=== PATIENT | female | born 1940 | race Caucasian/White ===

== ENCOUNTER 2017-02-28 17:03 | Inpatient (IN) | payer MEDICARE ==
[2017-02-28 17:04] VITALS: BMI 34.2
--- NOTE | 2017-02-28 17:21 | C.PDOC ---
History Of Present Illness 76 year old female was brought to the ED by EMS for complaints of sudden onset of shortness of breath. As per EMS, patient had diminished breath sounds and wheezing in the field. Patient was placed on BiPAP and denies fever, chest pain , weakness, or numbness. Time Seen by Provider: 02/28/17 17:15 Chief Complaint (Nursing): Respiratory Distress History Per: Patient History/Exam Limitations: no limitations Onset/Duration Of Symptoms: Hrs, Sudden Onset Current Symptoms Are (Timing): Still Present Associated Symptoms: denies: Nausea, Diaphoresis Recent travel outside of the [place]: No Additional History Per: Prior Records Past Medical History Vital Signs: Last Vital Signs Temp 99 F 02/28/17 17:23 Pulse 90 02/28/17 18:39 Resp 20 02/28/17 18:39 BP 131/74 02/28/17 18:39 Pulse Ox 98 02/28/17 19:42 - Medical History PMH: Alzheimer's Disease, Arthritis, Asthma, CHF, HTN, Hypercholesterolemia Denies: Chronic Kidney Disease Surgical History: Cholecystectomy - [facility] Procedures ASSISTANCE WITH RESPIRATORY VENTILATION, >96 HRS, CPAP (03/05/16) MEASURE OF CARDIAC SAMPL & PRESSURE, L HEART, PERC APPROACH (03/05/16) PLAIN RADIOGRAPHY OF LEFT HEART USING OTHER CONTRAST (03/05/16) PLAIN RADIOGRAPHY OF MULT COR ART USING OTH CONTRAST (03/05/16) Family History: States: Unknown Family Hx - Social History Hx Alcohol Use: No Hx Substance Use: No - Immunization History Hx Tetanus Toxoid Vaccination: Yes Hx Influenza Vaccination: Yes (2016) Hx Pneumococcal Vaccination: No Physical Exam - Physical Exam Appears: Non-toxic, In Acute Distress (moderate respiratory distress ) Skin: Warm, Dry Head: Atraumatic Eye(s): bilateral: Normal Inspection Oral Mucosa: Moist Neck: Supple Chest: Symmetrical, No Deformity Cardiovascular: Rhythm Regular, No Murmur Respiratory: Normal Breath Sounds, No Rales, No Rhonchi, No Wheezing Gastrointestinal/Abdominal: Soft, No Tenderness, No Distention, No Guarding, No Rebound Extremity: No Pedal Edema, No Calf Tenderness, Capillary Refill (good capillary refill, less than two seconds ), No Deformity, No Swelling Neurological/Psych: Oriented x3 ED Course And Treatment - Laboratory Results Result Diagrams: 02/28/17 18:18 02/28/17 18:18 Lab Interpretation: Abnormal ([facility] 3100 H) ECG: Interpreted By Me, Viewed By Me ECG Rhythm: Sinus Rhythm, L BBB (unchanged from prior) ECG Interpretation: Normal, Abnormal Rate From EC O2 Sat by Pulse Oximetry: 98 (room air ) - Radiology CXR: Interpreted by Me CXR Interpretation: Yes: Other (+CHF) Progress Note: lasix, BiPap well tolerated. 1800 and 0: d/w Dr. James, PMD , ok to tele Obs Medical Decision Making Medical Decision Making: CHF, hyponatremia diuresis will help with hyponatremia as well. Disposition Doctor Will See Patient In The: Hospital Counseled Patient/Family Regarding: Studies Performed, Diagnosis - Disposition Disposition: HOSPITALIZED Disposition Time: 19:42 Condition: GOOD - Clinical Impression Clinical Impression: Acute respiratory distress, CHF (congestive heart failure) - Scribe Statement The provider has reviewed the documentation as recorded by the Scribe Lola Tavarez All medical record entries made by the Scribe were at my direction and personally dictated by me. I have reviewed the chart and agree that the record accurately reflects my personal performance of the history, physical exam, medical decision making, and the department course for this patient. I have also personally directed, reviewed, and agree with the discharge instructions and disposition.
--- NOTE | 2017-02-28 17:40 | RAD ---
PROCEDURE: CHEST RADIOGRAPH, 1 VIEW HISTORY: SOB COMPARISON: Comparison is made to 03/05/2016 FINDINGS: LUNGS: There is mild to moderate pulmonary vascular congestion. Reticular opacity at the right lower lobe noted. PLEURA: This blunting of the right costophrenic angle. CARDIOVASCULAR: The cardiac silhouette is mildly enlarged. OSSEOUS STRUCTURES: No significant abnormalities. VISUALIZED UPPER ABDOMEN: Normal. OTHER FINDINGS: None. IMPRESSION: Suspicious for mild pulmonary vascular congestion. Reticular opacities at the right lower lobe may represent atelectasis. Blunting of the right costophrenic angle may be due to small pleural effusion. The
[2017-02-28 18:30] LABS: BASO # 0.1 K/uL (0.0-0.2); BASO % 0.6 % (0.0-2.0); EOS # 0.4 K/uL (0.0-0.7); HEMATOCRIT 38.7 % (34.0-47.0); LYMPH # 1.7 K/uL (1.0-4.3); LYMPH % 16.5 % (20.0-40.0); MEAN CELL VOLUME 88.2 fL (81.0-99.0); MEAN CORPUSCULAR HEMOGLOBIN 29.4 pg (27.0-31.0); MEAN CORPUSCULAR HGB CONC 33.4 g/dL (33.0-37.0); MEAN PLATELET VOLUME 7.5 fL (7.2-11.7); MONO # 0.3 K/uL (0.0-0.8); RED CELL DISTRIBUTION WIDTH 13.8 % (11.5-14.5); WHITE BLOOD COUNT 10.3 K/uL (4.8-10.8)
[2017-02-28 18:43] LABS: CHLORIDE 82 mmol/L (98-107)
[2017-02-28 18:44] LABS: POTASSIUM 5.1 mmol/L (3.6-5.2)
[2017-02-28 18:46] LABS: ALB/GLOB RATIO 1.3 (1.0-2.1); ALKALINE PHOSPHATASE 57 U/L (38-126); AST/SGOT 56 U/L (14-36); BILIRUBIN,TOTAL 0.8 mg/dL (0.2-1.3); BLOOD UREA NITROGEN 17 mg/dL (7-17); CARBON DIOXIDE 29 mmol/L (22-30); GFR AFRICAN-AMERICAN > 60; GLUCOSE,RANDOM 241 mg/dL (65-105); TOTAL PROTEIN 6.3 g/dL (6.3-8.3)
[2017-02-28 18:47] LABS: ALT/SGPT 36 U/L (9-52); CALCIUM 8.5 mg/dl (8.6-10.4)
[2017-02-28 19:06] LABS: SODIUM 117 mmol/L (132-148)
[2017-02-28 20:39] LABS: RBC URINE 11 /hpf (0-3); URINE BACTERIA RARE (<OCC); URINE BILIRUBIN NEGATIVE (NEGATIVE); URINE BLOOD 1+ (NEGATIVE); URINE COLOR Straw (YELLOW); URINE GLUCOSE (UA) 3+ mg/dL (Normal); URINE KETONE NEGATIVE (NEGATIVE); URINE LEUKOCYTE ESTERASE NEG Leu/uL (Negative); URINE PROTEIN 2+ mg/dL (NEGATIVE); URINE UROBILINOGEN NORMAL mg/dL (0.2-1.0); WBC URINE 4 /hpf (0-5)
--- NOTE | 2017-02-28 20:48 | CP.PCM.HP ---
History of Present Illness - History of Present Illness History of Present Illness: COMPREHENSIVE HISTORY & PHYSICAL EXAM HPI PT. IS C/O SOB FOR FEW DAYS WITH INCREASING LETHERGY . IN THE ER PT HAD NA OF 117, HIGH BNP WITH MILD CHF ON CXR . PT WAS GIVEN IV LASIX , 2 HRS LATER NA IS STILL 119 . SOB HAS IMPROVED ON BIPAP PAST HIST. WAS ADMITTED IN LAST YEAR WITH CP, POS TNI, CARDIAC CATH , NORMAL CORONARIES AND LV EF . PT WAS TREATED FOR COPD , DM PERSONAL HIST: Smoking. N Alcohol. N Allergy N Travel_- . FAMILY HIST : ROS : Constitutional: Negative for weight change, Eyes: Negative for redness, swelling, itching, discharge, vision changes, blurry vision, double vision, glaucoma, cataracts, Ears: Negative for hearing loss, ringing, , tinnitus, vertigo Nose: Negative for rhinorrhea, stuffiness, sniffing, itching, postnasal drip, discoloration, nasal congestion and epistaxis. Throat: Negative for throat clearing, sore throat, hoarseness, difficulty swallowing and difficulty speaking. Respiratory: Negative for cough, , sputum production, chest tightness, , pleuritic chest pain ,daytime somnolence, chronic cough, hemoptysis, snoring at night, Cardiovascular: Negative for chest pain, palpitations,Edema of legs, leg cramps , angina, claudication, , irregular heartbeat, Neurology: Negative for irritability, muscle weakness, numbness and tingling, seizures, tremors, migraines, slurred speech, syncope, memory loss, mood changes , recurrent headaches Gastrointestinal: Negative for difficulty swallowing, diarrhea, constipation, black stools, rectal bleeding, nausea, flatulence, reflux, poor appetite, changes in bowel habits, abdominal pain Genitourinary: Negative for frequent urination, hematuria, discharge, incontinence, urinary retention, frequent UTI, Psychiatric: Negative for depression, anxiety/panic, suicidal tendencies, Musculoskeletal: Negative for swollen joints, back pain, , neck pain, morning stiffness of joints, . Skin: Negative for rash, ulcers, itching, dry skin and pigmented lesions. P/E: Constitutional: Appears stated age and in no apparent distress. Head: Normocephalic. Ears: External ear canals patent without inflammation. Tympanic membranes intact with normal light reflex and landmark. Eyes: Pupils are central, bilaterally equal, symmetrical and reacts to light with normal movements and no icterus or pallor. Nose: External nares are patent. Mucosa is pink Mouth-Throat: Good general appearance and condition. No post-pharyngeal/oropharyngeal erythema and tonsillar hypertrophy. Good dental hygiene. Neck-Lymphatic: Neck is supple with normal ROM, no thyromegaly, lymph nodes or masses. JVD is normal with no carotid bruit. Lungs: JULIA RONCHI Cardiovascular: S1 and S2 are normal with no murmurs, gallops and rub. GI Exam: No hepatomegaly. Abdomen is soft and non-tender. No Organomegaly , masses or hernias are evident and bowel sounds are normal and active. Neurology: Higher function and all cranial nerves intact, with no gross motor or sensory deficit. Superficial and deep reflexes are normal with downwards planters. No cerebellar deficit with normal gait. Musculoskeletal: No tender spots with normal curvature of the spine with no swelling or restricted ROM of the small and large joints. Extremities: Homans sign absent. Intact pulses with no pitting edema, calf tenderness or skin color changes. Skin: No rash, eruptions or abnormal skin pigmentation LAB/RADIOLOGY: ASSESMENT : COPD WITH EXACERBATION DIASTOLIC HF , HFpEF HYPONATREMIA SEC TO INTRAVASCULAR VOL. EXPANSION HTN/T2DM PLAN: WILL NEED IV NS WITH LASIX NEPHROLOGY EVAL BRONCHODILATORS Present on Admission - Present on Admission Any Indicators Present on Admission: No Past Patient History - Past Medical History & Family History Past Medical History?: Yes - Past Social History Smoking Status: Never Smoked - CARDIAC Hx Congestive Heart Failure: Yes Hx Hypercholesterolemia: Yes Hx Hypertension: Yes - PULMONARY Hx Asthma: Yes - NEUROLOGICAL Hx Alzheimer's Disease: Yes - HEENT Hx HEENT Problems: Yes Hx Cataracts: Yes (bilateral) - RENAL Hx Chronic Kidney Disease: No - ENDOCRINE/METABOLIC Hx Endocrine Disorders: Yes Hx Diabetes Mellitus Type 2: Yes - HEMATOLOGICAL/ONCOLOGICAL Hx Blood Disorders: Yes - INTEGUMENTARY Hx Dermatological Problems: No - MUSCULOSKELETAL/RHEUMATOLOGICAL Hx Arthritis: Yes - GASTROINTESTINAL Hx Gastrointestinal Disorders: No - GENITOURINARY/GYNECOLOGICAL Hx Genitourinary Disorders: No - PSYCHIATRIC Hx Substance Use: No - SURGICAL HISTORY Hx Cholecystectomy: Yes - ANESTHESIA Hx Anesthesia: Yes Hx Anesthesia Reactions: No Hx Malignant Hyperthermia: No Meds Allergies/Adverse Reactions: Allergies Allergy/AdvReac Type Severity Reaction Status Date / Time No Known Allergies Allergy Verified 02/28/17 17:13 Results - Vital Signs Recent Vital Signs: Last Vital Signs Temp 99 F 02/28/17 17:23 Pulse 90 02/28/17 18:39 Resp 20 02/28/17 18:39 BP 131/74 02/28/17 18:39 Pulse Ox 98 02/28/17 19:42 - Labs Result Diagrams: 03/01/17 05:47 03/01/17 05:47 Labs: Laboratory Results - last 24 hr 02/28/17 20:25 Urine Color Straw Urine Clarity Clear Urine pH 6.0 Ur Specific [place] 1.003 Urine Protein 2+ H Urine Glucose (UA) 3+ H Urine Ketones Negative Urine Blood 1+ H Urine Nitrate Negative Urine Bilirubin Negative Urine Urobilinogen Normal Ur Leukocyte Esterase Neg Urine WBC (Auto) 4 Urine RBC (Auto) 11 H Urine Bacteria Rare
[2017-02-28] MEDS ORDERED: Home Med 1 UNIT (Atorvastatin Calcium [Atorvastatin Calcium] 10 MG) PO SCH (22:00)
[2017-02-28] MEDS: (Novolin R) Insulin Human Regular 100 units/ml vial SC SCH (22:56)
[2017-02-28 23:38] LABS: ALB/GLOB RATIO 1.3 (1.0-2.1); ALKALINE PHOSPHATASE 66 U/L (38-126); ALT/SGPT 43 U/L (9-52); AST/SGOT 26 U/L (14-36); BILIRUBIN,TOTAL 0.3 mg/dL (0.2-1.3); BLOOD UREA NITROGEN 18 mg/dL (7-17); CARBON DIOXIDE 25 mmol/L (22-30); CHLORIDE 82 mmol/L (98-107); GFR AFRICAN-AMERICAN > 60; GLUCOSE,RANDOM 271 mg/dL (65-105); TOTAL PROTEIN 5.9 g/dL (6.3-8.3)
[2017-02-28 23:48] LABS: SODIUM 119 mmol/L (132-148)
[2017-03-01] MEDS ORDERED: Sodium Chloride 0.9% 1,000 ML ONE (02:14)
[2017-03-01] MEDS: Sodium Chloride 0.9% 1,000 ML IV SCH (02:23)
[2017-03-01 02:34] LABS: URIC ACID 2.5 mg/dL (2.2-7.5)
[2017-03-01 03:05] LABS: CORTISOL AM 8.5 ug/dL (4.46-22.7)
[2017-03-01 03:06] LABS: THYROID STIMULATING HORMONE 1.44 mIU/L (0.46-4.68)
[2017-03-01 05:50] LABS: BASO % 0.4 % (0.0-2.0); EOS % 0.1 % (0.0-4.0); HEMATOCRIT 39.9 % (34.0-47.0); LYMPH % 9.4 % (20.0-40.0); MEAN CELL VOLUME 87.3 fL (81.0-99.0); MEAN CORPUSCULAR HEMOGLOBIN 29.3 pg (27.0-31.0); MEAN CORPUSCULAR HGB CONC 33.6 g/dL (33.0-37.0); MEAN PLATELET VOLUME 7.1 fL (7.2-11.7); MONO # 0.2 K/uL (0.0-0.8); MONO % 1.6 % (0.0-10.0); PLATELET COUNT 286 K/uL (130-400); RED CELL DISTRIBUTION WIDTH 13.8 % (11.5-14.5); WHITE BLOOD COUNT 10.2 K/uL (4.8-10.8)
[2017-03-01 06:16] LABS: ALB/GLOB RATIO 1.4 (1.0-2.1); BILIRUBIN,TOTAL 0.2 mg/dL (0.2-1.3); CALCIUM 9.2 mg/dl (8.6-10.4); POTASSIUM 4.2 mmol/L (3.6-5.2); TOTAL PROTEIN 6.3 g/dL (6.3-8.3)
[2017-03-01 07:32] LABS: NEUTROPHIL 93 % (50-75); TOTAL CELLS COUNTED 100
[2017-03-01] MEDS ORDERED: Tolvaptan 15 MG TAB PO ONE ×2 (09:05→11:00)
[2017-03-01] MEDS: (Novolin R) Insulin Human Regular 100 units/ml vial SC SCH ×4 (09:16→21:29)
[2017-03-01] MEDS ORDERED: LOTEPREDNOL ETABONATE OP SCH (10:00)
[2017-03-01] MEDS ORDERED: ALREX OU PRN (10:00)
[2017-03-01] MEDS: Aspirin 325 mg EC Tablets PO SCH (11:14)
[2017-03-01] MEDS: Multivitamin With Minerals Tab PO SCH (11:14)
[2017-03-01] MEDS: ALREX OU PRN (14:39)
--- NOTE | 2017-03-01 15:01 | CP.PCM.PN ---
Subjective - Date & Time of Evaluation Date of Evaluation: 03/01/17 Time of Evaluation: 15:01 - Subjective Subjective: Na IS NOW UP TO 123 Objective - Vital Signs/Intake and Output Vital Signs (last 24 hours): Temp Pulse Resp BP Pulse Ox 97.8 F 82 20 169/69 H 100 03/01/17 07:29 03/01/17 08:10 03/01/17 08:45 03/01/17 07:29 03/01/17 08:45 Intake and Output: 03/01/17 03/01/17 11:59 23:59 Intake Total 270 Output Total 1575 Balance -1305 - Medications Medications: Current Medications Allopurinol (Zyloprim) 300 mg PO DAILY [facility] Last Admin: 03/01/17 12:00 Dose: 300 mg Aspirin (Ecotrin) 325 mg PO DAILY [facility] Last Admin: 03/01/17 11:14 Dose: 325 mg Donepezil HCl (Aricept) 5 mg PO DAILY [facility] Last Admin: 03/01/17 11:15 Dose: 5 mg Gabapentin (Neurontin) 300 mg PO DAILY [facility] Last Admin: 03/01/17 11:15 Dose: 300 mg Glimepiride (Amaryl) 2 mg PO BID [facility] Last Admin: 03/01/17 11:17 Dose: 2 mg Home Med (Patient's Own Drops) 1 drop OU TID PRN PRN Reason: DIRECTED Last Admin: 03/01/17 14:39 Dose: 1 drop Sodium Chloride (Sodium Chloride 0.9%) 1,000 mls @ 40 mls/hr IV .Q24H [facility] Last Admin: 03/01/17 02:23 Dose: 40 mls/hr Insulin Human Regular (Novolin R) 0 unit SC ACHS [facility] PRN Reason: Protocol Last Admin: 03/01/17 13:30 Dose: Not Given Metoprolol Tartrate (Lopressor) 150 mg PO DAILY [facility] Last Admin: 03/01/17 11:17 Dose: 150 mg Multivitamins/Minerals (Therapeutic-M Tab) 1 tab PO DAILY [facility] Last Admin: 03/01/17 11:14 Dose: 1 tab Rosuvastatin Calcium (Crestor) 5 mg PO HS [facility] Last Admin: 02/28/17 23:08 Dose: 5 mg Sitagliptin Phosphate (Januvia) 50 mg PO DAILY [facility] Last Admin: 03/01/17 11:15 Dose: 50 mg - Labs Labs: 03/01/17 05:47 03/01/17 05:47
[2017-03-01 17:18] LABS: POTASSIUM 4.1 mmol/L (3.6-5.2)
[2017-03-01 17:21] LABS: CALCIUM 8.4 mg/dl (8.6-10.4)
--- NOTE | 2017-03-01 18:49 | CP.PCM.CON ---
History of Present Illness - History of Present Illness History of Present Illness: pt is seen and examined, full consult is dictated # 1. Hyponatremia 2. chf 3. htn r/o siadh vs sec to HCTZ bmp in am increase ivf 70 ml/hr Past Patient History - Past Medical History & Family History Past Medical History?: Yes - Past Social History Smoking Status: Never Smoked - CARDIAC Hx Congestive Heart Failure: Yes Hx Hypercholesterolemia: Yes Hx Hypertension: Yes - PULMONARY Hx Asthma: Yes - NEUROLOGICAL Hx Alzheimer's Disease: Yes - HEENT Hx HEENT Problems: Yes Hx Cataracts: Yes (bilateral) - RENAL Hx Chronic Kidney Disease: No - ENDOCRINE/METABOLIC Hx Endocrine Disorders: Yes Hx Diabetes Mellitus Type 2: Yes - HEMATOLOGICAL/ONCOLOGICAL Hx Blood Disorders: Yes - INTEGUMENTARY Hx Dermatological Problems: No - MUSCULOSKELETAL/RHEUMATOLOGICAL Hx Arthritis: Yes - GASTROINTESTINAL Hx Gastrointestinal Disorders: No - GENITOURINARY/GYNECOLOGICAL Hx Genitourinary Disorders: No - PSYCHIATRIC Hx Substance Use: No - SURGICAL HISTORY Hx Cholecystectomy: Yes - ANESTHESIA Hx Anesthesia: Yes Hx Anesthesia Reactions: No Hx Malignant Hyperthermia: No Meds Allergies/Adverse Reactions: Allergies Allergy/AdvReac Type Severity Reaction Status Date / Time No Known Allergies Allergy Verified 02/28/17 17:13 - Medications Medications: Current Medications Albuterol/Ipratropium (Duoneb 3 Mg/0.5 Mg (3 Ml) Ud) 3 ml INH RQ6 [facility] Allopurinol (Zyloprim) 300 mg PO DAILY [facility] Last Admin: 03/01/17 12:00 Dose: 300 mg Aspirin (Ecotrin) 325 mg PO DAILY [facility] Last Admin: 03/01/17 11:14 Dose: 325 mg Donepezil HCl (Aricept) 5 mg PO DAILY [facility] Last Admin: 03/01/17 11:15 Dose: 5 mg Gabapentin (Neurontin) 300 mg PO DAILY [facility] Last Admin: 03/01/17 11:15 Dose: 300 mg Glimepiride (Amaryl) 2 mg PO BID [facility] Last Admin: 03/01/17 17:32 Dose: 2 mg Heparin Sodium (Porcine) (Heparin) 5,000 units SC Q12 [facility] Home Med (Patient's Own Drops) 1 drop OU TID PRN PRN Reason: DIRECTED Last Admin: 03/01/17 14:39 Dose: 1 drop Sodium Chloride (Sodium Chloride 0.9%) 1,000 mls @ 40 mls/hr IV .Q24H [facility] Last Admin: 03/01/17 02:23 Dose: 40 mls/hr Insulin Human Regular (Novolin R) 0 unit SC ACHS [facility] PRN Reason: Protocol Last Admin: 03/01/17 16:41 Dose: 3 unit Metoprolol Tartrate (Lopressor) 150 mg PO DAILY [facility] Multivitamins/Minerals (Therapeutic-M Tab) 1 tab PO DAILY [facility] Last Admin: 03/01/17 11:14 Dose: 1 tab Pneumococcal Polyvalent Vaccine (Pneumovax 23 Vaccine) 0.5 ml IM .ONCE ONE Stop: 03/04/17 10:01 Rosuvastatin Calcium (Crestor) 5 mg PO HS [facility] Last Admin: 02/28/17 23:08 Dose: 5 mg Sitagliptin Phosphate (Januvia) 50 mg PO DAILY [facility] Last Admin: 03/01/17 11:15 Dose: 50 mg Results - Vital Signs Recent Vital Signs: Last Vital Signs Temp 98 F 03/01/17 15:12 Pulse 77 03/01/17 18:37 Resp 20 03/01/17 15:12 BP 166/79 H 03/01/17 15:12 Pulse Ox 100 03/01/17 15:12 - Labs Result Diagrams: 03/01/17 05:47 03/01/17 17:05 Labs: Laboratory Results - last 24 hr 02/28/17 02/28/17 02/28/17 20:25 22:33 23:15 WBC RBC Hgb Hct MCV MCH MCHC RDW Plt Count MPV Neut % (Auto) Lymph % (Auto) [place] % (Auto) Eos % (Auto) Baso % (Auto) Neut # Lymph # [place] # Eos # Baso # Neutrophils % (Manual) Lymphocytes % (Manual) Monocytes % (Manual) Platelet Estimate RBC Morphology Sodium 119 L* Potassium 4.0 Chloride 82 L Carbon Dioxide 25 Anion Gap 16 BUN 18 H Creatinine 1.0 Est GFR ( Amer) > 60 Est GFR (Non-Af Amer) 54 POC Glucose (mg/dL) 296 H Random Glucose 271 H Serum Osmolality Uric Acid Calcium 9.0 Total Bilirubin 0.3 AST 26 ALT 43 Alkaline Phosphatase 66 Total Creatine Kinase CK-MB (Mass) Troponin I, Quant Total Protein 5.9 L Albumin 3.3 L Globulin 2.6 Albumin/Globulin Ratio 1.3 TSH 3rd Generation Cortisol AM Sample Urine Color Straw Urine Clarity Clear Urine pH 6.0 Ur Specific [place] 1.003 Urine Protein 2+ H Urine Glucose (UA) 3+ H Urine Ketones Negative Urine Blood 1+ H Urine Nitrate Negative Urine Bilirubin Negative Urine Urobilinogen Normal Ur Leukocyte Esterase Neg Urine WBC (Auto) 4 Urine RBC (Auto) 11 H Urine Bacteria Rare Ur Random Sodium Ur Random Potassium 03/01/17 03/01/17 03/01/17 02:20 02:20 02:20 WBC RBC Hgb Hct MCV MCH MCHC RDW Plt Count MPV Neut % (Auto) Lymph % (Auto) [place] % (Auto) Eos % (Auto) Baso % (Auto) Neut # Lymph # [place] # Eos # Baso # Neutrophils % (Manual) Lymphocytes % (Manual) Monocytes % (Manual) Platelet Estimate RBC Morphology Sodium Potassium Chloride Carbon Dioxide Anion Gap BUN Creatinine Est GFR ( Amer) Est GFR (Non-Af Amer) POC Glucose (mg/dL) Random Glucose Serum Osmolality 272 Uric Acid 2.5 Calcium Total Bilirubin AST ALT Alkaline Phosphatase Total Creatine Kinase 127 CK-MB (Mass) 4.01 H Troponin I, Quant 0.0430 Total Protein Albumin Globulin Albumin/Globulin Ratio TSH 3rd Generation 1.44 Cortisol AM Sample 8.5 Urine Color Urine Clarity Urine pH Ur Specific [place] Urine Protein Urine Glucose (UA) Urine Ketones Urine Blood Urine Nitrate Urine Bilirubin Urine Urobilinogen Ur Leukocyte Esterase Urine WBC (Auto) Urine RBC (Auto) Urine Bacteria Ur Random Sodium Ur Random Potassium 03/01/17 03/01/17 03/01/17 02:20 05:47 05:47 WBC 10.2 RBC 4.57 Hgb 13.4 Hct 39.9 MCV 87.3 MCH 29.3 MCHC 33.6 RDW 13.8 Plt Count 286 MPV 7.1 L Neut % (Auto) 88.5 H Lymph % (Auto) 9.4 L [place] % (Auto) 1.6 Eos % (Auto) 0.1 Baso % (Auto) 0.4 Neut # 9.0 H Lymph # 1.0 [place] # 0.2 Eos # 0.0 Baso # 0.0 Neutrophils % (Manual) 93 H Lymphocytes % (Manual) 6 L Monocytes % (Manual) 1 Platelet Estimate Normal RBC Morphology Normal Sodium 123 L Potassium 4.2 Chloride 83 L Carbon Dioxide 26 Anion Gap 18 BUN 18 H Creatinine 1.2 Est GFR ( Amer) 53 Est GFR (Non-Af Amer) 44 POC Glucose (mg/dL) Random Glucose 306 H Serum Osmolality Uric Acid Calcium 9.2 Total Bilirubin 0.2 AST 25 ALT 39 Alkaline Phosphatase 66 Total Creatine Kinase CK-MB (Mass) Troponin I, Quant Total Protein 6.3 Albumin 3.7 Globulin 2.6 Albumin/Globulin Ratio 1.4 TSH 3rd Generation Cortisol AM Sample Urine Color Urine Clarity Urine pH Ur Specific [place] Urine Protein Urine Glucose (UA) Urine Ketones Urine Blood Urine Nitrate Urine Bilirubin Urine Urobilinogen Ur Leukocyte Esterase Urine WBC (Auto) Urine RBC (Auto) Urine Bacteria Ur Random Sodium 16 Ur Random Potassium 19.0 03/01/17 03/01/17 03/01/17 07:55 11:32 16:09 WBC RBC Hgb Hct MCV MCH MCHC RDW Plt Count MPV Neut % (Auto) Lymph % (Auto) [place] % (Auto) Eos % (Auto) Baso % (Auto) Neut # Lymph # [place] # Eos # Baso # Neutrophils % (Manual) Lymphocytes % (Manual) Monocytes % (Manual) Platelet Estimate RBC Morphology Sodium Potassium Chloride Carbon Dioxide Anion Gap BUN Creatinine Est GFR ( Amer) Est GFR (Non-Af Amer) POC Glucose (mg/dL) 306 H 312 H 243 H Random Glucose Serum Osmolality Uric Acid Calcium Total Bilirubin AST ALT Alkaline Phosphatase Total Creatine Kinase CK-MB (Mass) Troponin I, Quant Total Protein Albumin Globulin Albumin/Globulin Ratio TSH 3rd Generation Cortisol AM Sample Urine Color Urine Clarity Urine pH Ur Specific [place] Urine Protein Urine Glucose (UA) Urine Ketones Urine Blood Urine Nitrate Urine Bilirubin Urine Urobilinogen Ur Leukocyte Esterase Urine WBC (Auto) Urine RBC (Auto) Urine Bacteria Ur Random Sodium Ur Random Potassium 03/01/17 17:05 WBC RBC Hgb Hct MCV MCH MCHC RDW Plt Count MPV Neut % (Auto) Lymph % (Auto) [place] % (Auto) Eos % (Auto) Baso % (Auto) Neut # Lymph # [place] # Eos # Baso # Neutrophils % (Manual) Lymphocytes % (Manual) Monocytes % (Manual) Platelet Estimate RBC Morphology Sodium 123 L Potassium 4.1 Chloride 86 L Carbon Dioxide 27 Anion Gap 14 BUN 25 H Creatinine 1.1 Est GFR ( Amer) 58 Est GFR (Non-Af Amer) 48 POC Glucose (mg/dL) Random Glucose 194 H Serum Osmolality Uric Acid Calcium 8.4 L Total Bilirubin AST ALT Alkaline Phosphatase Total Creatine Kinase CK-MB (Mass) Troponin I, Quant Total Protein Albumin Globulin Albumin/Globulin Ratio TSH 3rd Generation Cortisol AM Sample Urine Color Urine Clarity Urine pH Ur Specific [place] Urine Protein Urine Glucose (UA) Urine Ketones Urine Blood Urine Nitrate Urine Bilirubin Urine Urobilinogen Ur Leukocyte Esterase Urine WBC (Auto) Urine RBC (Auto) Urine Bacteria Ur Random Sodium Ur Random Potassium
[2017-03-01] MEDS: Albuterol-Ipratrop 3 mg / 0.5 (3 ml) UD INH SCH (20:27)
[2017-03-02] MEDS: Albuterol-Ipratrop 3 mg / 0.5 (3 ml) UD INH SCH ×4 (01:52→19:32)
[2017-03-02] MEDS: Sodium Chloride 0.9% 1,000 ML IV SCH (01:54)
--- NOTE | 2017-03-02 06:39 | CON ---
RENAL CONSULTATION DATE: LOCATION: The patient is located in room 551, bed A. REQUESTING PHYSICIAN: Valerio James MD REASON FOR FOLLOWUP AND CONSULTATION: For evaluation of the hyponatremia. HISTORY OF PRESENT ILLNESS: Mrs. Chavez is a 76-year-old elderly obese female with a past medical history significant for longstanding hypertension, diabetes, hyperlipidemia, asthma, never intubated was admitted with a chief complaint of sudden on set of shortness of breath since yesterday morning. As per the patient's family, since she woke up yesterday morning, she started having shortness of breath and also wheezing. Complaints of cough associated with white sputum. Denies any fever. Denies any chest pain, palpitation. Denies any abdominal pain, nausea, vomiting, diarrhea. The patient was found to have hyponatremia in the emergency room and renal consult was requested for further evaluation of the hyponatremia. Denies any dysuria or frequency. Denies any swelling of the legs. Denies any diarrhea. PAST MEDICAL HISTORY: Significant for longstanding hypertension, diabetes, hyperlipidemia, and asthma. PAST SURGICAL HISTORY: Cholecystectomy about 3 to 4 years ago. ALLERGIES: NO KNOWN DRUG ALLERGIES. SOCIAL HISTORY: No smoking. No alcohol. No drugs. She is and she has 6 daughters and 1 son. FAMILY HISTORY: Not significant. Both parents are . CURRENT MEDICATIONS: Includes as follows: Amaryl 2 mg p.o. b.i.d., Aricept 5 mg p.o. daily, Crestor 5 mg p.o. at bedtime, DuoNeb inhaler, aspirin 325 mg p.o. daily, subcu heparin 5000 q. 12 hours, Januvia 50 mg p.o. daily, metoprolol 150 mg p.o. daily, Neurontin 300 mg p.o. daily, regular insulin per sliding scale, eye drops, pneumococcal vaccine x1, IV fluids normal saline at 40 mL per hour, multivitamin one tablet daily, and allopurinol 300 mg p.o. daily. HOME MEDICATIONS: Include: Valsartan with hydrochlorothiazide 320 and 25 mg daily. REVIEW OF SYSTEMS: Significant for cough, shortness of breath associated with white sputum and also hyponatremia. All other review of systems are reviewed and are negative. PHYSICAL EXAMINATION: VITAL SIGNS: Blood pressure 166/79, pulse is 78, respirations 20, temperature 98, saturation 100%. Height is 5 feet 2 inches and weight 220 pounds. BMI 40.2. GENERAL: Mrs. Chavez is a 76-year-old obese female, well build, well nourished, not in acute distress. HEENT: Pupils are normal and reactive to light and accommodation. Conjunctiva pink. Sclerae anicteric. Tongue is moist. Trachea is midline. LUNGS: Symmetric on both sides. Bilateral breath sounds present. Occasional basal crackles present and also the patient is wheezing on both sides and the patient has a expiratory wheeze, mild. CARDIOVASCULAR: [place] at the fifth intercostal space, midclavicular line. S1 and S2 audible. No murmur. No gallop. ABDOMEN: Normal in appearance. Protuberant, soft and tympanic. No guarding. No rigidity. No hepatosplenomegaly. CENTRAL NERVOUS SYSTEM: The patient is alert, awake, and oriented x3. Nonfocal neuro examination. Cranial nerves II through XII grossly intact. Sensory and motor system is within normal limits. EXTREMITIES: No cyanosis. No clubbing. Patient has a trace to 1+ edema in both lower extremities. LABORATORY DATA: Include as follows: As on 02/28/2017, WBC 10.3, hemoglobin 12.9, hematocrit is 38.7, platelets 297. Sodium 117, potassium 5.1, chloride 82, CO2 29, BUN 17, creatine 1.90, and glucose 241. Calcium 8.5. Total bilirubin 0.8, AST 56, ALT 36, and alkaline phosphatase 57, troponin is 0.028 and proBNP 3118, total protein 6.3, albumin is 3.6. Other laboratory data, urinalysis straw color clear, pH 6.0, specific gravity 1.003, protein is in the 2+, glucose is 3+, ketones negative, blood is 1+, nitrates negative, bilirubin is normal, urobilinogen normal, leukocytes negative, wbc 4, rbc 11, bacteria is rate. Urine sodium is 16, urine potassium is 19. TSH is 1.44, serum cortisol is 8.5, troponin 0.043. CPK is 127 and CK-MB is 4.01, serum osmolality is 272. Serum uric acid is 2.5. As of 03/31/2017, wbc 10.2, hemoglobin 13.4, hematocrit is 39.9, platelets 286. Sodium 123, potassium 4.2, chloride 83, CO2 26, BUN 18, creatine 1.2, and glucose 306. Calcium 9.2. Total protein 6.3, albumin is 2.7. As of 03/01/2017 at 1705, sodium is 123, potassium 4.1, chloride 86, CO2 27, BUN 25, creatine 1.1, and glucose 194. Calcium 8.4. Other reports, chest x-ray as of 02/28/2017, suspicious for mild pulmonary vascular congestion, reticular opacities at the right lower lobe, may represent atelectasis, blunting of the right costophrenic angle maybe due to small pleural effusion. ASSESSMENT AND PLAN: In summary, Mrs. Chavez is a 76-year-old elderly female with a history of hypertension, diabetes, gout, hyperlipidemia, asthma, was admitted with shortness of breath and cough associated with white sputum and also with expiratory wheeze and elevated proBNP levels. 1. Hyponatremia, most likely secondary to thiazide diuretic induced hyponatremia, doubt syndrome of inappropriate antidiuretic hormone secretion. The patient was given tolvaptan 15 mg p.o. x1 dose without significant improvement in the serum sodium level this evening. Continue IV fluids normal saline at 40 mL per hour and we will consider to increase 60 mL per hour and repeat BMP in a.m. and continue DuoNeb inhaler and consider pulmonary evaluation for possible asthma, chronic obstructive pulmonary disease exacerbation and also consider echocardiogram for left ventricular ejection fraction. 2. Hypertension. Blood pressure is stable. Continue her current medications. 3. Uncontrolled diabetes. Continue to monitor Accu-Chek and check hemoglobin A1c and lipid profile. We will follow with you. Thank you for allowing me to participate in your patient's care. Leo Ramírez MD
[2017-03-02 07:14] LABS: BASO # 0.1 K/uL (0.0-0.2); BASO % 0.5 % (0.0-2.0); EOS # 0.1 K/uL (0.0-0.7); EOS % 1.2 % (0.0-4.0); HEMATOCRIT 38.9 % (34.0-47.0); LYMPH # 1.3 K/uL (1.0-4.3); LYMPH % 11.2 % (20.0-40.0); MEAN CELL VOLUME 88.5 fL (81.0-99.0); MEAN CORPUSCULAR HGB CONC 32.8 g/dL (33.0-37.0); MONO # 0.7 K/uL (0.0-0.8); MONO % 6.1 % (0.0-10.0); NRBC % 0.1 % (0.0-2.0); RED CELL DISTRIBUTION WIDTH 14.1 % (11.5-14.5); WHITE BLOOD COUNT 11.4 K/uL (4.8-10.8)
[2017-03-02 07:54] LABS: POTASSIUM 3.7 mmol/L (3.6-5.2)
[2017-03-02 07:56] LABS: ALB/GLOB RATIO 1.4 (1.0-2.1); BILIRUBIN,TOTAL 0.3 mg/dL (0.2-1.3); TOTAL PROTEIN 5.9 g/dL (6.3-8.3)
[2017-03-02 07:57] LABS: CALCIUM 8.7 mg/dl (8.6-10.4)
[2017-03-02] MEDS: (Novolin R) Insulin Human Regular 100 units/ml vial SC SCH ×4 (09:33→21:05)
[2017-03-02] MEDS: Aspirin 325 mg EC Tablets PO SCH (09:35)
[2017-03-02] MEDS: Multivitamin With Minerals Tab PO SCH (09:35)
[2017-03-02] MEDS: ALREX OU PRN ×2 (09:43→13:15)
--- NOTE | 2017-03-02 13:30 | CP.PCM.PN ---
Subjective - Date & Time of Evaluation Date of Evaluation: 03/02/17 Time of Evaluation: 13:26 - Subjective Subjective: CHIEF COMPLAINTS TODAY : SOB BETTER NA NOW IS 133 ROS. HEENT : N. Resp : No cough, ,pleuritic CP ,or hemoptysis Cardio : No anginal CP, PND, orthopnea, palpitation GI : No abd.pain, n/v ,diarrhea or GI bleeding . URBAN DESIGN CONSULTANT : No headache, vertigo, focal deficit. Musculoskel : No joint swelling , Derm : No rash Psych : Normal affect. Ext : No swelling ,calf pain PE. Pt. is alert awake in no distress. V.S As noted in the chart Head ,ear nose,throat and eyes : Normal. Neck : Supple with normal carotids. Lungs: WHEEZING Heart : S1 & S2 normal with S4. No murmur. Abd : Soft non tender with normal bowel sounds. Neuro : Moves all ext. with no localized deficit. Ext : No edema with intact pulses.Non tender calves Derm : No rashes or decubitus ulcer. LABS/RADIOLOGY: ASSESSMENT/PLAN : CONT IV FLUIDS CHECK FOR SIADH Objective - Vital Signs/Intake and Output Vital Signs (last 24 hours): Temp Pulse Resp BP Pulse Ox 98.1 F 92 H 20 180/80 H 100 03/02/17 08:00 03/02/17 08:00 03/02/17 08:00 03/02/17 08:00 03/02/17 08:00 Intake and Output: 03/02/17 03/02/17 11:59 23:59 Output Total 1800 Balance -1800 - Medications Medications: Current Medications Albuterol/Ipratropium (Duoneb 3 Mg/0.5 Mg (3 Ml) Ud) 3 ml INH RQ6 [facility] Last Admin: 03/02/17 07:35 Dose: 3 ml Allopurinol (Zyloprim) 300 mg PO DAILY [facility] Last Admin: 03/02/17 09:35 Dose: 300 mg Aspirin (Ecotrin) 325 mg PO DAILY [facility] Last Admin: 03/02/17 09:35 Dose: 325 mg Donepezil HCl (Aricept) 5 mg PO DAILY [facility] Last Admin: 03/02/17 09:35 Dose: 5 mg Gabapentin (Neurontin) 300 mg PO DAILY [facility] Last Admin: 03/02/17 09:35 Dose: 300 mg Glimepiride (Amaryl) 2 mg PO BID [facility] Last Admin: 03/02/17 09:35 Dose: 2 mg Heparin Sodium (Porcine) (Heparin) 5,000 units SC Q12 [facility] Last Admin: 03/02/17 09:34 Dose: 5,000 units Home Med (Patient's Own Drops) 1 drop OU TID PRN PRN Reason: DIRECTED Last Admin: 03/02/17 13:15 Dose: 1 drop Sodium Chloride (Sodium Chloride 0.9%) 1,000 mls @ 40 mls/hr IV .Q24H [facility] Last Admin: 03/02/17 01:54 Dose: 40 mls/hr Insulin Human Regular (Novolin R) 0 unit SC ACHS [facility] PRN Reason: Protocol Last Admin: 03/02/17 13:15 Dose: 6 unit Metoprolol Tartrate (Lopressor) 150 mg PO DAILY [facility] Last Admin: 03/02/17 09:34 Dose: 150 mg Multivitamins/Minerals (Therapeutic-M Tab) 1 tab PO DAILY [facility] Last Admin: 03/02/17 09:35 Dose: 1 tab Pneumococcal Polyvalent Vaccine (Pneumovax 23 Vaccine) 0.5 ml IM .ONCE ONE Stop: 03/04/17 10:01 Rosuvastatin Calcium (Crestor) 5 mg PO HS [facility] Last Admin: 03/01/17 21:45 Dose: 5 mg Sitagliptin Phosphate (Januvia) 50 mg PO DAILY [facility] Last Admin: 03/02/17 09:35 Dose: 50 mg - Labs Labs: 03/02/17 07:05 03/02/17 07:05
--- NOTE | 2017-03-02 14:56 | RAD ---
PROCEDURE: CHEST RADIOGRAPH, 1 VIEW HISTORY: CHF COMPARISON: Portable chest 02/28/2017. FINDINGS: LUNGS: History volume appears diminished. Linear atelectasis appears somewhat shifted at the medial right lung zone with borderline medial basilar atelectasis or infiltrate present. PLEURA: No left pleural effusion identified. Trace right pleural effusion blunts the right costophrenic sulcus. No pneumothorax bilaterally. CARDIOVASCULAR: Cardiac silhouette appears stable. No pulmonary vascular derangement identified. OSSEOUS STRUCTURES: No significant abnormalities. VISUALIZED UPPER ABDOMEN: Normal. OTHER FINDINGS: None. IMPRESSION: Limited medial basilar atelectasis phase favored over infiltrates with shifting linear atelectasis identified in the medial right base. Trace right pleural effusion identified. None is noted at the left.
--- NOTE | 2017-03-02 15:57 | CARD ---
APPROVED REPORT EKG Measurement Heart [id number] <Conclusion> Sinus rhythm with sinus arrhythmia with 1st degree AV block Left axis deviation Left bundle branch block Abnormal ECG
[2017-03-02 17:08] LABS: ABG ALLEN TEST NEG; ARTERIAL BLOOD HGB O2 SAT 96.6 % (95.0-98.0); CARBOXYHEMOGLOBIN 2.2 % (0.5-1.5); DRAW SITE RBRACHIAL; HHB -0.3 % (0.0-5.0); METHEMOGLOBIN 1.5 % (0.0-3.0)
--- NOTE | 2017-03-02 18:56 | CP.PCM.PN ---
Subjective - Date & Time of Evaluation Date of Evaluation: 03/02/17 Time of Evaluation: 18:56 - Subjective Subjective: pt is seen and examined, follow up consult is dictated #[id number] check bmp in am Objective - Vital Signs/Intake and Output Vital Signs (last 24 hours): Temp Pulse Resp BP Pulse Ox 98.4 F 90 20 153/66 H 98 03/02/17 16:15 03/02/17 16:15 03/02/17 16:15 03/02/17 16:15 03/02/17 16:15 Intake and Output: 03/02/17 03/02/17 06:59 18:59 Intake Total 380 620 Output Total 2600 900 Balance -2220 -280 - Medications Medications: Current Medications Albuterol/Ipratropium (Duoneb 3 Mg/0.5 Mg (3 Ml) Ud) 3 ml INH RQ6 [facility] Last Admin: 03/02/17 13:25 Dose: 3 ml Allopurinol (Zyloprim) 300 mg PO DAILY [facility] Last Admin: 03/02/17 09:35 Dose: 300 mg Aspirin (Ecotrin) 325 mg PO DAILY [facility] Last Admin: 03/02/17 09:35 Dose: 325 mg Donepezil HCl (Aricept) 5 mg PO DAILY [facility] Last Admin: 03/02/17 09:35 Dose: 5 mg Gabapentin (Neurontin) 300 mg PO DAILY [facility] Last Admin: 03/02/17 09:35 Dose: 300 mg Glimepiride (Amaryl) 2 mg PO BID [facility] Last Admin: 03/02/17 17:32 Dose: 2 mg Heparin Sodium (Porcine) (Heparin) 5,000 units SC Q12 [facility] Last Admin: 03/02/17 09:34 Dose: 5,000 units Home Med (Patient's Own Drops) 1 drop OU TID PRN PRN Reason: DIRECTED Last Admin: 03/02/17 13:15 Dose: 1 drop Sodium Chloride (Sodium Chloride 0.9%) 1,000 mls @ 40 mls/hr IV .Q24H [facility] Last Admin: 03/02/17 01:54 Dose: 40 mls/hr Insulin Human Regular (Novolin R) 0 unit SC ACHS [facility] PRN Reason: Protocol Last Admin: 03/02/17 16:30 Dose: 6 unit Methylprednisolone (Solu-Medrol) 40 mg IVP Q8 [facility] Metoprolol Tartrate (Lopressor) 150 mg PO DAILY [facility] Last Admin: 03/02/17 09:34 Dose: 150 mg Multivitamins/Minerals (Therapeutic-M Tab) 1 tab PO DAILY [facility] Last Admin: 03/02/17 09:35 Dose: 1 tab Pneumococcal Polyvalent Vaccine (Pneumovax 23 Vaccine) 0.5 ml IM .ONCE ONE Stop: 03/04/17 10:01 Rosuvastatin Calcium (Crestor) 5 mg PO [facility] Last Admin: 03/01/17 21:45 Dose: 5 mg Sitagliptin Phosphate (Januvia) 50 mg PO DAILY [facility] Last Admin: 03/02/17 09:35 Dose: 50 mg - Labs Labs: 03/02/17 07:05 03/02/17 07:05
[2017-03-02] MEDS ORDERED: Albuterol 0.083% Inhal Sol (2.5 mg/3 mL) UD INH SCH (20:00)
[2017-03-02] MEDS: MethylPREDNISolone 40 mg Vial IVP SCH (21:36)
[2017-03-03] MEDS: Albuterol-Ipratrop 3 mg / 0.5 (3 ml) UD INH SCH ×3 (01:14→13:17)
[2017-03-03] MEDS: MethylPREDNISolone 40 mg Vial IVP SCH ×2 (06:32→13:11)
[2017-03-03 07:25] LABS: BASO % 0.2 % (0.0-2.0); HEMATOCRIT 36.7 % (34.0-47.0); LYMPH # 0.4 K/uL (1.0-4.3); LYMPH % 4.2 % (20.0-40.0); MEAN CELL VOLUME 89.2 fL (81.0-99.0); MEAN CORPUSCULAR HGB CONC 33.6 g/dL (33.0-37.0); MEAN PLATELET VOLUME 8.2 fL (7.2-11.7); MONO # 0.1 K/uL (0.0-0.8); MONO % 1.2 % (0.0-10.0); PLATELET COUNT 277 K/uL (130-400); RED CELL DISTRIBUTION WIDTH 13.9 % (11.5-14.5); WHITE BLOOD COUNT 9.8 K/uL (4.8-10.8)
[2017-03-03 07:59] LABS: POTASSIUM 4.3 mmol/L (3.6-5.2)
[2017-03-03 08:01] LABS: ALB/GLOB RATIO 1.3 (1.0-2.1); BILIRUBIN,TOTAL 0.4 mg/dL (0.2-1.3); TOTAL PROTEIN 5.9 g/dL (6.3-8.3)
[2017-03-03 08:02] LABS: CALCIUM 8.1 mg/dl (8.6-10.4)
[2017-03-03 08:40] VITALS: O2SAT 98
[2017-03-03 08:58] LABS: NEUTROPHIL 94 % (50-75); TOTAL CELLS COUNTED 100
--- NOTE | 2017-03-03 09:15 | RAD ---
Chest x-ray single frontal view History: Shortness of breath. Comparison: 03/02/2017 Findings: Moderate venous congestion with bibasilar airspace opacities and small bilateral pleural effusions. Cardiomegaly. Calcification at the aortic knob. Scattered upper lobe granulomatous changes. Few soft tissue calcifications seen in the right axilla. Degenerative changes in the spine and shoulders. Impression: Moderate venous congestion with bibasilar airspace opacities and small bilateral pleural effusions. Cardiomegaly. Calcification at the aortic knob. Scattered upper lobe granulomatous changes. Few soft tissue calcifications seen in the right axilla.
[2017-03-03] MEDS: ALREX OU PRN ×2 (09:40→13:14)
[2017-03-03] MEDS: (Novolin R) Insulin Human Regular 100 units/ml vial SC SCH ×3 (09:40→17:02)
[2017-03-03] MEDS: Multivitamin With Minerals Tab PO SCH (09:41)
[2017-03-03] MEDS: Aspirin 325 mg EC Tablets PO SCH (09:41)
[2017-03-03 10:10] LABS: CHLORIDE URINE 33 mmol/L (32-290)
--- NOTE | 2017-03-03 10:23 | CON ---
FOLLOWUP RENAL CONSULTATION LOCATION: The patient is located in room 551, bed A. REQUESTED BY: Dr. Valerio James. REASON FOR THE FOLLOWUP AND EVALUATION: Hyponatremia, for further evaluation. HISTORY OF PRESENT ILLNESS: The patient is a 76-year-old elderly obese female with past medical history significant for long-standing hypertension, diabetes, asthma, hyperlipidemia, was admitted with chief complaint of shortness of breath and the patient was found to have a low serum sodium and also shortness of breath and wheezing. The patient was started on inhalers, DuoNeb, and also started on IV Solu-Medrol today. The patient is feeling much better, not in acute distress. The patient was given one dose of tolvaptan 15 mg and now her serum sodium has today went up to 133. The patient is off IV fluids. The patient is not in distress, feeling much better today. No chest pain, no palpitation, no fever, no cough, no abdominal pain. No nausea, vomiting, or diarrhea. No edema of the legs. PHYSICAL EXAMINATION: VITAL SIGNS: As follow, blood pressure 153/66, pulse 90, respirations 20, temperature 98.4, saturation 98%. Height 5 feet 2 inches and weight is 200 pounds. GENERAL: The patient is a 76-year-old elderly female, obese, well built, well nourished, not in acute distress. HEENT: Pupils are normal, reactive to light and accommodation. Conjunctivae are pink. Sclerae are anicteric. Tongue is moist. Trachea is midline. LUNGS: Symmetric on both sides. Bilateral breath sounds present, Clear on auscultation. CARDIOVASCULAR SYSTEM: [place] at the fifth intercostal space, midclavicular line. S1 and S2 audible. No murmur, no gallop. ABDOMEN: Normal in appearance. Soft and tympanic. No guarding. No hepatosplenomegaly. CENTRAL NERVOUS SYSTEM: The patient is alert, awake, and oriented x3. Nonfocal neuro examination. Cranial nerves II through XII grossly intact. Sensory and motor system is within normal limits. EXTREMITIES: No cyanosis, no clubbing, no edema. CURRENT MEDICATIONS: Include as follows; glimepiride 2 mg p.o. b.i.d., Aricept 5 mg p.o. daily, Crestor 5 mg at bedtime, DuoNeb inhaler 3 mL q. 6 hours, aspirin 325 mg daily, subq heparin 5000 q. 12 hours, Januvia 50 mg p.o. daily, metoprolol 150 mg p.o. daily, Neurontin 300 mg p.o. daily, Novolin R per sliding scale, Solu-Medrol 40 mg IV q. 8 hours, multivitamins 1 tablet daily and allopurinol 300 mg p.o. daily LABORATORY DATA: Include as follows; as of 03/02/2017, WBC 11.4, hemoglobin 12.8, hematocrit is 28.9, and platelets 300. Sodium 133, potassium 3.7, chloride 95, CO2 of 29, BUN 24, creatinine 1.2, glucose 163, calcium 8.7, total bilirubin 0.3, AST 25, ALT 42, alkaline phosphatase is 63, total CPK is 106, CK-MB is 4.4, troponin 0.038, total protein 5.9, albumin is 3.4 and Accu-Cheks 327, 324 and 295. ABG; pH 7.40, pCO2 of 46, pO2 of 146, bicarbonate is 27.3, saturation 100%. ASSESSMENT: In summary, the patient is a 76-year-old elderly female with history of long-standing hypertension, diabetes, hyperlipidemia, asthma and gout, was admitted with shortness of breath, wheezing and low serum sodium, on Diovan with hydrochlorothiazide 320/25 mg. 1. Hyponatremia, most likely secondary to thiazide diuretic-induced hyponatremia, cannot rule out syndrome of inappropriate antidiuretic hormone secretion less likely, all the workup was within normal limits. 2. Exacerbation of asthma. 3. Hypertension. 4. Diabetes. 5. Gout, stable. PLAN: Continue her current medication and allopurinol and continue DuoNeb inhaler, agree with IV Solu-Medrol. Continue to monitor sugars closely, and adjust insulin as per the sugar. We will follow with you. Thank you for allowing me to participate in your patient's care. Repeat BMP in a.m. Leo Ramírez MD
--- NOTE | 2017-03-03 12:08 | CP.PCM.PN ---
Subjective - Date & Time of Evaluation Date of Evaluation: 03/03/17 Time of Evaluation: 12:07 - Subjective Subjective: pt is seen and examined, follow up consult is dictated #[id number] check urine lytes, osm, start ivf ns at 60 ml/hr hold lasix, pt's medications reviewed Objective - Vital Signs/Intake and Output Vital Signs (last 24 hours): Temp Pulse Resp BP Pulse Ox 97.6 F 87 18 178/81 H 98 03/03/17 07:05 03/03/17 07:05 03/03/17 07:05 03/03/17 07:05 03/03/17 07:05 Intake and Output: 03/03/17 03/03/17 06:59 18:59 Intake Total 280 200 Output Total 760 700 Balance -480 -500 - Medications Medications: Current Medications Albuterol/Ipratropium (Duoneb 3 Mg/0.5 Mg (3 Ml) Ud) 3 ml INH RQ6 [facility] Last Admin: 03/03/17 07:28 Dose: 3 ml Allopurinol (Zyloprim) 300 mg PO DAILY [facility] Last Admin: 03/03/17 09:41 Dose: 300 mg Aspirin (Ecotrin) 325 mg PO DAILY [facility] Last Admin: 03/03/17 09:41 Dose: 325 mg Donepezil HCl (Aricept) 5 mg PO DAILY [facility] Last Admin: 03/03/17 09:41 Dose: 5 mg Furosemide (Lasix) 20 mg IVP DAILY [facility] Gabapentin (Neurontin) 300 mg PO DAILY [facility] Last Admin: 03/03/17 09:41 Dose: 300 mg Glimepiride (Amaryl) 2 mg PO BID [facility] Last Admin: 03/03/17 09:41 Dose: 2 mg Heparin Sodium (Porcine) (Heparin) 5,000 units SC Q12 [facility] Last Admin: 03/03/17 09:41 Dose: 5,000 units Home Med (Patient's Own Drops) 1 drop OU TID PRN PRN Reason: DIRECTED Last Admin: 03/03/17 09:40 Dose: 1 drop Sodium Chloride (Sodium Chloride 0.9%) 1,000 mls @ 60 mls/hr IV .[id number] [facility] Insulin Human Regular (Novolin R) 0 unit SC ACHS [facility] PRN Reason: Protocol Last Admin: 03/03/17 09:40 Dose: 6 unit Methylprednisolone (Solu-Medrol) 40 mg IVP Q8 [facility] Last Admin: 03/03/17 06:32 Dose: 40 mg Metoprolol Tartrate (Lopressor) 150 mg PO DAILY [facility] Last Admin: 03/03/17 09:41 Dose: 150 mg Multivitamins/Minerals (Therapeutic-M Tab) 1 tab PO DAILY [facility] Last Admin: 03/03/17 09:41 Dose: 1 tab Pneumococcal Polyvalent Vaccine (Pneumovax 23 Vaccine) 0.5 ml IM .ONCE ONE Stop: 03/04/17 10:01 Rosuvastatin Calcium (Crestor) 5 mg PO HS [facility] Last Admin: 03/02/17 21:38 Dose: 5 mg Sitagliptin Phosphate (Januvia) 50 mg PO DAILY [facility] Last Admin: 03/03/17 09:41 Dose: 50 mg - Labs Labs: 03/03/17 07:09 03/03/17 07:09
[2017-03-03] MEDS ORDERED: Sodium Chloride 0.9% 1,000 ML IV SCH (12:15)
--- NOTE | 2017-03-03 12:44 | CP.PCM.PN ---
Subjective - Date & Time of Evaluation Date of Evaluation: 03/03/17 Time of Evaluation: 12:43 - Subjective Subjective: CHIEF COMPLAINTS TODAY : SOB AT REST ROS. HEENT : N. Resp : No cough, ,pleuritic CP ,or hemoptysis Cardio : No anginal CP, PND, orthopnea, palpitation GI : No abd.pain, n/v ,diarrhea or GI bleeding . BENCH SCIENTIST : No headache, vertigo, focal deficit. Musculoskel : No joint swelling , Derm : No rash Psych : Normal affect. Ext : No swelling ,calf pain PE. Pt. is alert awake in no distress. V.S As noted in the chart Head ,ear nose,throat and eyes : Normal. Neck : Supple with normal carotids. Lungs: WHEEZING Heart : S1 & S2 normal with S4. No murmur. Abd : Soft non tender with normal bowel sounds. Neuro : Moves all ext. with no localized deficit. Ext : No edema with intact pulses.Non tender calves Derm : No rashes or decubitus ulcer. LABS/RADIOLOGY: CXR CHF ASSESSMENT/PLAN : ADD SMALL DOSE LASIX O2 IS OK Objective - Vital Signs/Intake and Output Vital Signs (last 24 hours): Temp Pulse Resp BP Pulse Ox 97.6 F 87 18 178/81 H 98 03/03/17 07:05 03/03/17 07:05 03/03/17 07:05 03/03/17 07:05 03/03/17 07:05 Intake and Output: 03/03/17 03/03/17 11:59 23:59 Intake Total 200 Output Total 700 Balance -500 - Medications Medications: Current Medications Albuterol/Ipratropium (Duoneb 3 Mg/0.5 Mg (3 Ml) Ud) 3 ml INH RQ6 [facility] Last Admin: 03/03/17 07:28 Dose: 3 ml Allopurinol (Zyloprim) 300 mg PO DAILY [facility] Last Admin: 03/03/17 09:41 Dose: 300 mg Aspirin (Ecotrin) 325 mg PO DAILY [facility] Last Admin: 03/03/17 09:41 Dose: 325 mg Donepezil HCl (Aricept) 5 mg PO DAILY [facility] Last Admin: 03/03/17 09:41 Dose: 5 mg Furosemide (Lasix) 20 mg IVP DAILY [facility] Gabapentin (Neurontin) 300 mg PO DAILY [facility] Last Admin: 03/03/17 09:41 Dose: 300 mg Glimepiride (Amaryl) 2 mg PO BID [facility] Last Admin: 03/03/17 09:41 Dose: 2 mg Heparin Sodium (Porcine) (Heparin) 5,000 units SC Q12 [facility] Last Admin: 03/03/17 09:41 Dose: 5,000 units Home Med (Patient's Own Drops) 1 drop OU TID PRN PRN Reason: DIRECTED Last Admin: 03/03/17 09:40 Dose: 1 drop Sodium Chloride (Sodium Chloride 0.9%) 1,000 mls @ 60 mls/hr IV .[id number] [facility] Insulin Human Regular (Novolin R) 0 unit SC ACHS [facility] PRN Reason: Protocol Last Admin: 03/03/17 09:40 Dose: 6 unit Methylprednisolone (Solu-Medrol) 40 mg IVP Q8 [facility] Last Admin: 03/03/17 06:32 Dose: 40 mg Metoprolol Tartrate (Lopressor) 150 mg PO DAILY [facility] Last Admin: 03/03/17 09:41 Dose: 150 mg Multivitamins/Minerals (Therapeutic-M Tab) 1 tab PO DAILY [facility] Last Admin: 03/03/17 09:41 Dose: 1 tab Pneumococcal Polyvalent Vaccine (Pneumovax 23 Vaccine) 0.5 ml IM .ONCE ONE Stop: 03/04/17 10:01 Rosuvastatin Calcium (Crestor) 5 mg PO HS [facility] Last Admin: 03/02/17 21:38 Dose: 5 mg Sitagliptin Phosphate (Januvia) 50 mg PO DAILY [facility] Last Admin: 03/03/17 09:41 Dose: 50 mg - Labs Labs: 03/03/17 07:09 03/03/17 07:09
[2017-03-03 15:40] VITALS: BP 162/79; PULSE 73; RESP 20; TEMP 97.5
--- NOTE | 2017-03-03 16:38 | PCM.HF ---
Heart Failure Core Measure - Heart Failure Ejection Fraction: 40 % or Greater ELROY Inhibitor Prescribed: No Contraindication/Reason for not providing: on ARB Beta-Adrian Prescribed: Metoprolol Succinate Angiotensin II Receptor Adrian Prescribed: Yes AnticoagulationTherapy for Atrial Fibrillation/Atrialflutter: No Contraindication/Reason for not providing: no hx of a fib Aldosterone Antagonist Prescribed: No Contraindication/Reason for not providing: EF>50 Hydralazine Nitrate Prescribed: No Contraindication/Reason for not providing: ef>50 Implantable Cardioverter Defibrillator Therapy: No Contraindication/Reason for not providing: ef>50 Cardiac Resynchronization Therapy Prescribed: No Contraindication/Reason for not providing: ef>50 - Follow up Will be discharged to: Home Follow Up Date (must be within 7 days from discharge): 03/06/17 Follow Up Time: 09:00
--- NOTE | 2017-03-03 18:54 | CARD ---
APPROVED REPORT EXAM: Two-dimensional and M-mode echocardiogram with Doppler and color Doppler. Other Information Quality : AverageRhythm : INDICATION Congestive Heart Failure RISK FACTORS Hypertension Obesity Hyperlipidemia 2D DIMENSIONS IVSd1.2 (0.7-1.1cm)LVDd4.4 (3.9-5.9cm) LVOT Diameter2.1 (1.8-2.4cm)PWd1.3 (0.7-1.1cm) LVDs3.1 (2.5-4.0cm)FS (%) 28.9 % LVEF (%)55.8 (>50%) Aortic Valve AoV Peak Jjmrykjv853.1cm/sAoV VTI49.4cmAO Peak GR.19mmHg LVOT Peak Ypkwuqof13.4cm/sLVOT VTI20.15cmAO Mean GR.11mmHg CHELSIE (VMAX)1.43gw0RNH (VTI)1.46cm2 Mitral Valve E/A ratio0.0 TDI E/Lateral E'0.0E/Medial E'0.0 Tricuspid Valve TR Peak [id number]/sTR Peak Gr.72ecEnBXYL80stMc LEFT VENTRICLE The left ventricle is normal size. There is mild to moderate concentric left ventricular hypertrophy. The left ventricular function is normal. The left ventricular ejection fraction is within the normal range. About 60&. There is mild hypokinesis of the apical spptum. Transmitral Doppler flow pattern is Grade I-abnormal relaxation pattern. No left ventricle thrombus noted on this study. There is no ventricular septal defect visualized. There is no left ventricular aneurysm. There is no mass noted in the left ventricle. RIGHT VENTRICLE The right ventricle is normal size. There is normal right ventricular wall thickness. The right ventricular systolic function is normal. ATRIA The left atrium size is normal. The right atrium size is normal. The interatrial septum is intact with no evidence for an atrial septal defect. AORTIC VALVE Markedly calcified aortic valve with reduced opening. Peak gradient is 19 mm Hg, estimated valve area is 1.4 cm2. No aortic regurgitation is present. There is no aortic valvular vegetation. MITRAL VALVE The mitral valve is normal in structure and function. There is no evidence of mitral valve prolapse. There is no mitral valve stenosis. There ismildo mitral valve regurgitation noted. TRICUSPID VALVE The tricuspid valve is normal in structure and function. There mild no tricuspid valve regurgitation noted. Estimated PA systolic pressure is 38 mm Hg. There is no tricuspid valve prolapse or vegetation. There is no tricuspid valve stenosis. PULMONIC VALVE The pulmonary valve is normal in structure and function. There is no pulmonic valvular regurgitation. There is no pulmonic valvular stenosis. GREAT VESSELS The aortic root is normal in size. The ascending aorta is normal in size. The pulmonary artery is normal. The IVC is normal in size and collapses >50% with inspiration. PERICARDIAL EFFUSION The pericardium appears normal. There is no pleural effusion. <Conclusion> The left ventricular function is overall normal. There is mild hypokinesis of the apical spptum. The left ventricular ejection fraction is within the normal range. About 60&. Markedly calcified aortic valve with reduced opening. The left cusp is not well seen. Peak gradient is 19 mm Hg, estimated valve area is 1.4 cm2. Visually however, valve area appears less and aortic stenosis more severe. Clinical correlation.
--- NOTE | 2017-03-03 22:36 | CARD ---
APPROVED REPORT EKG Measurement Heart [id number] <Conclusion> Normal sinus rhythm Left bundle branch block Abnormal ECG
--- NOTE | 2017-03-04 04:13 | PN ---
DATE: FOLLOWUP RENAL CONSULTATION LOCATION: The patient is located in room 551, bed A. REQUESTED BY: Valerio James MD REASON FOR THE FOLLOWUP: Hyponatremia. HISTORY OF PRESENT ILLNESS: Mrs. Chavez is a 76-year-old elderly obese [place] female with a history of longstanding hypertension, diabetes, asthma and hyperlipidemia who was admitted with chief complaints of shortness of breath and wheezing and also found to have a low serum sodium. The patient was on Diovan with hydrochlorothiazide at home. The patient is not in acute distress. The patient is feeling much better this morning. The patient is also being treated for acute exacerbation of asthma. No chest pain, no palpitation, no fever, no cough, and no abdominal pain. No nausea, vomiting, or diarrhea. No edema of the legs. PHYSICAL EXAMINATION VITAL SIGNS: This morning as follow, blood pressure of 146/78, pulse of 80, respirations about 18, temperature of 97.6, and oxygen saturation of 98%. Height is 5 feet 2 inches and weight is 200 pounds. GENERAL: Mrs. Chavez is 76-year-old elderly female, well built, well nourished, not in acute distress. HEENT: Pupils are normally reactive to light and accommodation. Conjunctivae are pink. Sclerae are anicteric. Tongue is moist. Trachea is midline. LUNGS: Symmetric on both sides. Bilateral breath sounds present. Clear on auscultation. CARDIOVASCULAR SYSTEM: Beryl at the fifth intercostal space, midclavicular line. S1 and S2 audible. No murmur, no gallop. ABDOMEN: Normal in appearance. Soft and tympanic. No guarding. No rigidity. No hepatosplenomegaly. CENTRAL NERVOUS SYSTEM: The patient is alert, awake, and oriented x3. Nonfocal neuro examination. Cranial nerves II through XII grossly intact. Sensory and motor system is within normal limits. EXTREMITIES: No cyanosis. No clubbing. No edema. LABORATORY DATA: Her current laboratory data includes as follows: As of 03/03/2017, WBC of 9.8, hemoglobin of 12.3, hematocrit is 36.7, and platelets of 277. Sodium is 130, potassium is 4.3, chloride is 95, CO2 is 25 BUN is 22, creatine is 1.2, and glucose is 304. Calcium is 8.1. Total bilirubin is 0.4, AST is 19, ALT is 36, alkaline phosphatase is 63 and total protein is 5.9, and albumin is 3.4. Accu-Chek this afternoon is 448. Other laboratory data, urine osmolality is 412, urine sodium is 19, and urine potassium is 20.1. IMPRESSION AND PLAN: In summary, Mrs. Chavez is a 76-year-old elderly female with hypertension, diabetes, chronic obstructive pulmonary disease and asthma was admitted with hyponatremia. 1. Hyponatremia, most likely secondary to thiazide-induced diuretics, doubt syndrome of inappropriate antidiuretic hormone secretion. Serum sodium improved. Now the corrected sodium is about 133 to 134. 2. Chronic obstructive pulmonary disease and asthma exacerbation. Continue DuoNeb inhaler and Solu-Medrol as per the PMD. 3. Hypertension, blood pressure is stable. 4. Uncontrolled diabetes, most likely secondary to steroids. The patient is stable from the renal standpoint. Consider to hold Lasix and start IV fluids normal saline at 60 mL per hour. Accu-Chek coverage for uncontrolled diabetes. Thank you for allowing me to participate in your patient's care. Leo Ramírez MD
[2017-03-04 09:59] LABS: CHLORIDE URINE 26 mmol/L (32-290)
[2017-03-04] MEDS ORDERED: Pneumococcal 23-Valent Vaccine IM ONE (10:00)
--- NOTE | 2017-03-05 12:28 | CP.PCM.DIS ---
Provider - Provider Date of Admission: 02/28/17 19:39 Attending physician: Valerio James MD Time Spent in preparation of Discharge (in minutes): 30 Hospital Course - Lab Results Lab Results: Micro Results 02/28/17 18:40 Blood Blood Culture - Preliminary NO GROWTH AFTER 4 DAYS 02/28/17 17:45 Blood Blood Culture - Preliminary NO GROWTH AFTER 4 DAYS Most Recent Lab Values WBC 9.8 K/uL (4.8-10.8) 03/03/17 07:09 RBC 4.11 Mil/uL (3.80-5.20) 03/03/17 07:09 Hgb 12.3 g/dL (11.0-16.0) 03/03/17 07:09 Hct 36.7 % (34.0-47.0) 03/03/17 07:09 MCV 89.2 fL (81.0-99.0) 03/03/17 07:09 MCH 30.0 pg (27.0-31.0) 03/03/17 07:09 MCHC 33.6 g/dL (33.0-37.0) 03/03/17 07:09 RDW 13.9 % (11.5-14.5) 03/03/17 07:09 Plt Count 277 K/uL (130-400) 03/03/17 07:09 MPV 8.2 fL (7.2-11.7) 03/03/17 07:09 Neut % (Auto) 94.4 % (50.0-75.0) H 03/03/17 07:09 Lymph % (Auto) 4.2 % (20.0-40.0) L 03/03/17 07:09 [place] % (Auto) 1.2 % (0.0-10.0) 03/03/17 07:09 Eos % (Auto) 0.0 % (0.0-4.0) 03/03/17 07:09 Baso % (Auto) 0.2 % (0.0-2.0) 03/03/17 07:09 Neut # 9.3 K/uL (1.8-7.0) H 03/03/17 07:09 Lymph # 0.4 K/uL (1.0-4.3) L 03/03/17 07:09 [place] # 0.1 K/uL (0.0-0.8) 03/03/17 07:09 Eos # 0.0 K/uL (0.0-0.7) 03/03/17 07:09 Baso # 0.0 K/uL (0.0-0.2) 03/03/17 07:09 Neutrophils % (Manual) 94 % (50-75) H 03/03/17 07:09 Lymphocytes % (Manual) 5 % (20-40) L 03/03/17 07:09 Monocytes % (Manual) 1 % (0-10) 03/03/17 07:09 Platelet Estimate Normal (NORMAL) 03/03/17 07:09 RBC Morphology Normal 03/01/17 05:47 Tear Drop Cells Slight 03/03/17 07:09 Ovalocytes Slight 03/03/17 07:09 Luis A Cells Slight 03/03/17 07:09 Puncture Site Rbrachial 03/02/17 17:00 pCO2 46 mm/Hg (35-45) H 03/02/17 17:00 pO2 146 mm/Hg (80-100) H 03/02/17 17:00 HCO3 27.3 mmol/L (21-28) 03/02/17 17:00 ABG pH 7.40 (7.35-7.45) 03/02/17 17:00 ABG Total CO2 29.9 mmol/L (22-28) H 03/02/17 17:00 ABG O2 Saturation 100.3 % (95-98) H 03/02/17 17:00 ABG Base Excess 3.1 mmol/L (-2.0-3.0) H 03/02/17 17:00 ABG Hemoglobin 11.3 g/dL (11.7-17.4) L 03/02/17 17:00 ABG Carboxyhemoglobin 2.2 % (0.5-1.5) H 03/02/17 17:00 POC ABG HHb (Measured) -0.3 % (0.0-5.0) L 03/02/17 17:00 ABG Methemoglobin 1.5 % (0.0-3.0) 03/02/17 17:00 Telly Test Neg 03/02/17 17:00 A-a O2 Difference 25.0 mm/Hg 03/02/17 17:00 Respiratory Index 0.2 03/02/17 17:00 Hgb O2 Saturation 96.6 % (95.0-98.0) 03/02/17 17:00 Liter Flow 3.0 03/02/17 17:00 FiO2 32.0 % 03/02/17 17:00 Sodium 130 mmol/L (132-148) L 03/03/17 07:09 Potassium 4.3 mmol/L (3.6-5.2) 03/03/17 07:09 Chloride 95 mmol/L (98-107) L 03/03/17 07:09 Carbon Dioxide 25 mmol/L (22-30) 03/03/17 07:09 Anion Gap 14 (10-20) 03/03/17 07:09 BUN 22 mg/dL (7-17) H 03/03/17 07:09 Creatinine 1.2 MG/DL (0.7-1.2) 03/03/17 07:09 Est GFR ( Amer) 53 03/03/17 07:09 Est GFR (Non-Af Amer) 44 03/03/17 07:09 POC Glucose (mg/dL) 383 mg/dL (65-110) H 03/03/17 16:30 Random Glucose 304 mg/dL (65-105) H 03/03/17 07:09 Serum Osmolality 272 mosm/kg (272-300) 03/01/17 02:20 Uric Acid 2.5 mg/dL (2.2-7.5) 03/01/17 02:20 Calcium 8.1 mg/dl (8.6-10.4) L 03/03/17 07:09 Total Bilirubin 0.4 mg/dL (0.2-1.3) 03/03/17 07:09 AST 19 U/L (14-36) 03/03/17 07:09 ALT 36 U/L (9-52) 03/03/17 07:09 Alkaline Phosphatase 63 U/L (38-126) 03/03/17 07:09 Total Creatine Kinase 106 U/L (30-135) 03/02/17 07:05 CK-MB (Mass) 4.42 ng/mL (0.0-3.38) H 03/02/17 07:05 Troponin I 0.0280 ng/mL (0.00-0.120) 02/28/17 18:18 Troponin I, Quant 0.0380 ng/mL (0.00-0.120) 03/02/17 07:05 NT-Pro-B Natriuret Pep 3180 pg/mL (0-900) H 02/28/17 18:18 Total Protein 5.9 g/dL (6.3-8.3) L 03/03/17 07:09 Albumin 3.4 g/dL (3.5-5.0) L 03/03/17 07:09 Globulin 2.5 gm/dL (2.2-3.9) 03/03/17 07:09 Albumin/Globulin Ratio 1.3 (1.0-2.1) 03/03/17 07:09 TSH 3rd Generation 1.44 mIU/L (0.46-4.68) 03/01/17 02:20 Cortisol AM Sample 8.5 ug/dL (4.46-22.7) 03/01/17 02:20 Urine Color Straw (YELLOW) 02/28/17 20:25 Urine Clarity Clear (Clear) 02/28/17 20:25 Urine pH 6.0 (5.0-8.0) 02/28/17 20:25 Ur Specific Brush 1.003 (1.003-1.030) 02/28/17 20:25 Urine Protein 2+ mg/dL (NEGATIVE) H 02/28/17 20:25 Urine Glucose (UA) 3+ mg/dL (Normal) H 02/28/17 20:25 Urine Ketones Negative mg/dL (NEGATIVE) 02/28/17 20:25 Urine Blood 1+ (NEGATIVE) H 02/28/17 20:25 Urine Nitrate Negative (NEGATIVE) 02/28/17 20:25 Urine Bilirubin Negative (NEGATIVE) 02/28/17 20:25 Urine Urobilinogen Normal mg/dL (0.2-1.0) 02/28/17 20:25 Ur Leukocyte Esterase Neg Liza/uL (Negative) 02/28/17 20:25 Urine WBC (Auto) 4 /hpf (0-5) 02/28/17 20:25 Urine RBC (Auto) 11 /hpf (0-3) H 02/28/17 20:25 Urine Bacteria Rare (<OCC) 02/28/17 20:25 Urine Osmolality 412 mosm/kg (300-1000) 03/03/17 14:18 Ur Random Sodium 19 mmol/L 03/03/17 14:18 Ur Random Potassium 20.1 mmol/L 03/03/17 14:18 Urine Chloride 26 mmol/L (32-290) L 03/03/17 14:18 - Hospital Course Hospital Course: PT. IS C/O SOB FOR FEW DAYS WITH INCREASING LETHERGY . IN THE ER PT HAD NA OF 117, HIGH BNP WITH MILD CHF ON CXR . PT WAS GIVEN IV LASIX , 2 HRS LATER NA IS STILL 119 . SOB HAS IMPROVED ON BIPAP PAST HIST. WAS ADMITTED IN LAST YEAR WITH CP, POS TNI, CARDIAC CATH , NORMAL CORONARIES AND LV EF . PT WAS TREATED FOR COPD , DM NEPHROLOGY WAS CONSULTED NA IMPROVED WITH IV FLUIDS AND LASIX PT AND FAMILY WERE INSISTENT TO GET DISCHARGE PT WAS D./PEDRO HOME ALL INST. GIVEN Discharge Plan - Discharge Medications Prescriptions: Furosemide [Lasix] 20 mg PO DAILY #15 tablet predniSONE [Prednisone] 20 mg PO DAILY #9 tab Valsartan 320 mg PO DAILY #30 tablet - Follow Up Plan Condition: GOOD Disposition: HOME/ ROUTINE Instructions: Heart Failure (DC), COPD (Chronic Obstructive Pulmonary Disease) (DC) Additional Instructions: Please f/u with Dr. Jane Brito office on thursday/ thu. needs blood work to be done Continue medication as per Med. REc. Please last picker medication from pharmacy
== END 2017-03-03 17:15 | disposition home or self-care (01) | DRG 191 ==
LOC: C.ER 17:03 → C.9E 19:39 → C.5S 03-01 07:54
PROVIDERS: ADMIT Internal Medicine Cardiovascular Disease; ATTEND Internal Medicine Cardiovascular Disease
PROC: 5A09457 Assistance with Respiratory Ventilation, 24-96 Consecutive Hours, Continuous Positive Airway Pressure (ICD-10-PCS; principal; 2017-02-28)
DX: J44.1 Chronic obstructive pulmonary disease with (acute) exacerbation (principal); J45.901 Unspecified asthma with (acute) exacerbation; E11.65 Type 2 diabetes mellitus with hyperglycemia; E87.1 Hypo-osmolality and hyponatremia; I50.30 Unspecified diastolic (congestive) heart failure; I11.0 Hypertensive heart disease with heart failure; Z68.41 Body mass index [BMI] 40.0-44.9, adult; J98.11 Atelectasis; G30.9 Alzheimer's disease, unspecified; F02.80 Dementia in other diseases classified elsewhere, unspecified severity, without behavioral disturbance, psychotic disturbance, mood disturbance, and anxiety; E78.00 Pure hypercholesterolemia, unspecified; M19.90 Unspecified osteoarthritis, unspecified site; Z90.49 Acquired absence of other specified parts of digestive tract; E66.9 Obesity, unspecified; M10.9 Gout, unspecified; T50.2X5A Adverse effect of carbonic-anhydrase inhibitors, benzothiadiazides and other diuretics, initial encounter; Z79.4 Long term (current) use of insulin

== ENCOUNTER 2017-03-04 16:56 | Inpatient (IN) | payer MEDICARE ==
[2017-03-04 16:56] VITALS: BMI 34.2
--- NOTE | 2017-03-04 17:29 | C.PDOC ---
History Of Present Illness 76 y/o female who was recently admitted to [facility] by Dr. James for CHF , discharged home last night around 6:30, reports she woke up at 04:00 with recurrence of symptoms including SOB and chest discomfort. Patient was reportedly given 20 mg of Lasix at 14:00 today. During hospital stay, patient was treated with BIPAP and IV abx. As per prior records, patient had some wheezing with no peripheral edema yesterday, and was not SOB or coughing at time of discharge. Otherwise, denies fever, chills, nausea, vomiting, or other associated symptoms. Time Seen by Provider: 03/04/17 17:11 Chief Complaint (Nursing): Shortness Of Breath History Per: Patient History/Exam Limitations: no limitations Onset/Duration Of Symptoms: Hrs Current Symptoms Are (Timing): Still Present Current Respiratory Medications: See Home Med List Associated Symptoms: Chest Pain. denies: Bloody Cough, Productive Cough Recent travel outside of the [place]: No Past Medical History Reviewed: Historical Data, Nursing Documentation, Vital Signs Vital Signs: Last Vital Signs Temp 97.2 F L 03/04/17 16:58 Pulse 82 03/04/17 18:41 Resp 24 03/04/17 18:13 BP 178/76 H 03/04/17 18:13 Pulse Ox 98 03/04/17 18:17 - Medical History PMH: Alzheimer's Disease, Arthritis, Asthma, CHF, HTN, Hypercholesterolemia Surgical History: Cholecystectomy - [facility] Procedures ASSISTANCE WITH RESPIRATORY VENTILATION, 24-96 HRS, CPAP (02/28/17) ASSISTANCE WITH RESPIRATORY VENTILATION, >96 HRS, CPAP (03/05/16) MEASURE OF CARDIAC SAMPL & PRESSURE, L HEART, PERC APPROACH (03/05/16) PLAIN RADIOGRAPHY OF LEFT HEART USING OTHER CONTRAST (03/05/16) PLAIN RADIOGRAPHY OF MULT COR ART USING OTH CONTRAST (03/05/16) Family History: States: Unknown Family Hx - Social History Hx Alcohol Use: No Hx Substance Use: No - Immunization History Hx Tetanus Toxoid Vaccination: Yes Hx Influenza Vaccination: Yes Hx Pneumococcal Vaccination: No Review Of Systems Except As Marked, All Systems Reviewed And Found Negative. Constitutional: Negative for: Fever, Chills Cardiovascular: Positive for: Chest Pain, Edema (bilateral lower extremities). Negative for: Palpitations Respiratory: Positive for: Shortness of Breath. Negative for: Cough Gastrointestinal: Negative for: Nausea, Vomiting, Abdominal Pain Skin: Negative for: Rash Neurological: Negative for: Dizziness Physical Exam - Physical Exam Appears: Non-toxic, No Acute Distress Skin: Normal Color, Warm, Dry Head: Atraumatic, Normacephalic Oral Mucosa: Moist Chest: Symmetrical Cardiovascular: Rhythm Regular Respiratory: Rales, No Wheezing Gastrointestinal/Abdominal: Soft, No Tenderness, No Guarding, No Rebound Back: Normal Inspection Extremity: Normal ROM, Other (pitting edema bilateral lower extremities) Neurological/Psych: Oriented x3, Normal Speech, Normal Cognition ED Course And Treatment - Laboratory Results Result Diagrams: 03/04/17 17:34 03/04/17 17:34 Lab Interpretation: Abnormal (WBC 15.2 with left shift, Na 126, BUN 28, Trop 0.2020, BNP 18585) ECG: Interpreted By Me ECG Rhythm: Sinus Rhythm (with PACs), L BBB (with left axis deviation and inferior and anterolateral infarct) ECG Interpretation: No Changes From Prior O2 Sat by Pulse Oximetry: 98 (RA) Pulse Ox Interpretation: Normal - Radiology CXR: Interpreted by Me CXR Interpretation: Yes: Cardiomegaly (with pleural effusions and vascular congestion) Progress Note: EKG, CxR, bloodwork, Lasix IV ordered. - Physician Consult Information Time Consulting Physician Contacted: 18:16 Physician Contacted: Valerio James Outcome Of Conversation: Patient to be admitted for diuresis Disposition - Disposition Disposition: HOSPITALIZED Disposition Time: 19:21 Condition: FAIR - POA Present On Arrival: None, Poor Glycemic Control - Clinical Impression Clinical Impression: CHF (congestive heart failure) - Scribe Statement The provider has reviewed the documentation as recorded by the Scribe SM All medical record entries made by the Scribe were at my direction and personally dictated by me. I have reviewed the chart and agree that the record accurately reflects my personal performance of the history, physical exam, medical decision making, and the department course for this patient. I have also personally directed, reviewed, and agree with the discharge instructions and disposition.
[2017-03-04 17:39] LABS: BASO % 0.3 % (0.0-2.0); HEMATOCRIT 38.7 % (34.0-47.0); LYMPH # 0.7 K/uL (1.0-4.3); LYMPH % 4.3 % (20.0-40.0); MEAN CELL VOLUME 88.9 fL (81.0-99.0); MEAN CORPUSCULAR HEMOGLOBIN 29.7 pg (27.0-31.0); MEAN CORPUSCULAR HGB CONC 33.4 g/dL (33.0-37.0); MEAN PLATELET VOLUME 7.7 fL (7.2-11.7); MONO # 0.8 K/uL (0.0-0.8); MONO % 5.2 % (0.0-10.0); NRBC % 0.1 % (0.0-2.0); PLATELET COUNT 381 K/uL (130-400); WHITE BLOOD COUNT 15.2 K/uL (4.8-10.8)
[2017-03-04 17:47] LABS: POTASSIUM 4.3 mmol/L (3.6-5.2)
[2017-03-04 17:49] LABS: ALB/GLOB RATIO 1.3 (1.0-2.1); BILIRUBIN,TOTAL 0.6 mg/dL (0.2-1.3); TOTAL PROTEIN 6.6 g/dL (6.3-8.3)
[2017-03-04 17:50] LABS: CALCIUM 7.9 mg/dl (8.6-10.4); MAGNESIUM 1.9 mg/dL (1.6-2.3)
[2017-03-04 18:04] LABS: TROPONIN I 0.202 ng/mL (0.00-0.120)
--- NOTE | 2017-03-04 18:15 | RAD ---
HISTORY: SOB COMPARISON: Chest x-ray performed 03/02/17. TECHNIQUE: Chest, one view. FINDINGS: Examination limited by habitus. LUNGS: Small bilateral pleural effusions and associated consolidations. No definite pneumothorax. CARDIOVASCULAR: Partially obscured cardiomegaly. OSSEOUS STRUCTURES: Degenerative changes. VISUALIZED UPPER ABDOMEN: Unremarkable. OTHER FINDINGS: None. IMPRESSION: Small bilateral pleural effusions and associated consolidations. Partially obscured cardiomegaly.
[2017-03-04 18:31] LABS: INR 0.9
[2017-03-04 18:59] LABS: NEUTROPHIL 91 % (50-75); TOTAL CELLS COUNTED 100
[2017-03-04] MEDS ORDERED: Albuterol-Ipratrop 3 mg / 0.5 (3 ml) UD INH PRN (21:34)
[2017-03-04] MEDS ORDERED: methylPREDNISolone 40 MG in Sodium Chloride 0.9% 100 ML IVPB SCH (22:00)
[2017-03-04] MEDS ORDERED: Home Med 1 UNIT (Atorvastatin Calcium [Atorvastatin Calcium] 10 MG) PO SCH (22:00)
[2017-03-04] MEDS ORDERED: Sodium Chloride 0.9% 100 ML ONE (22:07)
[2017-03-04] MEDS: (Novolin R) Insulin Human Regular 100 units/ml vial SC SCH (22:14)
--- NOTE | 2017-03-04 22:20 | CP.PCM.HP ---
History of Present Illness - History of Present Illness History of Present Illness: COMPREHENSIVE HISTORY & PHYSICAL EXAM HPI ADMITTED FROM ER WITH INCREASING SOB PT WAS D/C [facility] ON 03/03/17, AFTER COPD WITH EXACERBATION . CARDIAC W/U NEG . HAD LOW NA , WAS CORRECTED WITH IV FLUIDS AND LASIX PAST HIST. HTN/DM/NORMAL CORONARIES PERSONAL HIST: Smoking. N Alcohol. N Allergy N Travel_- . FAMILY HIST : ROS : Constitutional: Negative for weight change, chills, night sweats, Eyes: Negative for redness, swelling, itching, discharge, vision changes, blurry vision, double vision, glaucoma, cataracts, Ears: Negative for hearing loss, ringing, , tinnitus, vertigo Nose: Negative for rhinorrhea, stuffiness, sniffing, itching, postnasal drip, discoloration, nasal congestion and epistaxis. Throat: Negative for throat clearing, sore throat, hoarseness, difficulty swallowing and difficulty speaking. Respiratory: POS for cough, , sputum production, chest tightness, wheezing , NO pleuritic chest pain ,daytime somnolence, chronic cough, hemoptysis, snoring at night, Cardiovascular: Negative for chest pain, palpitations, orthopnea, PND, Edema of legs, leg cramps, angina, claudication, , irregular heartbeat, Neurology: Negative for irritability, muscle weakness, numbness and tingling, seizures, tremors, migraines, slurred speech, syncope, memory loss, mood changes , recurrent headaches Gastrointestinal: Negative for difficulty swallowing, diarrhea, constipation, black stools, rectal bleeding, nausea, flatulence, reflux, poor appetite, changes in bowel habits, abdominal pain Genitourinary: Negative for frequent urination, hematuria, discharge, incontinence, urinary retention, frequent UTI, Psychiatric: Negative for depression, anxiety/panic, suicidal tendencies, Musculoskeletal: Negative for swollen joints, back pain, , neck pain, morning stiffness of joints, . Skin: Negative for rash, ulcers, itching, dry skin and pigmented lesions. P/E: Constitutional: Appears stated age and in no apparent distress. Head: Normocephalic. Ears: External ear canals patent without inflammation. Tympanic membranes intact with normal light reflex and landmark. Eyes: Pupils are central, bilaterally equal, symmetrical and reacts to light with normal movements and no icterus or pallor. Nose: External nares are patent. Mucosa is pink Mouth-Throat: Good general appearance and condition. No post-pharyngeal/oropharyngeal erythema and tonsillar hypertrophy. Good dental hygiene. Neck-Lymphatic: Neck is supple with normal ROM, no thyromegaly, lymph nodes or masses. JVD is normal with no carotid bruit. Lungs: JULIA BASAL CREPTS Cardiovascular: S1 and S2 are normal with no murmurs, gallops and rub. GI Exam: No hepatomegaly. Abdomen is soft and non-tender. No Organomegaly , masses or hernias are evident and bowel sounds are normal and active. Neurology: Higher function and all cranial nerves intact, with no gross motor or sensory deficit. Superficial and deep reflexes are normal with downwards planters. No cerebellar deficit with normal gait. Musculoskeletal: No tender spots with normal curvature of the spine with no swelling or restricted ROM of the small and large joints. Extremities: Homans sign absent. Intact pulses with no pitting edema, calf tenderness or skin color changes. Skin: No rash, eruptions or abnormal skin pigmentation LAB/RADIOLOGY: ASSESMENT : COPD WITH EXACERBATION ACUTE ON CH. DIASTOLIC HF T2DM PLAN: SEE ORDERS Present on Admission - Present on Admission Any Indicators Present on Admission: No Past Patient History - Past Medical History & Family History Past Medical History?: Yes - Past Social History Smoking Status: Never Smoked - CARDIAC Hx Congestive Heart Failure: Yes Hx Hypercholesterolemia: Yes Hx Hypertension: Yes - PULMONARY Hx Asthma: Yes - NEUROLOGICAL Hx Alzheimer's Disease: Yes - HEENT Hx HEENT Problems: Yes Hx Cataracts: Yes (bilateral) - RENAL Hx Chronic Kidney Disease: No - ENDOCRINE/METABOLIC Hx Diabetes Mellitus Type 2: Yes - HEMATOLOGICAL/ONCOLOGICAL Hx Blood Disorders: Yes - INTEGUMENTARY Hx Dermatological Problems: No - MUSCULOSKELETAL/RHEUMATOLOGICAL Hx Arthritis: Yes - GASTROINTESTINAL Hx Gastrointestinal Disorders: No - GENITOURINARY/GYNECOLOGICAL Hx Genitourinary Disorders: No - PSYCHIATRIC Hx Substance Use: No - SURGICAL HISTORY Hx Cholecystectomy: Yes - ANESTHESIA Hx Anesthesia: Yes Hx Anesthesia Reactions: No Hx Malignant Hyperthermia: No Meds Allergies/Adverse Reactions: Allergies Allergy/AdvReac Type Severity Reaction Status Date / Time No Known Allergies Allergy Verified 02/28/17 17:13 Results - Vital Signs Recent Vital Signs: Last Vital Signs Temp 97.2 F L 03/04/17 16:58 Pulse 81 03/04/17 19:45 Resp 19 03/04/17 19:45 BP 171/67 H 03/04/17 19:45 Pulse Ox 100 03/04/17 19:45 - Labs Result Diagrams: 03/05/17 07:10 03/05/17 07:10 Labs: Laboratory Results - last 24 hr 03/04/17 03/04/17 03/04/17 17:34 17:34 18:19 WBC 15.2 H D RBC 4.35 Hgb 12.9 Hct 38.7 MCV 88.9 MCH 29.7 MCHC 33.4 RDW 14.0 Plt Count 381 D MPV 7.7 Neut % (Auto) 90.2 H Lymph % (Auto) 4.3 L [place] % (Auto) 5.2 Eos % (Auto) 0.0 Baso % (Auto) 0.3 Neut # 13.7 H Lymph # 0.7 L [place] # 0.8 Eos # 0.0 Baso # 0.0 Neutrophils % (Manual) 91 H Lymphocytes % (Manual) 6 L Monocytes % (Manual) 3 Platelet Estimate Normal PT 10.4 INR 0.9 APTT 29 Sodium 126 L Potassium 4.3 Chloride 90 L Carbon Dioxide 26 Anion Gap 14 BUN 28 H Creatinine 1.1 Est GFR ( Amer) 58 Est GFR (Non-Af Amer) 48 POC Glucose (mg/dL) Random Glucose 235 H Calcium 7.9 L Magnesium 1.9 Total Bilirubin 0.6 AST 35 ALT 47 Alkaline Phosphatase 57 Troponin I 0.2020 H* NT-Pro-B Natriuret Pep 72735 H Total Protein 6.6 Albumin 3.7 Globulin 2.8 Albumin/Globulin Ratio 1.3 03/04/17 22:12 WBC RBC Hgb Hct MCV MCH MCHC RDW Plt Count MPV Neut % (Auto) Lymph % (Auto) [place] % (Auto) Eos % (Auto) Baso % (Auto) Neut # Lymph # [place] # Eos # Baso # Neutrophils % (Manual) Lymphocytes % (Manual) Monocytes % (Manual) Platelet Estimate PT INR APTT Sodium Potassium Chloride Carbon Dioxide Anion Gap BUN Creatinine Est GFR ( Amer) Est GFR (Non-Af Amer) POC Glucose (mg/dL) 110 Random Glucose Calcium Magnesium Total Bilirubin AST ALT Alkaline Phosphatase Troponin I NT-Pro-B Natriuret Pep Total Protein Albumin Globulin Albumin/Globulin Ratio
[2017-03-05 07:26] LABS: BASO % 0.2 % (0.0-2.0); EOS % 0.1 % (0.0-4.0); LYMPH # 0.6 K/uL (1.0-4.3); LYMPH % 7.8 % (20.0-40.0); MEAN CELL VOLUME 88.3 fL (81.0-99.0); MONO # 0.1 K/uL (0.0-0.8); NRBC % 0.2 % (0.0-2.0); PLATELET COUNT 311 K/uL (130-400); RED CELL DISTRIBUTION WIDTH 13.6 % (11.5-14.5); WHITE BLOOD COUNT 7.5 K/uL (4.8-10.8)
[2017-03-05] MEDS: MethylPREDNISolone 40 mg Vial IVP SCH ×3 (07:36→21:10)
[2017-03-05 07:42] LABS: POTASSIUM 3.8 mmol/L (3.6-5.2)
[2017-03-05 07:44] LABS: ALB/GLOB RATIO 1.3 (1.0-2.1); BILIRUBIN,TOTAL 0.4 mg/dL (0.2-1.3); TOTAL PROTEIN 5.8 g/dL (6.3-8.3)
[2017-03-05 07:45] LABS: CALCIUM 8.1 mg/dl (8.6-10.4)
[2017-03-05] MEDS: (Novolin R) Insulin Human Regular 100 units/ml vial SC SCH ×4 (08:16→23:00)
[2017-03-05 08:36] LABS: NEUTROPHIL 90 % (50-75); TOTAL CELLS COUNTED 100
[2017-03-05] MEDS: Aspirin 325 mg EC Tablets PO SCH (09:07)
[2017-03-05] MEDS: (Lantus) Insulin Glargine, Recombinant SC SCH ×2 (09:08→17:28)
[2017-03-05] MEDS ORDERED: MULTIVIT IRON MIN PO SCH (10:00)
[2017-03-05] MEDS ORDERED: FOLIC ACID PO SCH (10:00)
[2017-03-05] MEDS ORDERED: LOTEPREDNOL ETABONATE OP SCH (10:00)
[2017-03-05] MEDS ORDERED: VALSARTAN 320 MG PO SCH (10:00)
--- NOTE | 2017-03-05 12:09 | CP.PCM.PN ---
Subjective - Date & Time of Evaluation Date of Evaluation: 03/05/17 Time of Evaluation: 12:07 - Subjective Subjective: CHIEF COMPLAINTS TODAY : LESS SOB , COMFORTABLE ROS. HEENT : N. Resp : MILD cough, wheezing NO ,pleuritic CP ,or hemoptysis Cardio : No anginal CP, PND, orthopnea, palpitation GI : No abd.pain, n/v ,diarrhea or GI bleeding . SCRAP HOOKER : No headache, vertigo, focal deficit. Musculoskel : No joint swelling , Derm : No rash Psych : Normal affect. Ext : No swelling ,calf pain PE. Pt. is alert awake in no distress. V.S As noted in the chart Head ,ear nose,throat and eyes : Normal. Neck : Supple with normal carotids. Lungs: CREPTS . Heart : S1 & S2 normal with S4. No murmur. Abd : Soft non tender with normal bowel sounds. Neuro : Moves all ext. with no localized deficit. Ext : No edema with intact pulses.Non tender calves Derm : No rashes or decubitus ulcer. LABS/RADIOLOGY: ASSESSMENT/PLAN : CONT. 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 Objective - Vital Signs/Intake and Output Vital Signs (last 24 hours): Temp Pulse Resp BP Pulse Ox 98.1 F 82 20 190/92 H 100 03/05/17 08:21 03/05/17 08:21 03/05/17 08:21 03/05/17 09:07 03/05/17 08:21 Intake and Output: 03/05/17 03/05/17 11:59 23:59 Intake Total 100 Output Total 250 Balance -150 - Medications Medications: Current Medications Albuterol/Ipratropium (Duoneb 3 Mg/0.5 Mg (3 Ml) Ud) 3 ml INH RQ4 PRN PRN Reason: Shortness of Breath Allopurinol (Zyloprim) 300 mg PO DAILY [facility] Last Admin: 03/05/17 09:11 Dose: 300 mg Aspirin (Ecotrin) 325 mg PO DAILY [facility] Last Admin: 03/05/17 09:07 Dose: 325 mg Furosemide (Lasix) 20 mg IVP DAILY [facility] Last Admin: 03/05/17 09:07 Dose: 20 mg Gabapentin (Neurontin) 300 mg PO DAILY [facility] Last Admin: 03/05/17 09:07 Dose: 300 mg Glimepiride (Amaryl) 2 mg PO BID [facility] Last Admin: 03/05/17 09:07 Dose: 2 mg Heparin Sodium (Porcine) (Heparin) 5,000 units SC Q12 [facility] Last Admin: 03/05/17 09:08 Dose: 5,000 units Home Med (Loteprednol Etabonate [Alrex]) 5 ml OP TID [facility] Home Med (Multivit,Iron,Min 5/Folic Acid [Strovite Forte Caplet]) 1 each PO DAILY [facility] Home Med (Valsartan [Valsartan]) 320 mg PO DAILY [facility] Insulin Glargine (Lantus) 65 unit SC BID [facility] Last Admin: 03/05/17 09:08 Dose: 65 units Insulin Human Regular (Novolin R) 0 unit SC ACHS [facility] PRN Reason: Protocol Last Admin: 03/05/17 08:16 Dose: Not Given Metformin HCl (Glucophage) 500 mg PO BID [facility] Last Admin: 03/05/17 09:07 Dose: 500 mg Methylprednisolone (Solu-Medrol) 40 mg IVP Q8 [facility] Last Admin: 03/05/17 07:36 Dose: 40 mg Metoprolol Tartrate (Lopressor) 150 mg PO DAILY [facility] Last Admin: 03/05/17 09:07 Dose: 150 mg Rosuvastatin Calcium (Crestor) 5 mg PO HS [facility] Last Admin: 03/04/17 22:19 Dose: 5 mg Sitagliptin Phosphate (Januvia) 50 mg PO DAILY [facility] Last Admin: 03/05/17 09:07 Dose: 50 mg - Labs Labs: 03/05/17 07:10 03/05/17 07:10 PT 10.4 SECONDS (9.7-12.2) 03/04/17 18:19 INR 0.9 03/04/17 18:19 APTT 29 SECONDS (21-34) 03/04/17 18:19
[2017-03-05] MEDS ORDERED: Iodixanol 320 MG/ML 100 ML BOTTLE IV ONE (13:51)
--- NOTE | 2017-03-05 14:27 | CT ---
CTA chest PE protocol Indication: Rule out PE Technique: Contiguous axial images were obtained through the chest with intravenous contrast enhancement. Sagittal and coronal reconstructions were generated and reviewed. This CT exam was performed using 1 or more of the falling dose reduction techniques: Automated exposure control, adjustment of the MAA and/or kV according to patient size, and/or use of iterative reconstruction technique. IV Contrast: 100 mL Visipaque Radiation dose (DLP): 551.06 MGy-cm. Comparison: Chest x-ray performed 03/04/17 Findings: Visualized portions of the inferior thyroid gland appear unremarkable. The mediastinal and hilar vascular structures appear within normal limits. Cardiomegaly. Dense atherosclerotic calcifications of the aorta and branches. No large central or segmental pulmonary embolus evident. Small bilateral pleural effusions. Bilateral dependent consolidations. No pneumothorax. No suspicious pulmonary nodules measuring greater than 5 mm. Small to moderate hiatal hernia. Limited visualized portions of the upper abdomen demonstrates cholecystectomy. Bilateral adrenal gland hypertrophy. Splenic calcification, likely granuloma. Degenerative changes. Impression: No large central or segmental pulmonary embolus identified. Small bilateral pleural effusions. Bilateral dependent consolidations. Small to moderate hiatal hernia. Cholecystectomy. Bilateral adrenal gland hypertrophy. Splenic calcification, likely granuloma.
[2017-03-05] MEDS ORDERED: Sodium Chloride 0.9% 1,000 ML IV SCH (16:15)
[2017-03-05] MEDS: LOTEPREDNOL 0.2% OU SCH (17:38)
[2017-03-05] MEDS ORDERED: Albuterol-Ipratrop 3 mg / 0.5 (3 ml) UD INH PRN (21:32)
[2017-03-06] MEDS ORDERED: Aluminum Hydroxide/Magnesium Hydroxide Susp (30 mL) PO ONE (04:42)
[2017-03-06] MEDS: MethylPREDNISolone 40 mg Vial IVP SCH ×3 (05:54→23:21)
--- NOTE | 2017-03-06 06:09 | CP.PCM.PN ---
Subjective - Date & Time of Evaluation Date of Evaluation: 03/06/17 Time of Evaluation: 06:00 - Subjective Subjective: Resident called on patient for increasing abdominal pain. Patient was admitted for elevated troponin. Her pain was originally described as a dull burning in the epigastric region. She was given protonix and maalox. The pain has continued to increase throughout the night. Patient is sitting up in chair moaning in pain. Patient points to her RUQ when asked to localize her pain. Her daughter is at bedside translating for the resident. Denies any chest pain or increased difficulty breathing. Per nurse, patient took off bi-pap to sit up in her chair because it is more comfortable for her to sit in the chair than to lay down in bed. Her vitals are stable throughout examination. Will order SUSIE, ekg and morphine 2mg IV. Objective - Vital Signs/Intake and Output Vital Signs (last 24 hours): Temp Pulse Resp BP Pulse Ox 97.4 F L 83 20 164/80 H 98 03/05/17 15:24 03/05/17 23:35 03/05/17 15:24 03/05/17 15:24 03/05/17 15:24 - Medications Medications: Current Medications Albuterol/Ipratropium (Duoneb 3 Mg/0.5 Mg (3 Ml) Ud) 3 ml INH RQ4 PRN PRN Reason: Shortness of Breath Allopurinol (Zyloprim) 300 mg PO DAILY [facility] Last Admin: 03/05/17 09:11 Dose: 300 mg Aspirin (Ecotrin) 325 mg PO DAILY [facility] Last Admin: 03/05/17 09:07 Dose: 325 mg Furosemide (Lasix) 20 mg IVP DAILY [facility] Last Admin: 03/05/17 09:07 Dose: 20 mg Gabapentin (Neurontin) 300 mg PO DAILY [facility] Last Admin: 03/05/17 09:07 Dose: 300 mg Glimepiride (Amaryl) 2 mg PO BIDAC [facility] Heparin Sodium (Porcine) (Heparin) 5,000 units SC Q12 [facility] Last Admin: 03/05/17 21:10 Dose: 5,000 units Home Med (Patient's Own Drops) 1 drop OU TID [facility] Last Admin: 03/05/17 17:38 Dose: 1 drop Sodium Chloride (Sodium Chloride 0.9%) 1,000 mls @ 50 mls/hr IV .Q20H [facility] Stop: 03/06/17 12:14 Last Admin: 03/05/17 17:30 Dose: 50 mls/hr Insulin Glargine (Lantus) 65 unit SC BID [facility] Last Admin: 03/05/17 17:28 Dose: 65 units Insulin Human Regular (Novolin R) 0 unit SC ACHS [facility] PRN Reason: Protocol Last Admin: 03/05/17 23:00 Dose: 2 unit Losartan Potassium (Cozaar) 100 mg PO DAILY [facility] Last Admin: 03/05/17 17:40 Dose: 100 mg Metformin HCl (Glucophage) 500 mg PO BID [facility] Last Admin: 03/05/17 09:07 Dose: 500 mg Methylprednisolone (Solu-Medrol) 40 mg IVP Q8 [facility] Last Admin: 03/06/17 05:54 Dose: Not Given Metoclopramide HCl (Reglan) 5 mg PO 0600,1130,1630,2200 [facility] Last Admin: 03/05/17 21:10 Dose: 5 mg Metoprolol Tartrate (Lopressor) 150 mg PO DAILY [facility] Last Admin: 03/05/17 09:07 Dose: 150 mg Morphine Sulfate (Morphine) 2 mg IVP STAT STA Stop: 03/06/17 06:08 Rosuvastatin Calcium (Crestor) 5 mg PO HS [facility] Last Admin: 03/05/17 21:10 Dose: 5 mg Sitagliptin Phosphate (Januvia) 50 mg PO DAILY [facility] Last Admin: 03/05/17 09:07 Dose: 50 mg Vitamin B Complex/Vitamin C (Berocca) 1 tab PO DAILY [facility] - Labs Labs: 03/05/17 07:10 03/05/17 07:10 PT 10.4 SECONDS (9.7-12.2) 03/04/17 18:19 INR 0.9 03/04/17 18:19 APTT 29 SECONDS (21-34) 03/04/17 18:19 - Constitutional Appears: In Acute Distress (moaning, holding abdomen) - Eye Exam Eye Exam: Normal appearance - ENT Exam ENT Exam: Mucous Membranes Moist - Respiratory Exam Respiratory Exam: NORMAL BREATHING PATTERN. absent: Accessory Muscle Use, Respiratory Distress - Cardiovascular Exam Cardiovascular Exam: REGULAR RHYTHM, +S1, +S2 - GI/Abdominal Exam GI & Abdominal Exam: Soft, Tenderness (RUQ). absent: Distended, Firm, Guarding , Rigid, Pulsatile Mass - Neurological Exam Neurological Exam: Alert, Awake - Skin Skin Exam: Dry, Normal Color, Warm
[2017-03-06 07:28] LABS: BASO % 0.2 % (0.0-2.0); HEMATOCRIT 42.8 % (34.0-47.0); LYMPH % 10.1 % (20.0-40.0); MEAN CORPUSCULAR HEMOGLOBIN 29.7 pg (27.0-31.0); MEAN CORPUSCULAR HGB CONC 33.4 g/dL (33.0-37.0); MEAN PLATELET VOLUME 8.2 fL (7.2-11.7); MONO # 0.5 K/uL (0.0-0.8); NRBC % 0.2 % (0.0-2.0); RED CELL DISTRIBUTION WIDTH 13.9 % (11.5-14.5); WHITE BLOOD COUNT 10.3 K/uL (4.8-10.8)
[2017-03-06] MEDS: (Novolin R) Insulin Human Regular 100 units/ml vial SC SCH ×4 (07:30→22:35)
[2017-03-06 08:06] LABS: BILIRUBIN,TOTAL 0.4 mg/dL (0.2-1.3)
[2017-03-06 08:07] LABS: ALB/GLOB RATIO 1.3 (1.0-2.1); TOTAL PROTEIN 5.6 g/dL (6.3-8.3)
[2017-03-06 08:08] LABS: CALCIUM 7.7 mg/dl (8.6-10.4)
[2017-03-06 08:09] VITALS: TEMP 97.6
[2017-03-06] MEDS: Vitamin B Complex/Vitamin C Tab PO SCH (09:54)
[2017-03-06] MEDS: Aspirin 325 mg EC Tablets PO SCH (10:03)
[2017-03-06] MEDS: LOTEPREDNOL 0.2% OU SCH ×3 (10:14→18:10)
[2017-03-06] MEDS: (Lantus) Insulin Glargine, Recombinant SC SCH ×2 (10:17→19:08)
--- NOTE | 2017-03-06 13:47 | CP.PCM.PN ---
Subjective - Date & Time of Evaluation Date of Evaluation: 03/06/17 Time of Evaluation: 13:46 - Subjective Subjective: UPPER ABD. PAIN A/W [place] CT CHEST SHOWED MOD H. HERNIA WILL GET EVAL WITH GI LUNGS/HEART STABLE LABS NOTED Objective - Vital Signs/Intake and Output Vital Signs (last 24 hours): Temp Pulse Resp BP Pulse Ox 97.6 F 82 21 152/72 H 100 03/06/17 08:07 03/06/17 08:07 03/06/17 08:07 03/06/17 10:04 03/06/17 08:07 - Medications Medications: Current Medications Albuterol/Ipratropium (Duoneb 3 Mg/0.5 Mg (3 Ml) Ud) 3 ml INH RQ4 PRN PRN Reason: Shortness of Breath Allopurinol (Zyloprim) 300 mg PO DAILY [facility] Last Admin: 03/06/17 09:54 Dose: 300 mg Aspirin (Ecotrin) 325 mg PO DAILY [facility] Last Admin: 03/06/17 10:03 Dose: 325 mg Furosemide (Lasix) 20 mg IVP DAILY [facility] Last Admin: 03/06/17 10:04 Dose: 20 mg Gabapentin (Neurontin) 300 mg PO DAILY [facility] Last Admin: 03/06/17 10:05 Dose: 300 mg Glimepiride (Amaryl) 2 mg PO BIDAC [facility] Last Admin: 03/06/17 07:30 Dose: 2 mg Heparin Sodium (Porcine) (Heparin) 5,000 units SC Q12 [facility] Last Admin: 03/06/17 09:55 Dose: 5,000 units Home Med (Patient's Own Drops) 1 drop OU TID [facility] Last Admin: 03/06/17 13:32 Dose: 1 drop Insulin Glargine (Lantus) 65 unit SC BID [facility] Last Admin: 03/06/17 10:17 Dose: 65 units Insulin Human Regular (Novolin R) 0 unit SC ACHS [facility] PRN Reason: Protocol Last Admin: 03/06/17 11:30 Dose: 2 unit Losartan Potassium (Cozaar) 100 mg PO DAILY [facility] Last Admin: 03/06/17 09:54 Dose: 100 mg Metformin HCl (Glucophage) 500 mg PO BID [facility] Last Admin: 03/05/17 09:07 Dose: 500 mg Methylprednisolone (Solu-Medrol) 40 mg IVP Q8 [facility] Last Admin: 03/06/17 13:38 Dose: 40 mg Metoclopramide HCl (Reglan) 5 mg PO 0600,1130,1630,2200 [facility] Last Admin: 03/06/17 11:30 Dose: 5 mg Metoprolol Tartrate (Lopressor) 150 mg PO DAILY [facility] Last Admin: 03/06/17 10:04 Dose: 150 mg Rosuvastatin Calcium (Crestor) 5 mg PO HS [facility] Last Admin: 03/05/17 21:10 Dose: 5 mg Sitagliptin Phosphate (Januvia) 50 mg PO DAILY [facility] Last Admin: 03/06/17 10:17 Dose: 50 mg Vitamin B Complex/Vitamin C (Berocca) 1 tab PO DAILY [facility] Last Admin: 03/06/17 09:54 Dose: 1 tab - Labs Labs: 03/06/17 07:19 03/06/17 07:19 PT 10.4 SECONDS (9.7-12.2) 03/04/17 18:19 INR 0.9 03/04/17 18:19 APTT 29 SECONDS (21-34) 03/04/17 18:19
--- NOTE | 2017-03-06 16:19 | PCM.RRT ---
[employer]ECT [employer]PAIR[employer] Nurses Assessment - Situation Date: 03/06/17 Time [employer]ECT REPAIRER [employer] was called: 15:53 [employer]ECT REPAIR[employer] Location:: Med/Surg [employer] Reason for Call: Hypotension [employer] Called By: RN - IV IV Inserted during [employer]ECT REPA[employer]ER [employer]?: Yes - Respiratory [employer] Delivery Method: BiPAP @% - Ventilator Settings FIO2 (% Oxygen): 40 - Diagnostic Test Ordered EKG: Yes Chest X-Ray: Yes - Stat Labs Ordered [employer] Stat Labs Ordered: CBC, BMP, TROPONIN, LACTIC ACID, BLOOD C&S X2, ABG CPR started during DEFECT REPAIRER [employer]?: No - Recommendations 5) [employer]PA[employer] Level of Care Recommendations: Transfer to ICU I.Reason for [employer] REPA[employer] - A) Acute Change in Patient: (Select all that apply): Acute change in SBP below (70) Subjective: House Doctor Note: DEFECT REPAIRER [employer] called for patient for hypotension and shortness of breath. Patient had history of COPD, DM, Diastolic CHF. Patient is being treated fro COPD and CHF exacerbation. Patient was seen overnight by house doctor for abdominal pain. VS on arrival of rapid response team : 70/43, HR 79, Temp 98.5, o2 100% on BIPAP 10 /5/45 FIo2. Accuc check was 125. Troponins done since last night negative X2. CTA done shows No large central or segmental pulmonary embolus identified, Small bilateral pleural effusions, Bilateral dependent consolidations, Small to moderate hiatal hernia. Patient is awake, but lethargic and not answering questions. - Neurological Status (Select all that apply): Responsive, Lethargic - Respiratory Oxygen Delivery Method: BiPAP @% (10/5/40FIo2) - Constitutional Appears: Chronically Ill, Other (lethargic) - Head Head Exam: ATRAUMATIC, NORMAL INSPECTION - Eyes Eye Exam: EOMI, Normal appearance - Respiratory Exam Respiratory Exam: Decreased Breath Sounds Additional comments: +Labored breathing - Cardiovascular Exam Cardiovascular Exam: REGULAR RHYTHM, +S1, +S2 - GI/Abdominal Exam GI & Abdominal Exam: Soft - Neurological Exam Neurological Exam: Awake. absent: Alert, Oriented x3 - Extremities Exam Extremities Exam: Normal Inspection. absent: Pedal Edema Plan - Assessment of Findings&Treatment Plan Patient was ordered for CBC, CMP, ABG shock, Blood and urine Cx, Troponins, CXR , and EKG. Maddox was ordered. ABG shows Lactate 1.7. Evidence of respiratory acidosis CXR shows no active disease. Patient's repeat blood pressure was difficult to obtain with manual cuff. Hospitalist spoke with ICU attending who accepted patient to ICU Bed 14A.
[2017-03-06] MEDS ORDERED: Albumin Human 25% (12.5 gm/50 ml) IV ONE (16:21)
[2017-03-06 16:25] LABS: DRAW SITE LB
--- NOTE | 2017-03-06 16:27 | RAD ---
HISTORY: SOB, rapid COMPARISON: Comparison is made to 03/04/2017 FINDINGS: LUNGS: No active pulmonary disease. PLEURA: No significant pleural effusion identified, no pneumothorax apparent. CARDIOVASCULAR: Normal. OSSEOUS STRUCTURES: No significant abnormalities. VISUALIZED UPPER ABDOMEN: Normal. OTHER FINDINGS: None. IMPRESSION: No active disease.
[2017-03-06 17:23] LABS: EOS % 0.1 % (0.0-4.0)
[2017-03-06] MEDS ORDERED: Albumin Human 5% (12.5 gm/250 ml) IV ONE (17:30)
[2017-03-06 17:36] LABS: POTASSIUM 4.2 mmol/L (3.6-5.2)
[2017-03-06 17:38] LABS: BILIRUBIN,TOTAL 0.5 mg/dL (0.2-1.3)
[2017-03-06 17:39] LABS: CALCIUM 7.4 mg/dl (8.6-10.4); TOTAL PROTEIN 5.2 g/dL (6.3-8.3)
[2017-03-06 17:40] LABS: ALB/GLOB RATIO 1.3 (1.0-2.1); BASO % 0.1 % (0.0-2.0); HEMATOCRIT 42.8 % (34.0-47.0); LYMPH # 0.7 K/uL (1.0-4.3); LYMPH % 12.4 % (20.0-40.0); MEAN CORPUSCULAR HEMOGLOBIN 29.8 pg (27.0-31.0); MEAN CORPUSCULAR HGB CONC 33.5 g/dL (33.0-37.0); MONO # 0.2 K/uL (0.0-0.8); MONO % 3.5 % (0.0-10.0); NRBC % 0.2 % (0.0-2.0); RED CELL DISTRIBUTION WIDTH 13.5 % (11.5-14.5); WHITE BLOOD COUNT 5.7 K/uL (4.8-10.8)
[2017-03-06 17:49] LABS: TROPONIN I 0.116 ng/mL (0.00-0.120)
[2017-03-06] MEDS ORDERED: Dextrose 5%/0.9% NS 1,000 ML IV ONE ×2 (18:11→23:07)
[2017-03-06] MEDS ORDERED: Dextrose 50% SYRINGE Inj (50 ml) IV ONE (18:45)
[2017-03-06] MEDS ORDERED: Glucagon Recombinant 1 mg Inj IM ONE (18:45)
--- NOTE | 2017-03-06 18:51 | CP.PCM.CON ---
<Solo Galeana R - Last Filed: 03/06/17 18:45> History of Present Illness - History of Present Illness History of Present Illness: HPI: Patient is a 76 year old female with PMHx of CHF, COPD, DM, HTN admitted to the hospital on 03/04 for COPD and CHF exacerbation as well as elevated Troponin (0.2020). Today, patient became hypotensive and in respiratory distress ; rapid response was called and patient was admitted to ICU. Patient is currently on BiPAP with oxygen saturation 99-100%. She is currently responsive to verbal stimuli and lethargic. Full ROS not obtained due to her current status. Medical history obtained from patient chart/previous records. PMH: Alzheimer's disease, Arthritis, Ashtma, CHF,COPD, DM, HTN, HLD PSH: Cholecystectomy Allergies: none FH: denies Social Hx: denies alcohol, drug and tobacco use. PMD: Dr. James Review of Systems - Review of Systems Systems not reviewed;Unavailable: Respiratory Distress Past Patient History - Past Medical History & Family History Past Medical History?: Yes - Past Social History Smoking Status: Never Smoked - CARDIAC Hx Congestive Heart Failure: Yes Hx Hypercholesterolemia: Yes Hx Hypertension: Yes - PULMONARY Hx Asthma: Yes - NEUROLOGICAL Hx Alzheimer's Disease: Yes - HEENT Hx HEENT Problems: Yes Hx Cataracts: Yes (bilateral) - RENAL Hx Chronic Kidney Disease: No - ENDOCRINE/METABOLIC Hx Diabetes Mellitus Type 2: Yes - HEMATOLOGICAL/ONCOLOGICAL Hx Blood Disorders: Yes - INTEGUMENTARY Hx Dermatological Problems: No - MUSCULOSKELETAL/RHEUMATOLOGICAL Hx Arthritis: Yes - GASTROINTESTINAL Hx Gastrointestinal Disorders: No - GENITOURINARY/GYNECOLOGICAL Hx Genitourinary Disorders: No - PSYCHIATRIC Hx Substance Use: No - SURGICAL HISTORY Hx Cholecystectomy: Yes - ANESTHESIA Hx Anesthesia: Yes Hx Anesthesia Reactions: No Hx Malignant Hyperthermia: No Meds Allergies/Adverse Reactions: Allergies Allergy/AdvReac Type Severity Reaction Status Date / Time No Known Allergies Allergy Verified 02/28/17 17:13 - Medications Medications: Current Medications Albuterol/Ipratropium (Duoneb 3 Mg/0.5 Mg (3 Ml) Ud) 3 ml INH RQ4 PRN PRN Reason: Shortness of Breath Allopurinol (Zyloprim) 300 mg PO DAILY [facility] Last Admin: 03/06/17 09:54 Dose: 300 mg Aspirin (Ecotrin) 325 mg PO DAILY [facility] Last Admin: 03/06/17 10:03 Dose: 325 mg Dextrose (Dextrose 50% Inj) 50 ml IV ONCE ONE Stop: 03/06/17 18:46 Gabapentin (Neurontin) 300 mg PO DAILY [facility] Last Admin: 03/06/17 10:05 Dose: 300 mg Glucagon (Glucagen Diagnostic Kit) 1 mg IM ONCE ONE Stop: 03/06/17 18:46 Heparin Sodium (Porcine) (Heparin) 5,000 units SC Q12 [facility] Last Admin: 03/06/17 09:55 Dose: 5,000 units Home Med (Patient's Own Drops) 1 drop OU TID [facility] Last Admin: 03/06/17 18:10 Dose: Not Given Dextrose/Sodium Chloride (Dextrose 5%/0.9% Ns 1000 Ml) 1,000 mls @ 50 mls/hr IV .Q20H ONE Stop: 03/07/17 14:10 Insulin Human Regular (Novolin R) 0 unit SC ACHS [facility] PRN Reason: Protocol Last Admin: 03/06/17 18:09 Dose: Not Given Methylprednisolone (Solu-Medrol) 40 mg IVP Q8 [facility] Last Admin: 03/06/17 13:38 Dose: 40 mg Metoclopramide HCl (Reglan) 5 mg PO 0600,1130,1630,2200 [facility] Last Admin: 03/06/17 17:39 Dose: Not Given Rosuvastatin Calcium (Crestor) 5 mg PO HS [facility] Last Admin: 03/05/17 21:10 Dose: 5 mg Vitamin B Complex/Vitamin C (Berocca) 1 tab PO DAILY [facility] Last Admin: 03/06/17 09:54 Dose: 1 tab Physical Exam - Constitutional Appears: In Acute Distress Additional comments: obese body habitus - Head Exam Head Exam: ATRAUMATIC, NORMAL INSPECTION - Respiratory Exam Respiratory Exam: Decreased Breath Sounds, Wheezes - Cardiovascular Exam Cardiovascular Exam: REGULAR RHYTHM, +S1, +S2. absent: Systolic Murmur - GI/Abdominal Exam GI & Abdominal Exam: Normal Bowel Sounds, Soft - Rectal Exam Rectal Exam: Deferred - Neurological Exam Neurological exam: Alert Results - Vital Signs Recent Vital Signs: Last Vital Signs Temp 97.6 F 03/06/17 08:07 Pulse 21 L 03/06/17 10:00 Resp 21 03/06/17 08:07 BP 152/72 H 03/06/17 10:04 Pulse Ox 100 03/06/17 08:07 - Labs Result Diagrams: 03/06/17 17:15 03/06/17 17:15 Labs: Laboratory Results - last 24 hr 03/05/17 03/06/17 03/06/17 21:22 01:59 07:02 WBC RBC Hgb Hct MCV MCH MCHC RDW Plt Count MPV Neut % (Auto) Lymph % (Auto) Bailey % (Auto) Eos % (Auto) Baso % (Auto) Neut # Lymph # Bailey # Eos # Baso # Puncture Site pCO2 pO2 HCO3 ABG pH ABG Total CO2 ABG O2 Saturation ABG Base Excess Telly Test ABG Potassium A-a O2 Difference Respiratory Index Glucose Lactate FiO2 Inspiratory BiPAP Expiratory BiPAP Crit Value Called To Crit Value Called By Crit Value Read Back Blood Gas Notified Time Sodium Potassium Chloride Carbon Dioxide Anion Gap BUN Creatinine Est GFR ( Amer) Est GFR (Non-Af Amer) POC Glucose (mg/dL) 300 H 216 H 154 H Random Glucose Calcium Total Bilirubin AST ALT Alkaline Phosphatase Total Creatine Kinase CK-MB (Mass) Troponin I Troponin I, Quant NT-Pro-B Natriuret Pep Total Protein Albumin Globulin Albumin/Globulin Ratio Arterial Blood Potassium 03/06/17 03/06/17 03/06/17 07:19 07:19 07:19 WBC 10.3 RBC 4.81 Hgb 14.3 Hct 42.8 MCV 89.0 MCH 29.7 MCHC 33.4 RDW 13.9 Plt Count 437 H D MPV 8.2 Neut % (Auto) 84.7 H Lymph % (Auto) 10.1 L Bailey % (Auto) 5.0 Eos % (Auto) 0.0 Baso % (Auto) 0.2 Neut # 8.7 H Lymph # 1.0 Bailey # 0.5 Eos # 0.0 Baso # 0.0 Puncture Site pCO2 pO2 HCO3 ABG pH ABG Total CO2 ABG O2 Saturation ABG Base Excess Telly Test ABG Potassium A-a O2 Difference Respiratory Index Glucose Lactate FiO2 Inspiratory BiPAP Expiratory BiPAP Crit Value Called To Crit Value Called By Crit Value Read Back Blood Gas Notified Time Sodium 131 L Potassium 4.0 Chloride 91 L Carbon Dioxide 28 Anion Gap 16 BUN 34 H Creatinine 1.3 H Est GFR ( Amer) 48 Est GFR (Non-Af Amer) 40 POC Glucose (mg/dL) Random Glucose 154 H Calcium 7.7 L Total Bilirubin 0.4 AST 20 ALT 38 Alkaline Phosphatase 55 Total Creatine Kinase 68 CK-MB (Mass) 2.79 Troponin I Troponin I, Quant 0.0850 NT-Pro-B Natriuret Pep 7150 H Total Protein 5.6 L Albumin 3.2 L Globulin 2.5 Albumin/Globulin Ratio 1.3 Arterial Blood Potassium 03/06/17 03/06/17 03/06/17 11:13 11:49 16:01 WBC RBC Hgb Hct MCV MCH MCHC RDW Plt Count MPV Neut % (Auto) Lymph % (Auto) Bailey % (Auto) Eos % (Auto) Baso % (Auto) Neut # Lymph # Bailey # Eos # Baso # Puncture Site pCO2 pO2 HCO3 ABG pH ABG Total CO2 ABG O2 Saturation ABG Base Excess Telly Test ABG Potassium A-a O2 Difference Respiratory Index Glucose Lactate FiO2 Inspiratory BiPAP Expiratory BiPAP Crit Value Called To Crit Value Called By Crit Value Read Back Blood Gas Notified Time Sodium Potassium Chloride Carbon Dioxide Anion Gap BUN Creatinine Est GFR ( Amer) Est GFR (Non-Af Amer) POC Glucose (mg/dL) 176 H 125 H Random Glucose Calcium Total Bilirubin AST ALT Alkaline Phosphatase Total Creatine Kinase 50 CK-MB (Mass) 1.92 Troponin I Troponin I, Quant 0.0950 NT-Pro-B Natriuret Pep Total Protein Albumin Globulin Albumin/Globulin Ratio Arterial Blood Potassium 03/06/17 03/06/17 03/06/17 16:15 17:15 17:15 WBC 5.7 RBC 4.81 Hgb 14.3 Hct 42.8 MCV 89.0 MCH 29.8 MCHC 33.5 RDW 13.5 Plt Count 454 H MPV 8.0 Neut % (Auto) 83.9 H Lymph % (Auto) 12.4 L Bailey % (Auto) 3.5 Eos % (Auto) 0.1 Baso % (Auto) 0.1 Neut # 4.8 Lymph # 0.7 L Bailey # 0.2 Eos # 0.0 Baso # 0.0 Puncture Site Lb pCO2 56 H pO2 38 L* HCO3 23.5 ABG pH 7.29 L ABG Total CO2 28.6 H ABG O2 Saturation 77.7 L ABG Base Excess -0.7 Telly Test Na ABG Potassium 3.8 A-a O2 Difference 177.0 Respiratory Index 4.7 Glucose 104 Lactate 1.7 FiO2 40.0 Inspiratory BiPAP 10 Expiratory BiPAP 5 Crit Value Called To Dr quin perez Crit Value Called By Ta chacon organizational consultant Crit Value Read Back Y Blood Gas Notified Time 1625 Sodium 130.0 L 128 L Potassium 4.2 Chloride 97.0 L 94 L Carbon Dioxide 24 Anion Gap 14 BUN 42 H Creatinine 2.0 H Est GFR ( Amer) 29 Est GFR (Non-Af Amer) 24 POC Glucose (mg/dL) Random Glucose 78 Calcium 7.4 L Total Bilirubin 0.5 AST 29 ALT 37 Alkaline Phosphatase 43 Total Creatine Kinase CK-MB (Mass) Troponin I 0.1160 Troponin I, Quant NT-Pro-B Natriuret Pep Total Protein 5.2 L Albumin 2.9 L Globulin 2.3 Albumin/Globulin Ratio 1.3 Arterial Blood Potassium 3.8 03/06/17 03/06/17 17:52 18:36 WBC RBC Hgb Hct MCV MCH MCHC RDW Plt Count MPV Neut % (Auto) Lymph % (Auto) Bailey % (Auto) Eos % (Auto) Baso % (Auto) Neut # Lymph # Bailey # Eos # Baso # Puncture Site pCO2 pO2 HCO3 ABG pH ABG Total CO2 ABG O2 Saturation ABG Base Excess Telly Test ABG Potassium A-a O2 Difference Respiratory Index Glucose Lactate FiO2 Inspiratory BiPAP Expiratory BiPAP Crit Value Called To Crit Value Called By Crit Value Read Back Blood Gas Notified Time Sodium Potassium Chloride Carbon Dioxide Anion Gap BUN Creatinine Est GFR ( Amer) Est GFR (Non-Af Amer) POC Glucose (mg/dL) 60 L 41 L Random Glucose Calcium Total Bilirubin AST ALT Alkaline Phosphatase Total Creatine Kinase CK-MB (Mass) Troponin I Troponin I, Quant NT-Pro-B Natriuret Pep Total Protein Albumin Globulin Albumin/Globulin Ratio Arterial Blood Potassium Assessment & Plan - Assessment and Plan (Free Text) Assessment: 76 year old female with PMHx CHF, COPD, DM, HTN presenting after rapid response for hypotension and respiratory distress most likely secondary to dehydration. Neuro: no acute issues CV: hypotension most likely due to dehydration, CHF exacerbation, h/o HTN - 03/01 EKG: Sinus rhythem with sinus arrhythmia with 1st degress AV block. Left axic deviation. LBBB. - 03/03 Echo: EF 60%. LV function is overall normal. Mild hypokinesis of the apical suptum. Markedly calcified aortic valve with reduced opening. Aortic Valve area appears less and aortic stenosis more severe. - 03/06 Troponin negative - f/u new EKG - started Albumin drip - ASA 325 mg PO daily - holding Losartan 100 mg PO daily - holding Lopressor 150 mg PO daily - Crestor 5 mg PO HS Pulm: h/o COPD - on BiPAP - 03/[address] angio: no pulmonary embolism, no pneumothorax. Small bilateral pleural effusions, bilateral dependent consolidations. Small-moderate hiatal hernia. Cholecystectomy. Bilateral adrenal gland hypertrophy. Splenic calcification, likely granuloma. - f/u ABG - Duoneb 3 ml RQ4 PRN - Solumedrol 40 mg IV Q8 Endo: h/o DM, Diabetic Neuropathy - hypogylcemia today on ICU admission, will manage with ISS - D5NS @ 50 cc/hr - Neurontin 300 mg PO daily GI: abdominal pain - GI consulted - Heart Healthy Diet Ophtho: ocular inflammation - Continue home meds: Loteprednol drops OU TID ID: - No evidence of sepsis at this time - f/u blood culture, urine c&s, MRSA screen Prophylaxis: - DVT: Heparin 5,000U SC Q12 - Reglan 40 mg IV Q8 prn - Allopurinol 300 mg PO daily - Vitamin B complex daily - PT/OT <Kushal Guzman - Last Filed: 03/06/17 18:58> Meds - Medications Medications: Current Medications Albuterol/Ipratropium (Duoneb 3 Mg/0.5 Mg (3 Ml) Ud) 3 ml INH RQ4 PRN PRN Reason: Shortness of Breath Allopurinol (Zyloprim) 300 mg PO DAILY [facility] Last Admin: 03/06/17 09:54 Dose: 300 mg Aspirin (Ecotrin) 325 mg PO DAILY [facility] Last Admin: 03/06/17 10:03 Dose: 325 mg Gabapentin (Neurontin) 300 mg PO DAILY [facility] Last Admin: 03/06/17 10:05 Dose: 300 mg Heparin Sodium (Porcine) (Heparin) 5,000 units SC Q12 [facility] Last Admin: 03/06/17 09:55 Dose: 5,000 units Home Med (Patient's Own Drops) 1 drop OU TID [facility] Last Admin: 03/06/17 18:10 Dose: Not Given Dextrose/Sodium Chloride (Dextrose 5%/0.9% Ns 1000 Ml) 1,000 mls @ 50 mls/hr IV .Q20H ONE Stop: 03/07/17 14:10 Insulin Human Regular (Novolin R) 0 unit SC ACHS [facility] PRN Reason: Protocol Last Admin: 03/06/17 18:09 Dose: Not Given Methylprednisolone (Solu-Medrol) 40 mg IVP Q8 [facility] Last Admin: 03/06/17 13:38 Dose: 40 mg Metoclopramide HCl (Reglan) 5 mg PO 0600,1130,1630,2200 [facility] Last Admin: 03/06/17 17:39 Dose: Not Given Rosuvastatin Calcium (Crestor) 5 mg PO HS [facility] Last Admin: 03/05/17 21:10 Dose: 5 mg Vitamin B Complex/Vitamin C (Berocca) 1 tab PO DAILY [facility] Last Admin: 03/06/17 09:54 Dose: 1 tab Results - Vital Signs Recent Vital Signs: Last Vital Signs Temp 97.6 F 03/06/17 08:07 Pulse 21 L 03/06/17 10:00 Resp 21 03/06/17 08:07 BP 152/72 H 03/06/17 10:04 Pulse Ox 100 03/06/17 08:07 - Labs Result Diagrams: 03/06/17 17:15 03/06/17 17:15 Labs: Laboratory Results - last 24 hr 03/05/17 03/06/17 03/06/17 21:22 01:59 07:02 WBC RBC Hgb Hct MCV MCH MCHC RDW Plt Count MPV Neut % (Auto) Lymph % (Auto) Bailey % (Auto) Eos % (Auto) Baso % (Auto) Neut # Lymph # Bailey # Eos # Baso # Puncture Site pCO2 pO2 HCO3 ABG pH ABG Total CO2 ABG O2 Saturation ABG Base Excess Telly Test ABG Potassium A-a O2 Difference Respiratory Index Glucose Lactate FiO2 Inspiratory BiPAP Expiratory BiPAP Crit Value Called To Crit Value Called By Crit Value Read Back Blood Gas Notified Time Sodium Potassium Chloride Carbon Dioxide Anion Gap BUN Creatinine Est GFR ( Amer) Est GFR (Non-Af Amer) POC Glucose (mg/dL) 300 H 216 H 154 H Random Glucose Calcium Total Bilirubin AST ALT Alkaline Phosphatase Total Creatine Kinase CK-MB (Mass) Troponin I Troponin I, Quant NT-Pro-B Natriuret Pep Total Protein Albumin Globulin Albumin/Globulin Ratio Arterial Blood Potassium 03/06/17 03/06/17 03/06/17 07:19 07:19 07:19 WBC 10.3 RBC 4.81 Hgb 14.3 Hct 42.8 MCV 89.0 MCH 29.7 MCHC 33.4 RDW 13.9 Plt Count 437 H D MPV 8.2 Neut % (Auto) 84.7 H Lymph % (Auto) 10.1 L Bailey % (Auto) 5.0 Eos % (Auto) 0.0 Baso % (Auto) 0.2 Neut # 8.7 H Lymph # 1.0 Bailey # 0.5 Eos # 0.0 Baso # 0.0 Puncture Site pCO2 pO2 HCO3 ABG pH ABG Total CO2 ABG O2 Saturation ABG Base Excess Telly Test ABG Potassium A-a O2 Difference Respiratory Index Glucose Lactate FiO2 Inspiratory BiPAP Expiratory BiPAP Crit Value Called To Crit Value Called By Crit Value Read Back Blood Gas Notified Time Sodium 131 L Potassium 4.0 Chloride 91 L Carbon Dioxide 28 Anion Gap 16 BUN 34 H Creatinine 1.3 H Est GFR ( Amer) 48 Est GFR (Non-Af Amer) 40 POC Glucose (mg/dL) Random Glucose 154 H Calcium 7.7 L Total Bilirubin 0.4 AST 20 ALT 38 Alkaline Phosphatase 55 Total Creatine Kinase 68 CK-MB (Mass) 2.79 Troponin I Troponin I, Quant 0.0850 NT-Pro-B Natriuret Pep 7150 H Total Protein 5.6 L Albumin 3.2 L Globulin 2.5 Albumin/Globulin Ratio 1.3 Arterial Blood Potassium 03/06/17 03/06/17 03/06/17 11:13 11:49 16:01 WBC RBC Hgb Hct MCV MCH MCHC RDW Plt Count MPV Neut % (Auto) Lymph % (Auto) Bailey % (Auto) Eos % (Auto) Baso % (Auto) Neut # Lymph # Bailey # Eos # Baso # Puncture Site pCO2 pO2 HCO3 ABG pH ABG Total CO2 ABG O2 Saturation ABG Base Excess Telly Test ABG Potassium A-a O2 Difference Respiratory Index Glucose Lactate FiO2 Inspiratory BiPAP Expiratory BiPAP Crit Value Called To Crit Value Called By Crit Value Read Back Blood Gas Notified Time Sodium Potassium Chloride Carbon Dioxide Anion Gap BUN Creatinine Est GFR ( Amer) Est GFR (Non-Af Amer) POC Glucose (mg/dL) 176 H 125 H Random Glucose Calcium Total Bilirubin AST ALT Alkaline Phosphatase Total Creatine Kinase 50 CK-MB (Mass) 1.92 Troponin I Troponin I, Quant 0.0950 NT-Pro-B Natriuret Pep Total Protein Albumin Globulin Albumin/Globulin Ratio Arterial Blood Potassium 03/06/17 03/06/17 03/06/17 16:15 17:15 17:15 WBC 5.7 RBC 4.81 Hgb 14.3 Hct 42.8 MCV 89.0 MCH 29.8 MCHC 33.5 RDW 13.5 Plt Count 454 H MPV 8.0 Neut % (Auto) 83.9 H Lymph % (Auto) 12.4 L Bailey % (Auto) 3.5 Eos % (Auto) 0.1 Baso % (Auto) 0.1 Neut # 4.8 Lymph # 0.7 L Bailey # 0.2 Eos # 0.0 Baso # 0.0 Puncture Site Lb pCO2 56 H pO2 38 L* HCO3 23.5 ABG pH 7.29 L ABG Total CO2 28.6 H ABG O2 Saturation 77.7 L ABG Base Excess -0.7 Telly Test Na ABG Potassium 3.8 A-a O2 Difference 177.0 Respiratory Index 4.7 Glucose 104 Lactate 1.7 FiO2 40.0 Inspiratory BiPAP 10 Expiratory BiPAP 5 Crit Value Called To Dr quin perez Crit Value Called By Ta chacon organizational consultant Crit Value Read Back Y Blood Gas Notified Time 1625 Sodium 130.0 L 128 L Potassium 4.2 Chloride 97.0 L 94 L Carbon Dioxide 24 Anion Gap 14 BUN 42 H Creatinine 2.0 H Est GFR ( Amer) 29 Est GFR (Non-Af Amer) 24 POC Glucose (mg/dL) Random Glucose 78 Calcium 7.4 L Total Bilirubin 0.5 AST 29 ALT 37 Alkaline Phosphatase 43 Total Creatine Kinase CK-MB (Mass) Troponin I 0.1160 Troponin I, Quant NT-Pro-B Natriuret Pep Total Protein 5.2 L Albumin 2.9 L Globulin 2.3 Albumin/Globulin Ratio 1.3 Arterial Blood Potassium 3.8 03/06/17 03/06/17 17:52 18:36 WBC RBC Hgb Hct MCV MCH MCHC RDW Plt Count MPV Neut % (Auto) Lymph % (Auto) Bailey % (Auto) Eos % (Auto) Baso % (Auto) Neut # Lymph # Bailey # Eos # Baso # Puncture Site pCO2 pO2 HCO3 ABG pH ABG Total CO2 ABG O2 Saturation ABG Base Excess Telly Test ABG Potassium A-a O2 Difference Respiratory Index Glucose Lactate FiO2 Inspiratory BiPAP Expiratory BiPAP Crit Value Called To Crit Value Called By Crit Value Read Back Blood Gas Notified Time Sodium Potassium Chloride Carbon Dioxide Anion Gap BUN Creatinine Est GFR ( Amer) Est GFR (Non-Af Amer) POC Glucose (mg/dL) 60 L 41 L Random Glucose Calcium Total Bilirubin AST ALT Alkaline Phosphatase Total Creatine Kinase CK-MB (Mass) Troponin I Troponin I, Quant NT-Pro-B Natriuret Pep Total Protein Albumin Globulin Albumin/Globulin Ratio Arterial Blood Potassium Attending/Attestation - Attestation I have personally seen and examined this patient.: Yes I have fully participated in the care of the patient.: Yes I have reviewed all pertinent clinical information: Yes Notes (Text): 03/06/17 18:54 I have seen and examined the patient. Medical records, lab studies, and imaging were reviewed by me and a management plan was formulated on multidisciplinary rounds with resident Dr. Galeana. I agree with their above documented assessment and plan. Patient went into acute respiratory failure with hypoxia and hypercapnia, started on BIPAP. Patient was dehydrated with hemoconcentration and rising BUN/ Cr, possible overdiuresis for previous pulmonary edema from heart failure. Started on albumin drip@50 with low rate fluids, D5NS@50. Hypoglycemia from high dose insulin regimen, now holding, giving D50 push with glucagon IM. Critical Care Time 35 minutes. Multi-disciplinary rounds were performed with house staff, nursing, speech therapy, respiratory therapy, pharmacy and nutrition with integrated input from the primary team/attending and other consulting services. The documented time is cumulative and includes review of patient data/exams/labs/chart review and examination of the patient on rounds and throughout the day; time is exclusive of any procedures or teaching time. 03/06/17 18:56
[2017-03-06 19:13] LABS: ARTERIAL BLOOD GAS MODE BiPAP; ARTERIAL BLOOD HGB O2 SAT 96.1 % (95.0-98.0); CARBOXYHEMOGLOBIN 1.6 % (0.5-1.5); DRAW SITE RBA; HHB 1.1 % (0.0-5.0); METHEMOGLOBIN 1.2 % (0.0-3.0)
[2017-03-06 20:15] LABS: ABG ALLEN TEST POS; ARTERIAL BLOOD GAS MODE BiPAP; ARTERIAL BLOOD HGB O2 SAT 96.4 % (95.0-98.0); CARBOXYHEMOGLOBIN 1.9 % (0.5-1.5); DRAW SITE RA; HHB 0.5 % (0.0-5.0); METHEMOGLOBIN 1.3 % (0.0-3.0)
[2017-03-06] MEDS ORDERED: Etomidate 20 mg/10ml Inj IV ONE (20:36)
[2017-03-06] MEDS ORDERED: ePHEDrine 50 mg/ml Inj ONE (20:36)
[2017-03-06] MEDS ORDERED: Succinylcholine Chloride 20 mg/ml Syr (5 ml) IV ONE (20:36)
[2017-03-06] MEDS ORDERED: Propofol 10 mg/ml Inj (20 ML) ONE (20:36)
[2017-03-06] MEDS ORDERED: Rocuronium 10 mg/ml (5 ml) ONE (20:37)
[2017-03-06] MEDS ORDERED: Propofol 10 mg/ml Inj (100 ml) IV SCH (20:45)
[2017-03-06] MEDS ORDERED: Propofol 10 mg/ml 1,000 MG/100 ML VIAL IV PRN (20:57)
--- NOTE | 2017-03-06 21:16 | PCM.ANES ---
Anesthesia Emergent Intubation - Diagnosis Working Diagnosis:: hypercapnic respiratory failure - Intubation Attempts Previous Number of Intubation Attempts:: 1 - Pre-Intubation Vital Signs Oxygen Delivery Method: BiPAP Level Of Consciousness: Lethargic Intubation Meds Given: Etomidate (10 mg etomidate, 100 mg rocuronium) - Airway Management Rapid Sequence: Yes Cricoid Pressure: Yes - Method of Intubation Intubation Method: Oral ETT ETT Size: 7.5 Easy: Yes Atramatic: Yes - Intubation Devices Sudha Blade Size Used: 3 - Placement Confirmation Breath Sounds Present & Equal Bilaterally: Yes Positive EtCO2: Yes Recommendations: Chest X Ray, ABG
[2017-03-06] MEDS ORDERED: DOPamine 400mg/250ml D5W 400 MG/250 ML BAG IV PRN (21:23)
[2017-03-06 22:35] LABS: ABG ALLEN TEST POS; ARTERIAL BLOOD GAS MODE A/C; ARTERIAL BLOOD HGB O2 SAT 91.5 % (95.0-98.0); ATERIAL BLOOD GAS PEEP 5; CARBOXYHEMOGLOBIN 1.9 % (0.5-1.5); DRAW SITE RRA; HHB 5.6 % (0.0-5.0)
[2017-03-07] MEDS ORDERED: Piperacill/Tazo 2.25gm in Dex 2.25 GM/50 ML BAG IVPB SCH ×2 (00:15→07:00)
[2017-03-07] MEDS ORDERED: Dextrose 50% SYRINGE Inj (50 ml) ONE (00:17)
[2017-03-07] MEDS ORDERED: Dextrose 50% SYRINGE Inj (50 ml) IV STA (00:23)
[2017-03-07] MEDS: (Novolin R) Insulin Human Regular 100 units/ml vial SC SCH ×3 (00:30→10:07)
--- NOTE | 2017-03-07 00:41 | PCM.PROC ---
Procedures Attestation:: I certify that I have explained the specified Operation(s) or Procedure(s), risks, benefits and reasonable alternatives to the Patient and/or other person responsible. The opportunity was given to ask questions and all questions answered - Central Line Placement Right Femoral Aseptic technique was employed throughout the procedure: Full sterile barriers ( mask, hair cover, sterile gown, sterile gloves), Full body sterile drape, Chloraprep Antiseptic: 2 minute prep for Femoral CVP Time Out Performed: Yes Pt. Placed on Pulse Ox Monitor: Yes Central Line Prep: Povidone-Iodine 1% Local Anesthesia Used: Lidocaine 1% Ultrasound Used for Placement: No Central Line Lumen Inserted: triple Central Line Length: 20 cm Post Procedure: Sutured in Place, Good Blood Return, All Ports Aspirated, Flushed, Capped, Sterile Dressing Applied Secured by: Suture Post procedure dressing: Chlorhexidine disc (Biopatch) Post Procedure X-Ray: No
[2017-03-07 00:59] LABS: BASO % 0.1 % (0.0-2.0); EOS % 0.1 % (0.0-4.0); HEMATOCRIT 40.4 % (34.0-47.0); LYMPH # 0.4 K/uL (1.0-4.3); LYMPH % 8.7 % (20.0-40.0); MEAN CELL VOLUME 89.5 fL (81.0-99.0); MEAN CORPUSCULAR HEMOGLOBIN 29.6 pg (27.0-31.0); MEAN CORPUSCULAR HGB CONC 33.1 g/dL (33.0-37.0); MEAN PLATELET VOLUME 7.8 fL (7.2-11.7); MONO # 0.2 K/uL (0.0-0.8); MONO % 3.2 % (0.0-10.0); NRBC % 0.3 % (0.0-2.0); PLATELET COUNT 355 K/uL (130-400); RED CELL DISTRIBUTION WIDTH 14.3 % (11.5-14.5); WHITE BLOOD COUNT 5.1 K/uL (4.8-10.8)
[2017-03-07 01:07] LABS: POTASSIUM 4.1 mmol/L (3.6-5.2)
[2017-03-07 01:10] LABS: ALB/GLOB RATIO 1.2 (1.0-2.1); BILIRUBIN,TOTAL 0.5 mg/dL (0.2-1.3); CALCIUM 6.7 mg/dl (8.6-10.4); PHOSPHOROUS 3.4 mg/dL (2.5-4.5); TOTAL PROTEIN 4.6 g/dL (6.3-8.3)
[2017-03-07 01:11] LABS: MAGNESIUM 2.5 mg/dL (1.6-2.3)
[2017-03-07 02:12] LABS: METAMYELOCYTE 5 % (0-0); MYELOCYTE 4 % (0-0); NEUTROPHIL 23 % (50-75); NUCLEATED RED BLOOD CELL 1 % (0-0); REACTIVE LYMPHOCYTES 10 % (0-0); TOTAL CELLS COUNTED 100
--- NOTE | 2017-03-07 04:37 | CT ---
EXAM: CT Head Without Intravenous Contrast EXAM DATE/TIME: 03/06/2017 11:44 PM CLINICAL HISTORY: 76 years old, female; Pain; Headache; Additional info: Not responding and hypoxic TECHNIQUE: Axial computed tomography images of the head/brain without intravenous contrast. All CT scans at this facility use one or more dose reduction techniques, viz.: automated exposure control; ma/kV adjustment per patient size (including targeted exams where dose is matched to indication; i.e. head); or iterative reconstruction technique. COMPARISON: No relevant prior studies available. 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 Left nasal piercing. There is atrophy. There is chronic small vessel ischemic disease. There is no hemorrhage or edema. Mild mucosal thickening right frontal and right sphenoid sinuses. The osseous structures are normal. IMPRESSION: No acute findings.
--- NOTE | 2017-03-07 05:19 | CT ---
EXAM: CT Chest and abdomen Without Intravenous Contrast EXAM DATE/TIME: 03/06/2017 11:44 PM CLINICAL HISTORY: 76 years old, female; Pain; Chest pain; Patient HX: 9; Additional info: Not responding and hypoxic TECHNIQUE: Axial computed tomography images of the chest and abdomen without intravenous contrast. All CT scans at this facility use one or more dose reduction techniques, viz.: automated exposure control; ma/kV adjustment per patient size (including targeted exams where dose is matched to indication; i.e. head); or iterative reconstruction technique. Coronal and sagittal reformatted images were created and reviewed. COMPARISON: No relevant prior studies available. FINDINGS: Endotracheal tube. No aortic aneurysm. Small bilateral pleural effusions greater on the right. There is bibasilar consolidation greater on the right. There is consolidation in the right upper lung running along the major fissure. Cholecystectomy clips are present. There is free fluid in the abdomen. Splenic calcification. The liver and pancreas appear grossly normal. There is enhancement of the renal parenchyma bilaterally, an abnormal finding given the patient did not receive contrast. It suggests retention of contrast from prior study, the most recent of which is 2 days ago per timeline. Recommend correlation with renal function tests. Bilateral adrenal gland thickening. Pneumoperitoneum. Assuming the patient did not have recent surgery, findings suggest bowel perforation. CT abdomen and pelvis can be performed for further evaluation. Possible gastric wall thickening however the lack of both oral and intravenous contrast is limiting. IMPRESSION: Small bilateral pleural effusions and associated consolidation. Retention of contrast by renal parenchyma as discussed above. Pneumoperitoneum. Assuming no recent surgery, findings suggest bowel perforation. CT abdomen and pelvis recommended if indicated.
[2017-03-07 05:55] LABS: ABG MECHANICAL RATE 18; ARTERIAL BLOOD GAS MODE PRVC; ARTERIAL BLOOD HGB O2 SAT 93.6 % (95.0-98.0); ATERIAL BLOOD GAS PEEP 5; DRAW SITE RB; HHB 2.7 % (0.0-5.0); METHEMOGLOBIN 1.8 % (0.0-3.0)
[2017-03-07] MEDS ORDERED: Aztreonam 1 GM in Sodium Chloride 0.9% 100 ML IVPB ONE (05:55)
[2017-03-07] MEDS ORDERED: Piperacillin/Tazobact 2.25 gm Inj IVPB SCH (06:00)
--- NOTE | 2017-03-07 06:40 | CP.CCUPN ---
CCU Subjective - Physician Review Events Since Last Encounter (Free Text): 03/07/17 06:38 patient intubated yesterday for respiratory distress Hypotensive requiring low dose dopamine UnresponsiveCT head and chest done.CT chest shows infiltrate and free air in the abdomen Discussed with radiologist.CT abdomen requested ID and surgical consults requested CCU Objective - Vital Signs / Intake & Output Vital Signs (Last 4 hours): Vital Signs Pulse Resp BP Pulse Ox 03/07/17 06:00 90 18 98 03/07/17 05:49 90 19 104/65 96 03/07/17 05:18 90 18 113/67 99 03/07/17 05:00 91 H 18 98 03/07/17 04:48 90 18 106/52 L 03/07/17 04:19 93 H 18 130/55 L 100 03/07/17 04:12 95 H 18 126/51 L 96 03/07/17 04:08 92 H 19 71/32 L 98 03/07/17 04:02 89 14 53/28 L 95 03/07/17 04:00 97 H 97 03/07/17 03:18 79 25 H 110/42 L 93 L 03/07/17 03:00 84 17 98 03/07/17 02:48 85 18 122/86 99 Intake and Output (Last 8hrs): Intake & Output 03/06/17 03/06/17 03/07/17 14:59 22:59 06:59 Intake Total 375 418.4 Output Total 50 0 Balance 325 418.4 Weight 200 lb 13.76 oz 212 lb 1.355 oz Intake: Intake, IV Amount 300 418.4 Left Proximal Port 300 Forearm Right Femoral 51.3 Right Forearm 17.1 Right Proximal Port 350 Femoral Oral 0 Albumin 75 Output: Urine 50 Urine, Voided 50 Stool 0 0 Emesis 0 0 - Physical Exam Narrative Physical Exam (Free Text): 03/07/17 06:40 Orally intubated Physical Exam Limitations: Positive for: Altered Mental Status Head: Positive for: Atraumatic, Normocephalic Pupils: Positive for: Sluggish Conjunctiva: Positive for: Normal Mouth: Positive for: Dry Pharnyx: Positive for: Other (intubated) Nose (External): Positive for: Atraumatic Nose (Internal): Positive for: No Active Bleeding Respiratory/Chest: Positive for: Clear to Auscultation (dexcreased airentry in bases) Cardiovascular: Positive for: Regular Rate and Rhythm Abdomen: Positive for: Other (hyperactive bowel sounds). Negative for: Distention - Medications Active Medications: Active Medications Generic Name Dose Route Start Last Admin Trade Name Freq PRN Reason Stop Dose Admin Albuterol/Ipratropium 3 ml 03/05/17 21:32 Duoneb 3 Mg/0.5 Mg (3 Ml) Ud INH RQ4 PRN Shortness of Breath Allopurinol 300 mg 03/05/17 10:00 03/06/17 09:54 Zyloprim PO 300 mg DAILY CARLOS Administration Aspirin 325 mg 03/05/17 10:00 03/06/17 10:03 Ecotrin PO 325 mg DAILY CARLOS Administration Gabapentin 300 mg 03/05/17 10:00 03/06/17 10:05 Neurontin PO 300 mg DAILY CARLOS Administration Heparin Sodium (Porcine) 5,000 units 03/05/17 10:00 03/06/17 23:22 Heparin SC 5,000 units Q12 CARLOS Administration Home Med 1 drop 03/05/17 18:00 03/06/17 18:10 Patient's Own Drops OU Not Given TID CARLOS Propofol 1,000 mg in 100 mls @ 2.733 mls/hr 03/06/17 20:57 Diprivan IV .Q24H PRN TITRATE PER MD ORDER Protocol 5 MCG/KG/MIN Dopamine HCl/Dextrose 400 mg in 250 mls @ 17.083 mls/hr 03/06/17 21:23 Dopamine 400mg/250ml D5w IV .[id number] PRN TITRATE PER MD ORDER Protocol 5 MCG/KG/MIN Dextrose/Sodium Chloride 1,000 mls @ 50 mls/hr 03/06/17 23:07 Dextrose 5%/0.9% Ns 1000 Ml IV 03/07/17 19:06 .Q20H ONE Metronidazole 500 mg in 100 mls @ 100 mls/hr 03/07/17 07:00 Flagyl IVPB Q12H CARLOS Piperacillin Sod/Tazobactam Sod 2.25 gm in 50 mls @ 100 mls/hr 03/07/17 07:00 Zosyn 2.25 Gm Iv Premix IVPB Q8 CARLOS Insulin Human Regular 0 unit 03/07/17 00:00 03/07/17 04:00 Novolin R SC Not Given Q4 CARLOS Protocol Methylprednisolone 40 mg 03/05/17 07:15 03/06/17 23:21 Solu-Medrol IVP 40 mg Q8 CARLOS Administration Metoclopramide HCl 5 mg 03/05/17 16:30 03/06/17 22:32 Reglan PO Not Given 0600,1130,1630,2200 CARLOS Rosuvastatin Calcium 5 mg 03/05/17 22:00 03/06/17 22:28 Crestor PO Not Given HS CARLOS Vitamin B Complex/Vitamin C 1 tab 03/06/17 10:00 03/06/17 09:54 Berocca PO 1 tab DAILY CARLOS Administration - Patient Studies Lab Studies: Lab Studies 03/07/17 03/07/17 03/07/17 Range/Units 06:26 05:19 04:08 WBC (4.8-10.8) K/uL RBC (3.80-5.20) Mil/uL Hgb (11.0-16.0) g/dL Hct (34.0-47.0) % MCV (81.0-99.0) fL MCH (27.0-31.0) pg MCHC (33.0-37.0) g/dL RDW (11.5-14.5) % Plt Count (130-400) K/uL MPV (7.2-11.7) fL Neut % (Auto) (50.0-75.0) % Lymph % (Auto) (20.0-40.0) % Reynolds % (Auto) (0.0-10.0) % Eos % (Auto) (0.0-4.0) % Baso % (Auto) (0.0-2.0) % Neut # (1.8-7.0) K/uL Lymph # (1.0-4.3) K/uL Reynolds # (0.0-0.8) K/uL Eos # (0.0-0.7) K/uL Baso # (0.0-0.2) K/uL Neutrophils % (Manual) (50-75) % Band Neutrophils % (0-2) % Lymphocytes % (Manual) (20-40) % Reactive Lymphs % (0-0) % Monocytes % (Manual) (0-10) % Metamyelocytes % (0-0) % Myelocytes % (0-0) % Nucleated RBC % (0-0) % Platelet Estimate (NORMAL) Puncture Site Rb pCO2 55 H (35-45) mm/Hg pO2 82 (80-100) mm/Hg HCO3 22.2 (21-28) mmol/L ABG pH 7.26 L (7.35-7.45) ABG Total CO2 26.4 (22-28) mmol/L ABG O2 Saturation 97.2 (95-98) % ABG Base Excess -3.3 L (-2.0-3.0) mmol/L ABG Hemoglobin 14.7 (11.7-17.4) g/dL ABG Carboxyhemoglobin 2.0 H (0.5-1.5) % POC ABG HHb (Measured) 2.7 (0.0-5.0) % ABG Methemoglobin 1.8 (0.0-3.0) % Telly Test Na ABG Potassium (3.6-5.2) mmol/L A-a O2 Difference 348.0 mm/Hg Respiratory Index 4.2 Hgb O2 Saturation 93.6 L (95.0-98.0) % Glucose (65-105) mg/dl Lactate (0.7-2.1) mmol/L Vent Mode Prvc Mechanical Rate 18 FiO2 70.0 % Tidal Volume 500 PEEP 5 Inspiratory BiPAP Expiratory BiPAP Crit Value Called To Crit Value Called By Crit Value Read Back Blood Gas Notified Time Sodium (132-148) mmol/L Potassium (3.6-5.2) mmol/L Chloride (98-107) mmol/L Carbon Dioxide (22-30) mmol/L Anion Gap (10-20) BUN (7-17) mg/dL Creatinine (0.7-1.2) MG/DL Est GFR ( Amer) Est GFR (Non-Af Amer) POC Glucose (mg/dL) 106 95 (65-110) mg/dL Random Glucose (65-105) mg/dL Lactic Acid (0.7-2.1) mmol/L Calcium (8.6-10.4) mg/dl Phosphorus (2.5-4.5) mg/dL Magnesium (1.6-2.3) mg/dL Total Bilirubin (0.2-1.3) mg/dL AST (14-36) U/L ALT (9-52) U/L Alkaline Phosphatase (38-126) U/L Total Creatine Kinase (30-135) U/L CK-MB (Mass) (0.0-3.38) ng/mL Troponin I (0.00-0.120) ng/mL Troponin I, Quant (0.00-0.120) ng/mL NT-Pro-B Natriuret Pep (0-900) pg/mL Total Protein (6.3-8.3) g/dL Albumin (3.5-5.0) g/dL Globulin (2.2-3.9) gm/dL Albumin/Globulin Ratio (1.0-2.1) Arterial Blood Potassium (3.6-5.2) mmol/L 03/07/17 03/07/17 03/07/17 Range/Units 02:38 01:22 00:54 WBC (4.8-10.8) K/uL RBC (3.80-5.20) Mil/uL Hgb (11.0-16.0) g/dL Hct (34.0-47.0) % MCV (81.0-99.0) fL MCH (27.0-31.0) pg MCHC (33.0-37.0) g/dL RDW (11.5-14.5) % Plt Count (130-400) K/uL MPV (7.2-11.7) fL Neut % (Auto) (50.0-75.0) % Lymph % (Auto) (20.0-40.0) % Reynolds % (Auto) (0.0-10.0) % Eos % (Auto) (0.0-4.0) % Baso % (Auto) (0.0-2.0) % Neut # (1.8-7.0) K/uL Lymph # (1.0-4.3) K/uL Reynolds # (0.0-0.8) K/uL Eos # (0.0-0.7) K/uL Baso # (0.0-0.2) K/uL Neutrophils % (Manual) (50-75) % Band Neutrophils % (0-2) % Lymphocytes % (Manual) (20-40) % Reactive Lymphs % (0-0) % Monocytes % (Manual) (0-10) % Metamyelocytes % (0-0) % Myelocytes % (0-0) % Nucleated RBC % (0-0) % Platelet Estimate (NORMAL) Puncture Site pCO2 (35-45) mm/Hg pO2 (80-100) mm/Hg HCO3 (21-28) mmol/L ABG pH (7.35-7.45) ABG Total CO2 (22-28) mmol/L ABG O2 Saturation (95-98) % ABG Base Excess (-2.0-3.0) mmol/L ABG Hemoglobin (11.7-17.4) g/dL ABG Carboxyhemoglobin (0.5-1.5) % POC ABG HHb (Measured) (0.0-5.0) % ABG Methemoglobin (0.0-3.0) % Telly Test ABG Potassium (3.6-5.2) mmol/L A-a O2 Difference mm/Hg Respiratory Index Hgb O2 Saturation (95.0-98.0) % Glucose (65-105) mg/dl Lactate (0.7-2.1) mmol/L Vent Mode Mechanical Rate FiO2 % Tidal Volume PEEP Inspiratory BiPAP Expiratory BiPAP Crit Value Called To Crit Value Called By Crit Value Read Back Blood Gas Notified Time Sodium 128 L (132-148) mmol/L Potassium 4.1 (3.6-5.2) mmol/L Chloride 95 L (98-107) mmol/L Carbon Dioxide 24 (22-30) mmol/L Anion Gap 13 (10-20) BUN 44 H (7-17) mg/dL Creatinine 2.4 H (0.7-1.2) MG/DL Est GFR ( Amer) 24 Est GFR (Non-Af Amer) 20 POC Glucose (mg/dL) 144 H 161 H (65-110) mg/dL Random Glucose 174 H (65-105) mg/dL Lactic Acid (0.7-2.1) mmol/L Calcium 6.7 L (8.6-10.4) mg/dl Phosphorus 3.4 (2.5-4.5) mg/dL Magnesium 2.5 H (1.6-2.3) mg/dL Total Bilirubin 0.5 (0.2-1.3) mg/dL AST 39 H D (14-36) U/L ALT 37 (9-52) U/L Alkaline Phosphatase 37 L (38-126) U/L Total Creatine Kinase (30-135) U/L CK-MB (Mass) (0.0-3.38) ng/mL Troponin I (0.00-0.120) ng/mL Troponin I, Quant (0.00-0.120) ng/mL NT-Pro-B Natriuret Pep (0-900) pg/mL Total Protein 4.6 L (6.3-8.3) g/dL Albumin 2.5 L (3.5-5.0) g/dL Globulin 2.1 L (2.2-3.9) gm/dL Albumin/Globulin Ratio 1.2 (1.0-2.1) Arterial Blood Potassium (3.6-5.2) mmol/L 03/07/17 03/07/17 03/07/17 Range/Units 00:54 00:54 00:13 WBC 5.1 (4.8-10.8) K/uL RBC 4.51 (3.80-5.20) Mil/uL Hgb 13.4 (11.0-16.0) g/dL Hct 40.4 (34.0-47.0) % MCV 89.5 (81.0-99.0) fL MCH 29.6 (27.0-31.0) pg MCHC 33.1 (33.0-37.0) g/dL RDW 14.3 (11.5-14.5) % Plt Count 355 (130-400) K/uL MPV 7.8 (7.2-11.7) fL Neut % (Auto) 87.9 H (50.0-75.0) % Lymph % (Auto) 8.7 L (20.0-40.0) % Reynolds % (Auto) 3.2 (0.0-10.0) % Eos % (Auto) 0.1 (0.0-4.0) % Baso % (Auto) 0.1 (0.0-2.0) % Neut # 4.4 (1.8-7.0) K/uL Lymph # 0.4 L (1.0-4.3) K/uL Reynolds # 0.2 (0.0-0.8) K/uL Eos # 0.0 (0.0-0.7) K/uL Baso # 0.0 (0.0-0.2) K/uL Neutrophils % (Manual) 23 L (50-75) % Band Neutrophils % 43 H* (0-2) % Lymphocytes % (Manual) 8 L (20-40) % Reactive Lymphs % 10 H (0-0) % Monocytes % (Manual) 7 (0-10) % Metamyelocytes % 5 H (0-0) % Myelocytes % 4 H (0-0) % Nucleated RBC % 1 H (0-0) % Platelet Estimate Normal (NORMAL) Puncture Site pCO2 (35-45) mm/Hg pO2 (80-100) mm/Hg HCO3 (21-28) mmol/L ABG pH (7.35-7.45) ABG Total CO2 (22-28) mmol/L ABG O2 Saturation (95-98) % ABG Base Excess (-2.0-3.0) mmol/L ABG Hemoglobin (11.7-17.4) g/dL ABG Carboxyhemoglobin (0.5-1.5) % POC ABG HHb (Measured) (0.0-5.0) % ABG Methemoglobin (0.0-3.0) % Telly Test ABG Potassium (3.6-5.2) mmol/L A-a O2 Difference mm/Hg Respiratory Index Hgb O2 Saturation (95.0-98.0) % Glucose (65-105) mg/dl Lactate (0.7-2.1) mmol/L Vent Mode Mechanical Rate FiO2 % Tidal Volume PEEP Inspiratory BiPAP Expiratory BiPAP Crit Value Called To Crit Value Called By Crit Value Read Back Blood Gas Notified Time Sodium (132-148) mmol/L Potassium (3.6-5.2) mmol/L Chloride (98-107) mmol/L Carbon Dioxide (22-30) mmol/L Anion Gap (10-20) BUN (7-17) mg/dL Creatinine (0.7-1.2) MG/DL Est GFR ( Amer) Est GFR (Non-Af Amer) POC Glucose (mg/dL) 66 (65-110) mg/dL Random Glucose (65-105) mg/dL Lactic Acid 1.6 (0.7-2.1) mmol/L Calcium (8.6-10.4) mg/dl Phosphorus (2.5-4.5) mg/dL Magnesium (1.6-2.3) mg/dL Total Bilirubin (0.2-1.3) mg/dL AST (14-36) U/L ALT (9-52) U/L Alkaline Phosphatase (38-126) U/L Total Creatine Kinase (30-135) U/L CK-MB (Mass) (0.0-3.38) ng/mL Troponin I (0.00-0.120) ng/mL Troponin I, Quant (0.00-0.120) ng/mL NT-Pro-B Natriuret Pep (0-900) pg/mL Total Protein (6.3-8.3) g/dL Albumin (3.5-5.0) g/dL Globulin (2.2-3.9) gm/dL Albumin/Globulin Ratio (1.0-2.1) Arterial Blood Potassium (3.6-5.2) mmol/L 03/06/17 03/06/17 03/06/17 Range/Units 23:44 22:30 20:26 WBC (4.8-10.8) K/uL RBC (3.80-5.20) Mil/uL Hgb (11.0-16.0) g/dL Hct (34.0-47.0) % MCV (81.0-99.0) fL MCH (27.0-31.0) pg MCHC (33.0-37.0) g/dL RDW (11.5-14.5) % Plt Count (130-400) K/uL MPV (7.2-11.7) fL Neut % (Auto) (50.0-75.0) % Lymph % (Auto) (20.0-40.0) % Reynolds % (Auto) (0.0-10.0) % Eos % (Auto) (0.0-4.0) % Baso % (Auto) (0.0-2.0) % Neut # (1.8-7.0) K/uL Lymph # (1.0-4.3) K/uL Reynolds # (0.0-0.8) K/uL Eos # (0.0-0.7) K/uL Baso # (0.0-0.2) K/uL Neutrophils % (Manual) (50-75) % Band Neutrophils % (0-2) % Lymphocytes % (Manual) (20-40) % Reactive Lymphs % (0-0) % Monocytes % (Manual) (0-10) % Metamyelocytes % (0-0) % Myelocytes % (0-0) % Nucleated RBC % (0-0) % Platelet Estimate (NORMAL) Puncture Site Rra pCO2 51 H (35-45) mm/Hg pO2 60 L (80-100) mm/Hg HCO3 22.7 (21-28) mmol/L ABG pH 7.29 L (7.35-7.45) ABG Total CO2 26.1 (22-28) mmol/L ABG O2 Saturation 94.2 L (95-98) % ABG Base Excess -2.6 L (-2.0-3.0) mmol/L ABG Hemoglobin 13.3 (11.7-17.4) g/dL ABG Carboxyhemoglobin 1.9 H (0.5-1.5) % POC ABG HHb (Measured) 5.6 H (0.0-5.0) % ABG Methemoglobin 1.0 (0.0-3.0) % Telly Test Pos ABG Potassium (3.6-5.2) mmol/L A-a O2 Difference 304.0 mm/Hg Respiratory Index 5.1 Hgb O2 Saturation 91.5 L (95.0-98.0) % Glucose (65-105) mg/dl Lactate (0.7-2.1) mmol/L Vent Mode A/c Mechanical Rate FiO2 60.0 % Tidal Volume 500 PEEP 5 Inspiratory BiPAP Expiratory BiPAP Crit Value Called To Crit Value Called By Crit Value Read Back Blood Gas Notified Time Sodium (132-148) mmol/L Potassium (3.6-5.2) mmol/L Chloride (98-107) mmol/L Carbon Dioxide (22-30) mmol/L Anion Gap (10-20) BUN (7-17) mg/dL Creatinine (0.7-1.2) MG/DL Est GFR ( Amer) Est GFR (Non-Af Amer) POC Glucose (mg/dL) 90 154 H (65-110) mg/dL Random Glucose (65-105) mg/dL Lactic Acid (0.7-2.1) mmol/L Calcium (8.6-10.4) mg/dl Phosphorus (2.5-4.5) mg/dL Magnesium (1.6-2.3) mg/dL Total Bilirubin (0.2-1.3) mg/dL AST (14-36) U/L ALT (9-52) U/L Alkaline Phosphatase (38-126) U/L Total Creatine Kinase (30-135) U/L CK-MB (Mass) (0.0-3.38) ng/mL Troponin I (0.00-0.120) ng/mL Troponin I, Quant (0.00-0.120) ng/mL NT-Pro-B Natriuret Pep (0-900) pg/mL Total Protein (6.3-8.3) g/dL Albumin (3.5-5.0) g/dL Globulin (2.2-3.9) gm/dL Albumin/Globulin Ratio (1.0-2.1) Arterial Blood Potassium (3.6-5.2) mmol/L 03/06/17 03/06/17 03/06/17 Range/Units 20:05 19:05 18:36 WBC (4.8-10.8) K/uL RBC (3.80-5.20) Mil/uL Hgb (11.0-16.0) g/dL Hct (34.0-47.0) % MCV (81.0-99.0) fL MCH (27.0-31.0) pg MCHC (33.0-37.0) g/dL RDW (11.5-14.5) % Plt Count (130-400) K/uL MPV (7.2-11.7) fL Neut % (Auto) (50.0-75.0) % Lymph % (Auto) (20.0-40.0) % Reynolds % (Auto) (0.0-10.0) % Eos % (Auto) (0.0-4.0) % Baso % (Auto) (0.0-2.0) % Neut # (1.8-7.0) K/uL Lymph # (1.0-4.3) K/uL Reynolds # (0.0-0.8) K/uL Eos # (0.0-0.7) K/uL Baso # (0.0-0.2) K/uL Neutrophils % (Manual) (50-75) % Band Neutrophils % (0-2) % Lymphocytes % (Manual) (20-40) % Reactive Lymphs % (0-0) % Monocytes % (Manual) (0-10) % Metamyelocytes % (0-0) % Myelocytes % (0-0) % Nucleated RBC % (0-0) % Platelet Estimate (NORMAL) Puncture Site Ra Rba pCO2 55 H 59 H (35-45) mm/Hg pO2 123 H 109 H (80-100) mm/Hg HCO3 24.0 24.2 (21-28) mmol/L ABG pH 7.29 L 7.27 L (7.35-7.45) ABG Total CO2 28.1 H 28.9 H (22-28) mmol/L ABG O2 Saturation 99.5 H 98.9 H (95-98) % ABG Base Excess -1.1 -0.9 (-2.0-3.0) mmol/L ABG Hemoglobin 13.6 13.1 (11.7-17.4) g/dL ABG Carboxyhemoglobin 1.9 H 1.6 H (0.5-1.5) % POC ABG HHb (Measured) 0.5 1.1 (0.0-5.0) % ABG Methemoglobin 1.3 1.2 (0.0-3.0) % Telly Test Pos Na ABG Potassium (3.6-5.2) mmol/L A-a O2 Difference 236.0 245.0 mm/Hg Respiratory Index 1.9 2.2 Hgb O2 Saturation 96.4 96.1 (95.0-98.0) % Glucose (65-105) mg/dl Lactate (0.7-2.1) mmol/L Vent Mode Bipap Bipap Mechanical Rate FiO2 60.0 60.0 % Tidal Volume PEEP Inspiratory BiPAP 18 16 Expiratory BiPAP 10 8 Crit Value Called To Crit Value Called By Crit Value Read Back Blood Gas Notified Time Sodium (132-148) mmol/L Potassium (3.6-5.2) mmol/L Chloride (98-107) mmol/L Carbon Dioxide (22-30) mmol/L Anion Gap (10-20) BUN (7-17) mg/dL Creatinine (0.7-1.2) MG/DL Est GFR ( Amer) Est GFR (Non-Af Amer) POC Glucose (mg/dL) 41 L (65-110) mg/dL Random Glucose (65-105) mg/dL Lactic Acid (0.7-2.1) mmol/L Calcium (8.6-10.4) mg/dl Phosphorus (2.5-4.5) mg/dL Magnesium (1.6-2.3) mg/dL Total Bilirubin (0.2-1.3) mg/dL AST (14-36) U/L ALT (9-52) U/L Alkaline Phosphatase (38-126) U/L Total Creatine Kinase (30-135) U/L CK-MB (Mass) (0.0-3.38) ng/mL Troponin I (0.00-0.120) ng/mL Troponin I, Quant (0.00-0.120) ng/mL NT-Pro-B Natriuret Pep (0-900) pg/mL Total Protein (6.3-8.3) g/dL Albumin (3.5-5.0) g/dL Globulin (2.2-3.9) gm/dL Albumin/Globulin Ratio (1.0-2.1) Arterial Blood Potassium (3.6-5.2) mmol/L 03/06/17 03/06/17 03/06/17 Range/Units 17:52 17:15 17:15 WBC 5.7 (4.8-10.8) K/uL RBC 4.81 (3.80-5.20) Mil/uL Hgb 14.3 (11.0-16.0) g/dL Hct 42.8 (34.0-47.0) % MCV 89.0 (81.0-99.0) fL MCH 29.8 (27.0-31.0) pg MCHC 33.5 (33.0-37.0) g/dL RDW 13.5 (11.5-14.5) % Plt Count 454 H (130-400) K/uL MPV 8.0 (7.2-11.7) fL Neut % (Auto) 83.9 H (50.0-75.0) % Lymph % (Auto) 12.4 L (20.0-40.0) % Reynolds % (Auto) 3.5 (0.0-10.0) % Eos % (Auto) 0.1 (0.0-4.0) % Baso % (Auto) 0.1 (0.0-2.0) % Neut # 4.8 (1.8-7.0) K/uL Lymph # 0.7 L (1.0-4.3) K/uL Reynolds # 0.2 (0.0-0.8) K/uL Eos # 0.0 (0.0-0.7) K/uL Baso # 0.0 (0.0-0.2) K/uL Neutrophils % (Manual) (50-75) % Band Neutrophils % (0-2) % Lymphocytes % (Manual) (20-40) % Reactive Lymphs % (0-0) % Monocytes % (Manual) (0-10) % Metamyelocytes % (0-0) % Myelocytes % (0-0) % Nucleated RBC % (0-0) % Platelet Estimate (NORMAL) Puncture Site pCO2 (35-45) mm/Hg pO2 (80-100) mm/Hg HCO3 (21-28) mmol/L ABG pH (7.35-7.45) ABG Total CO2 (22-28) mmol/L ABG O2 Saturation (95-98) % ABG Base Excess (-2.0-3.0) mmol/L ABG Hemoglobin (11.7-17.4) g/dL ABG Carboxyhemoglobin (0.5-1.5) % POC ABG HHb (Measured) (0.0-5.0) % ABG Methemoglobin (0.0-3.0) % Telly Test ABG Potassium (3.6-5.2) mmol/L A-a O2 Difference mm/Hg Respiratory Index Hgb O2 Saturation (95.0-98.0) % Glucose (65-105) mg/dl Lactate (0.7-2.1) mmol/L Vent Mode Mechanical Rate FiO2 % Tidal Volume PEEP Inspiratory BiPAP Expiratory BiPAP Crit Value Called To Crit Value Called By Crit Value Read Back Blood Gas Notified Time Sodium 128 L (132-148) mmol/L Potassium 4.2 (3.6-5.2) mmol/L Chloride 94 L (98-107) mmol/L Carbon Dioxide 24 (22-30) mmol/L Anion Gap 14 (10-20) BUN 42 H (7-17) mg/dL Creatinine 2.0 H (0.7-1.2) MG/DL Est GFR ( Amer) 29 Est GFR (Non-Af Amer) 24 POC Glucose (mg/dL) 60 L (65-110) mg/dL Random Glucose 78 (65-105) mg/dL Lactic Acid (0.7-2.1) mmol/L Calcium 7.4 L (8.6-10.4) mg/dl Phosphorus (2.5-4.5) mg/dL Magnesium (1.6-2.3) mg/dL Total Bilirubin 0.5 (0.2-1.3) mg/dL AST 29 (14-36) U/L ALT 37 (9-52) U/L Alkaline Phosphatase 43 (38-126) U/L Total Creatine Kinase (30-135) U/L CK-MB (Mass) (0.0-3.38) ng/mL Troponin I 0.1160 (0.00-0.120) ng/mL Troponin I, Quant (0.00-0.120) ng/mL NT-Pro-B Natriuret Pep (0-900) pg/mL Total Protein 5.2 L (6.3-8.3) g/dL Albumin 2.9 L (3.5-5.0) g/dL Globulin 2.3 (2.2-3.9) gm/dL Albumin/Globulin Ratio 1.3 (1.0-2.1) Arterial Blood Potassium (3.6-5.2) mmol/L 03/06/17 03/06/17 03/06/17 Range/Units 16:15 16:01 11:49 WBC (4.8-10.8) K/uL RBC (3.80-5.20) Mil/uL Hgb (11.0-16.0) g/dL Hct (34.0-47.0) % MCV (81.0-99.0) fL MCH (27.0-31.0) pg MCHC (33.0-37.0) g/dL RDW (11.5-14.5) % Plt Count (130-400) K/uL MPV (7.2-11.7) fL Neut % (Auto) (50.0-75.0) % Lymph % (Auto) (20.0-40.0) % Reynolds % (Auto) (0.0-10.0) % Eos % (Auto) (0.0-4.0) % Baso % (Auto) (0.0-2.0) % Neut # (1.8-7.0) K/uL Lymph # (1.0-4.3) K/uL Reynolds # (0.0-0.8) K/uL Eos # (0.0-0.7) K/uL Baso # (0.0-0.2) K/uL Neutrophils % (Manual) (50-75) % Band Neutrophils % (0-2) % Lymphocytes % (Manual) (20-40) % Reactive Lymphs % (0-0) % Monocytes % (Manual) (0-10) % Metamyelocytes % (0-0) % Myelocytes % (0-0) % Nucleated RBC % (0-0) % Platelet Estimate (NORMAL) Puncture Site Lb pCO2 56 H (35-45) mm/Hg pO2 38 L* (80-100) mm/Hg HCO3 23.5 (21-28) mmol/L ABG pH 7.29 L (7.35-7.45) ABG Total CO2 28.6 H (22-28) mmol/L ABG O2 Saturation 77.7 L (95-98) % ABG Base Excess -0.7 (-2.0-3.0) mmol/L ABG Hemoglobin (11.7-17.4) g/dL ABG Carboxyhemoglobin (0.5-1.5) % POC ABG HHb (Measured) (0.0-5.0) % ABG Methemoglobin (0.0-3.0) % Telly Test Na ABG Potassium 3.8 (3.6-5.2) mmol/L A-a O2 Difference 177.0 mm/Hg Respiratory Index 4.7 Hgb O2 Saturation (95.0-98.0) % Glucose 104 (65-105) mg/dl Lactate 1.7 (0.7-2.1) mmol/L Vent Mode Mechanical Rate FiO2 40.0 % Tidal Volume PEEP Inspiratory BiPAP 10 Expiratory BiPAP 5 Crit Value Called To Dr quin perez Crit Value Called By Ta chacon dinkey engine operator Crit Value Read Back Y Blood Gas Notified Time 1625 Sodium 130.0 L (132-148) mmol/L Potassium (3.6-5.2) mmol/L Chloride 97.0 L (98-107) mmol/L Carbon Dioxide (22-30) mmol/L Anion Gap (10-20) BUN (7-17) mg/dL Creatinine (0.7-1.2) MG/DL Est GFR ( Amer) Est GFR (Non-Af Amer) POC Glucose (mg/dL) 125 H (65-110) mg/dL Random Glucose (65-105) mg/dL Lactic Acid (0.7-2.1) mmol/L Calcium (8.6-10.4) mg/dl Phosphorus (2.5-4.5) mg/dL Magnesium (1.6-2.3) mg/dL Total Bilirubin (0.2-1.3) mg/dL AST (14-36) U/L ALT (9-52) U/L Alkaline Phosphatase (38-126) U/L Total Creatine Kinase 50 (30-135) U/L CK-MB (Mass) 1.92 (0.0-3.38) ng/mL Troponin I (0.00-0.120) ng/mL Troponin I, Quant 0.0950 (0.00-0.120) ng/mL NT-Pro-B Natriuret Pep (0-900) pg/mL Total Protein (6.3-8.3) g/dL Albumin (3.5-5.0) g/dL Globulin (2.2-3.9) gm/dL Albumin/Globulin Ratio (1.0-2.1) Arterial Blood Potassium 3.8 (3.6-5.2) mmol/L 03/06/17 03/06/17 03/06/17 Range/Units 11:13 07:19 07:19 WBC (4.8-10.8) K/uL RBC (3.80-5.20) Mil/uL Hgb (11.0-16.0) g/dL Hct (34.0-47.0) % MCV (81.0-99.0) fL MCH (27.0-31.0) pg MCHC (33.0-37.0) g/dL RDW (11.5-14.5) % Plt Count (130-400) K/uL MPV (7.2-11.7) fL Neut % (Auto) (50.0-75.0) % Lymph % (Auto) (20.0-40.0) % Reynolds % (Auto) (0.0-10.0) % Eos % (Auto) (0.0-4.0) % Baso % (Auto) (0.0-2.0) % Neut # (1.8-7.0) K/uL Lymph # (1.0-4.3) K/uL Reynolds # (0.0-0.8) K/uL Eos # (0.0-0.7) K/uL Baso # (0.0-0.2) K/uL Neutrophils % (Manual) (50-75) % Band Neutrophils % (0-2) % Lymphocytes % (Manual) (20-40) % Reactive Lymphs % (0-0) % Monocytes % (Manual) (0-10) % Metamyelocytes % (0-0) % Myelocytes % (0-0) % Nucleated RBC % (0-0) % Platelet Estimate (NORMAL) Puncture Site pCO2 (35-45) mm/Hg pO2 (80-100) mm/Hg HCO3 (21-28) mmol/L ABG pH (7.35-7.45) ABG Total CO2 (22-28) mmol/L ABG O2 Saturation (95-98) % ABG Base Excess (-2.0-3.0) mmol/L ABG Hemoglobin (11.7-17.4) g/dL ABG Carboxyhemoglobin (0.5-1.5) % POC ABG HHb (Measured) (0.0-5.0) % ABG Methemoglobin (0.0-3.0) % Telly Test ABG Potassium (3.6-5.2) mmol/L A-a O2 Difference mm/Hg Respiratory Index Hgb O2 Saturation (95.0-98.0) % Glucose (65-105) mg/dl Lactate (0.7-2.1) mmol/L Vent Mode Mechanical Rate FiO2 % Tidal Volume PEEP Inspiratory BiPAP Expiratory BiPAP Crit Value Called To Crit Value Called By Crit Value Read Back Blood Gas Notified Time Sodium 131 L (132-148) mmol/L Potassium 4.0 (3.6-5.2) mmol/L Chloride 91 L (98-107) mmol/L Carbon Dioxide 28 (22-30) mmol/L Anion Gap 16 (10-20) BUN 34 H (7-17) mg/dL Creatinine 1.3 H (0.7-1.2) MG/DL Est GFR ( Amer) 48 Est GFR (Non-Af Amer) 40 POC Glucose (mg/dL) 176 H (65-110) mg/dL Random Glucose 154 H (65-105) mg/dL Lactic Acid (0.7-2.1) mmol/L Calcium 7.7 L (8.6-10.4) mg/dl Phosphorus (2.5-4.5) mg/dL Magnesium (1.6-2.3) mg/dL Total Bilirubin 0.4 (0.2-1.3) mg/dL AST 20 (14-36) U/L ALT 38 (9-52) U/L Alkaline Phosphatase 55 (38-126) U/L Total Creatine Kinase 68 (30-135) U/L CK-MB (Mass) 2.79 (0.0-3.38) ng/mL Troponin I (0.00-0.120) ng/mL Troponin I, Quant 0.0850 (0.00-0.120) ng/mL NT-Pro-B Natriuret Pep 7150 H (0-900) pg/mL Total Protein 5.6 L (6.3-8.3) g/dL Albumin 3.2 L (3.5-5.0) g/dL Globulin 2.5 (2.2-3.9) gm/dL Albumin/Globulin Ratio 1.3 (1.0-2.1) Arterial Blood Potassium (3.6-5.2) mmol/L 03/06/17 03/06/17 Range/Units 07:19 07:02 WBC 10.3 (4.8-10.8) K/uL RBC 4.81 (3.80-5.20) Mil/uL Hgb 14.3 (11.0-16.0) g/dL Hct 42.8 (34.0-47.0) % MCV 89.0 (81.0-99.0) fL MCH 29.7 (27.0-31.0) pg MCHC 33.4 (33.0-37.0) g/dL RDW 13.9 (11.5-14.5) % Plt Count 437 H D (130-400) K/uL MPV 8.2 (7.2-11.7) fL Neut % (Auto) 84.7 H (50.0-75.0) % Lymph % (Auto) 10.1 L (20.0-40.0) % Reynolds % (Auto) 5.0 (0.0-10.0) % Eos % (Auto) 0.0 (0.0-4.0) % Baso % (Auto) 0.2 (0.0-2.0) % Neut # 8.7 H (1.8-7.0) K/uL Lymph # 1.0 (1.0-4.3) K/uL Reynolds # 0.5 (0.0-0.8) K/uL Eos # 0.0 (0.0-0.7) K/uL Baso # 0.0 (0.0-0.2) K/uL Neutrophils % (Manual) (50-75) % Band Neutrophils % (0-2) % Lymphocytes % (Manual) (20-40) % Reactive Lymphs % (0-0) % Monocytes % (Manual) (0-10) % Metamyelocytes % (0-0) % Myelocytes % (0-0) % Nucleated RBC % (0-0) % Platelet Estimate (NORMAL) Puncture Site pCO2 (35-45) mm/Hg pO2 (80-100) mm/Hg HCO3 (21-28) mmol/L ABG pH (7.35-7.45) ABG Total CO2 (22-28) mmol/L ABG O2 Saturation (95-98) % ABG Base Excess (-2.0-3.0) mmol/L ABG Hemoglobin (11.7-17.4) g/dL ABG Carboxyhemoglobin (0.5-1.5) % POC ABG HHb (Measured) (0.0-5.0) % ABG Methemoglobin (0.0-3.0) % Telly Test ABG Potassium (3.6-5.2) mmol/L A-a O2 Difference mm/Hg Respiratory Index Hgb O2 Saturation (95.0-98.0) % Glucose (65-105) mg/dl Lactate (0.7-2.1) mmol/L Vent Mode Mechanical Rate FiO2 % Tidal Volume PEEP Inspiratory BiPAP Expiratory BiPAP Crit Value Called To Crit Value Called By Crit Value Read Back Blood Gas Notified Time Sodium (132-148) mmol/L Potassium (3.6-5.2) mmol/L Chloride (98-107) mmol/L Carbon Dioxide (22-30) mmol/L Anion Gap (10-20) BUN (7-17) mg/dL Creatinine (0.7-1.2) MG/DL Est GFR ( Amer) Est GFR (Non-Af Amer) POC Glucose (mg/dL) 154 H (65-110) mg/dL Random Glucose (65-105) mg/dL Lactic Acid (0.7-2.1) mmol/L Calcium (8.6-10.4) mg/dl Phosphorus (2.5-4.5) mg/dL Magnesium (1.6-2.3) mg/dL Total Bilirubin (0.2-1.3) mg/dL AST (14-36) U/L ALT (9-52) U/L Alkaline Phosphatase (38-126) U/L Total Creatine Kinase (30-135) U/L CK-MB (Mass) (0.0-3.38) ng/mL Troponin I (0.00-0.120) ng/mL Troponin I, Quant (0.00-0.120) ng/mL NT-Pro-B Natriuret Pep (0-900) pg/mL Total Protein (6.3-8.3) g/dL Albumin (3.5-5.0) g/dL Globulin (2.2-3.9) gm/dL Albumin/Globulin Ratio (1.0-2.1) Arterial Blood Potassium (3.6-5.2) mmol/L Laboratory Results - last 24 hr 03/06/17 03/06/17 03/06/17 07:02 07:19 07:19 WBC 10.3 RBC 4.81 Hgb 14.3 Hct 42.8 MCV 89.0 MCH 29.7 MCHC 33.4 RDW 13.9 Plt Count 437 H D MPV 8.2 Neut % (Auto) 84.7 H Lymph % (Auto) 10.1 L Reynolds % (Auto) 5.0 Eos % (Auto) 0.0 Baso % (Auto) 0.2 Neut # 8.7 H Lymph # 1.0 Reynolds # 0.5 Eos # 0.0 Baso # 0.0 Neutrophils % (Manual) Band Neutrophils % Lymphocytes % (Manual) Reactive Lymphs % Monocytes % (Manual) Metamyelocytes % Myelocytes % Nucleated RBC % Platelet Estimate Puncture Site pCO2 pO2 HCO3 ABG pH ABG Total CO2 ABG O2 Saturation ABG Base Excess ABG Hemoglobin ABG Carboxyhemoglobin POC ABG HHb (Measured) ABG Methemoglobin Telly Test ABG Potassium A-a O2 Difference Respiratory Index Hgb O2 Saturation Glucose Lactate Vent Mode Mechanical Rate FiO2 Tidal Volume PEEP Inspiratory BiPAP Expiratory BiPAP Crit Value Called To Crit Value Called By Crit Value Read Back Blood Gas Notified Time Sodium 131 L Potassium 4.0 Chloride 91 L Carbon Dioxide 28 Anion Gap 16 BUN 34 H Creatinine 1.3 H Est GFR ( Amer) 48 Est GFR (Non-Af Amer) 40 POC Glucose (mg/dL) 154 H Random Glucose 154 H Lactic Acid Calcium 7.7 L Phosphorus Magnesium Total Bilirubin 0.4 AST 20 ALT 38 Alkaline Phosphatase 55 Total Creatine Kinase CK-MB (Mass) Troponin I Troponin I, Quant NT-Pro-B Natriuret Pep 7150 H Total Protein 5.6 L Albumin 3.2 L Globulin 2.5 Albumin/Globulin Ratio 1.3 Arterial Blood Potassium 03/06/17 03/06/17 03/06/17 07:19 11:13 11:49 WBC RBC Hgb Hct MCV MCH MCHC RDW Plt Count MPV Neut % (Auto) Lymph % (Auto) Reynolds % (Auto) Eos % (Auto) Baso % (Auto) Neut # Lymph # Reynolds # Eos # Baso # Neutrophils % (Manual) Band Neutrophils % Lymphocytes % (Manual) Reactive Lymphs % Monocytes % (Manual) Metamyelocytes % Myelocytes % Nucleated RBC % Platelet Estimate Puncture Site pCO2 pO2 HCO3 ABG pH ABG Total CO2 ABG O2 Saturation ABG Base Excess ABG Hemoglobin ABG Carboxyhemoglobin POC ABG HHb (Measured) ABG Methemoglobin Telly Test ABG Potassium A-a O2 Difference Respiratory Index Hgb O2 Saturation Glucose Lactate Vent Mode Mechanical Rate FiO2 Tidal Volume PEEP Inspiratory BiPAP Expiratory BiPAP Crit Value Called To Crit Value Called By Crit Value Read Back Blood Gas Notified Time Sodium Potassium Chloride Carbon Dioxide Anion Gap BUN Creatinine Est GFR ( Amer) Est GFR (Non-Af Amer) POC Glucose (mg/dL) 176 H Random Glucose Lactic Acid Calcium Phosphorus Magnesium Total Bilirubin AST ALT Alkaline Phosphatase Total Creatine Kinase 68 50 CK-MB (Mass) 2.79 1.92 Troponin I Troponin I, Quant 0.0850 0.0950 NT-Pro-B Natriuret Pep Total Protein Albumin Globulin Albumin/Globulin Ratio Arterial Blood Potassium 03/06/17 03/06/17 03/06/17 16:01 16:15 17:15 WBC 5.7 RBC 4.81 Hgb 14.3 Hct 42.8 MCV 89.0 MCH 29.8 MCHC 33.5 RDW 13.5 Plt Count 454 H MPV 8.0 Neut % (Auto) 83.9 H Lymph % (Auto) 12.4 L Reynolds % (Auto) 3.5 Eos % (Auto) 0.1 Baso % (Auto) 0.1 Neut # 4.8 Lymph # 0.7 L Reynolds # 0.2 Eos # 0.0 Baso # 0.0 Neutrophils % (Manual) Band Neutrophils % Lymphocytes % (Manual) Reactive Lymphs % Monocytes % (Manual) Metamyelocytes % Myelocytes % Nucleated RBC % Platelet Estimate Puncture Site Lb pCO2 56 H pO2 38 L* HCO3 23.5 ABG pH 7.29 L ABG Total CO2 28.6 H ABG O2 Saturation 77.7 L ABG Base Excess -0.7 ABG Hemoglobin ABG Carboxyhemoglobin POC ABG HHb (Measured) ABG Methemoglobin Telly Test Na ABG Potassium 3.8 A-a O2 Difference 177.0 Respiratory Index 4.7 Hgb O2 Saturation Glucose 104 Lactate 1.7 Vent Mode Mechanical Rate FiO2 40.0 Tidal Volume PEEP Inspiratory BiPAP 10 Expiratory BiPAP 5 Crit Value Called To Dr quin perez Crit Value Called By Ta chacon dinkey engine 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 Crit Value Read Back Y Blood Gas Notified Time 1625 Sodium 130.0 L Potassium Chloride 97.0 L Carbon Dioxide Anion Gap BUN Creatinine Est GFR ( Amer) Est GFR (Non-Af Amer) POC Glucose (mg/dL) 125 H Random Glucose Lactic Acid Calcium Phosphorus Magnesium Total Bilirubin AST ALT Alkaline Phosphatase Total Creatine Kinase CK-MB (Mass) Troponin I Troponin I, Quant NT-Pro-B Natriuret Pep Total Protein Albumin Globulin Albumin/Globulin Ratio Arterial Blood Potassium 3.8 03/06/17 03/06/17 03/06/17 17:15 17:52 18:36 WBC RBC Hgb Hct MCV MCH MCHC RDW Plt Count MPV Neut % (Auto) Lymph % (Auto) Reynolds % (Auto) Eos % (Auto) Baso % (Auto) Neut # Lymph # Reynolds # Eos # Baso # Neutrophils % (Manual) Band Neutrophils % Lymphocytes % (Manual) Reactive Lymphs % Monocytes % (Manual) Metamyelocytes % Myelocytes % Nucleated RBC % Platelet Estimate Puncture Site pCO2 pO2 HCO3 ABG pH ABG Total CO2 ABG O2 Saturation ABG Base Excess ABG Hemoglobin ABG Carboxyhemoglobin POC ABG HHb (Measured) ABG Methemoglobin Telly Test ABG Potassium A-a O2 Difference Respiratory Index Hgb O2 Saturation Glucose Lactate Vent Mode Mechanical Rate FiO2 Tidal Volume PEEP Inspiratory BiPAP Expiratory BiPAP Crit Value Called To Crit Value Called By Crit Value Read Back Blood Gas Notified Time Sodium 128 L Potassium 4.2 Chloride 94 L Carbon Dioxide 24 Anion Gap 14 BUN 42 H Creatinine 2.0 H Est GFR ( Amer) 29 Est GFR (Non-Af Amer) 24 POC Glucose (mg/dL) 60 L 41 L Random Glucose 78 Lactic Acid Calcium 7.4 L Phosphorus Magnesium Total Bilirubin 0.5 AST 29 ALT 37 Alkaline Phosphatase 43 Total Creatine Kinase CK-MB (Mass) Troponin I 0.1160 Troponin I, Quant NT-Pro-B Natriuret Pep Total Protein 5.2 L Albumin 2.9 L Globulin 2.3 Albumin/Globulin Ratio 1.3 Arterial Blood Potassium 03/06/17 03/06/17 03/06/17 19:05 20:05 20:26 WBC RBC Hgb Hct MCV MCH MCHC RDW Plt Count MPV Neut % (Auto) Lymph % (Auto) Reynolds % (Auto) Eos % (Auto) Baso % (Auto) Neut # Lymph # Reynolds # Eos # Baso # Neutrophils % (Manual) Band Neutrophils % Lymphocytes % (Manual) Reactive Lymphs % Monocytes % (Manual) Metamyelocytes % Myelocytes % Nucleated RBC % Platelet Estimate Puncture Site Rba Ra pCO2 59 H 55 H pO2 109 H 123 H HCO3 24.2 24.0 ABG pH 7.27 L 7.29 L ABG Total CO2 28.9 H 28.1 H ABG O2 Saturation 98.9 H 99.5 H ABG Base Excess -0.9 -1.1 ABG Hemoglobin 13.1 13.6 ABG Carboxyhemoglobin 1.6 H 1.9 H POC ABG HHb (Measured) 1.1 0.5 ABG Methemoglobin 1.2 1.3 Telly Test Na Pos ABG Potassium A-a O2 Difference 245.0 236.0 Respiratory Index 2.2 1.9 Hgb O2 Saturation 96.1 96.4 Glucose Lactate Vent Mode Bipap Bipap Mechanical Rate FiO2 60.0 60.0 Tidal Volume PEEP Inspiratory BiPAP 16 18 Expiratory BiPAP 8 10 Crit Value Called To Crit Value Called By Crit Value Read Back Blood Gas Notified Time Sodium Potassium Chloride Carbon Dioxide Anion Gap BUN Creatinine Est GFR ( Amer) Est GFR (Non-Af Amer) POC Glucose (mg/dL) 154 H Random Glucose Lactic Acid Calcium Phosphorus Magnesium Total Bilirubin AST ALT Alkaline Phosphatase Total Creatine Kinase CK-MB (Mass) Troponin I Troponin I, Quant NT-Pro-B Natriuret Pep Total Protein Albumin Globulin Albumin/Globulin Ratio Arterial Blood Potassium 03/06/17 03/06/17 03/07/17 22:30 23:44 00:13 WBC RBC Hgb Hct MCV MCH MCHC RDW Plt Count MPV Neut % (Auto) Lymph % (Auto) Reynolds % (Auto) Eos % (Auto) Baso % (Auto) Neut # Lymph # Reynolds # Eos # Baso # Neutrophils % (Manual) Band Neutrophils % Lymphocytes % (Manual) Reactive Lymphs % Monocytes % (Manual) Metamyelocytes % Myelocytes % Nucleated RBC % Platelet Estimate Puncture Site Rra pCO2 51 H pO2 60 L HCO3 22.7 ABG pH 7.29 L ABG Total CO2 26.1 ABG O2 Saturation 94.2 L ABG Base Excess -2.6 L ABG Hemoglobin 13.3 ABG Carboxyhemoglobin 1.9 H POC ABG HHb (Measured) 5.6 H ABG Methemoglobin 1.0 Telly Test Pos ABG Potassium A-a O2 Difference 304.0 Respiratory Index 5.1 Hgb O2 Saturation 91.5 L Glucose Lactate Vent Mode A/c Mechanical Rate FiO2 60.0 Tidal Volume 500 PEEP 5 Inspiratory BiPAP Expiratory BiPAP Crit Value Called To Crit Value Called By Crit Value Read Back Blood Gas Notified Time Sodium Potassium Chloride Carbon Dioxide Anion Gap BUN Creatinine Est GFR ( Amer) Est GFR (Non-Af Amer) POC Glucose (mg/dL) 90 66 Random Glucose Lactic Acid Calcium Phosphorus Magnesium Total Bilirubin AST ALT Alkaline Phosphatase Total Creatine Kinase CK-MB (Mass) Troponin I Troponin I, Quant NT-Pro-B Natriuret Pep Total Protein Albumin Globulin Albumin/Globulin Ratio Arterial Blood Potassium 03/07/17 03/07/17 03/07/17 00:54 00:54 00:54 WBC 5.1 RBC 4.51 Hgb 13.4 Hct 40.4 MCV 89.5 MCH 29.6 MCHC 33.1 RDW 14.3 Plt Count 355 MPV 7.8 Neut % (Auto) 87.9 H Lymph % (Auto) 8.7 L Reynolds % (Auto) 3.2 Eos % (Auto) 0.1 Baso % (Auto) 0.1 Neut # 4.4 Lymph # 0.4 L Reynolds # 0.2 Eos # 0.0 Baso # 0.0 Neutrophils % (Manual) 23 L Band Neutrophils % 43 H* Lymphocytes % (Manual) 8 L Reactive Lymphs % 10 H Monocytes % (Manual) 7 Metamyelocytes % 5 H Myelocytes % 4 H Nucleated RBC % 1 H Platelet Estimate Normal Puncture Site pCO2 pO2 HCO3 ABG pH ABG Total CO2 ABG O2 Saturation ABG Base Excess ABG Hemoglobin ABG Carboxyhemoglobin POC ABG HHb (Measured) ABG Methemoglobin Telly Test ABG Potassium A-a O2 Difference Respiratory Index Hgb O2 Saturation Glucose Lactate Vent Mode Mechanical Rate FiO2 Tidal Volume PEEP Inspiratory BiPAP Expiratory BiPAP Crit Value Called To Crit Value Called By Crit Value Read Back Blood Gas Notified Time Sodium 128 L Potassium 4.1 Chloride 95 L Carbon Dioxide 24 Anion Gap 13 BUN 44 H Creatinine 2.4 H Est GFR ( Amer) 24 Est GFR (Non-Af Amer) 20 POC Glucose (mg/dL) Random Glucose 174 H Lactic Acid 1.6 Calcium 6.7 L Phosphorus 3.4 Magnesium 2.5 H Total Bilirubin 0.5 AST 39 H D ALT 37 Alkaline Phosphatase 37 L Total Creatine Kinase CK-MB (Mass) Troponin I Troponin I, Quant NT-Pro-B Natriuret Pep Total Protein 4.6 L Albumin 2.5 L Globulin 2.1 L Albumin/Globulin Ratio 1.2 Arterial Blood Potassium 03/07/17 03/07/17 03/07/17 01:22 02:38 04:08 WBC RBC Hgb Hct MCV MCH MCHC RDW Plt Count MPV Neut % (Auto) Lymph % (Auto) Reynolds % (Auto) Eos % (Auto) Baso % (Auto) Neut # Lymph # Reynolds # Eos # Baso # Neutrophils % (Manual) Band Neutrophils % Lymphocytes % (Manual) Reactive Lymphs % Monocytes % (Manual) Metamyelocytes % Myelocytes % Nucleated RBC % Platelet Estimate Puncture Site pCO2 pO2 HCO3 ABG pH ABG Total CO2 ABG O2 Saturation ABG Base Excess ABG Hemoglobin ABG Carboxyhemoglobin POC ABG HHb (Measured) ABG Methemoglobin Telly Test ABG Potassium A-a O2 Difference Respiratory Index Hgb O2 Saturation Glucose Lactate Vent Mode Mechanical Rate FiO2 Tidal Volume PEEP Inspiratory BiPAP Expiratory BiPAP Crit Value Called To Crit Value Called By Crit Value Read Back Blood Gas Notified Time Sodium Potassium Chloride Carbon Dioxide Anion Gap BUN Creatinine Est GFR ( Amer) Est GFR (Non-Af Amer) POC Glucose (mg/dL) 161 H 144 H 95 Random Glucose Lactic Acid Calcium Phosphorus Magnesium Total Bilirubin AST ALT Alkaline Phosphatase Total Creatine Kinase CK-MB (Mass) Troponin I Troponin I, Quant NT-Pro-B Natriuret Pep Total Protein Albumin Globulin Albumin/Globulin Ratio Arterial Blood Potassium 03/07/17 03/07/17 05:19 06:26 WBC RBC Hgb Hct MCV MCH MCHC RDW Plt Count MPV Neut % (Auto) Lymph % (Auto) Reynolds % (Auto) Eos % (Auto) Baso % (Auto) Neut # Lymph # Reynolds # Eos # Baso # Neutrophils % (Manual) Band Neutrophils % Lymphocytes % (Manual) Reactive Lymphs % Monocytes % (Manual) Metamyelocytes % Myelocytes % Nucleated RBC % Platelet Estimate Puncture Site Rb pCO2 55 H pO2 82 HCO3 22.2 ABG pH 7.26 L ABG Total CO2 26.4 ABG O2 Saturation 97.2 ABG Base Excess -3.3 L ABG Hemoglobin 14.7 ABG Carboxyhemoglobin 2.0 H POC ABG HHb (Measured) 2.7 ABG Methemoglobin 1.8 Telly Test Na ABG Potassium A-a O2 Difference 348.0 Respiratory Index 4.2 Hgb O2 Saturation 93.6 L Glucose Lactate Vent Mode Prvc Mechanical Rate 18 FiO2 70.0 Tidal Volume 500 PEEP 5 Inspiratory BiPAP Expiratory BiPAP Crit Value Called To Crit Value Called By Crit Value Read Back Blood Gas Notified Time Sodium Potassium Chloride Carbon Dioxide Anion Gap BUN Creatinine Est GFR ( Amer) Est GFR (Non-Af Amer) POC Glucose (mg/dL) 106 Random Glucose Lactic Acid Calcium Phosphorus Magnesium Total Bilirubin AST ALT Alkaline Phosphatase Total Creatine Kinase CK-MB (Mass) Troponin I Troponin I, Quant NT-Pro-B Natriuret Pep Total Protein Albumin Globulin Albumin/Globulin Ratio Arterial Blood Potassium EKG/Cardiology Studies: Cardiology / EKG Studies 03/06/17 06:03 EKG [ELECTROCARDIOGRAM] Stat Comment: Mode Of Transportation: Reason For Exam: abd pain with elevated trop 03/06/17 16:04 EKG [ELECTROCARDIOGRAM] Stat Comment: Mode Of Transportation: Reason For Exam: SOB, hypotension Fingerstick Blood Sugar Results: 90 Review of Systems - Review of Systems Review of Systems: patient unresponsive,unable to get review Critical Care Progress Note - Ventilator Checklist Daily Sedation Vacation: No (not on sedation) Daily Assessment of Readiness to Wean: Yes Daily Spontaneous Breathing Trial: Yes PUD Prophalyxis: Yes DVT Prophylaxis: Yes - Vent Settings MODE:: ASSIST CONTROL TIDAL VOLUME:: 500 RESP RATE:: 18 FIO2:: 70 PEEP:: 5 - Extremities/Vascular Does the Patient have a Central Venous Catheter?: Yes Insertion Site: Femoral Vein Does the Patient need a Central Venous Catheter?: Yes Does the Patient have a Maddox Catheter?: Yes Does the Patient need a Maddox Catheter?: Yes Catheter Insertion Criteria: Need for accurate measurement of output in critically ill patient - Prophylaxis GI Prophylaxis GI: Pepsid - Prophylaxis DVT Prophylaxis DVT: Heparin SQ - Nutrition Nutrition: Nutrition Category Date Time Status Heart Healthy Diet [DIET] Diets 03/05/17 Breakfast Active Assessment/Plan - Assessment and Plan (Free Text) Assessment: 1.Hypotension/sepsis probably related to perforated bowel on Iv antibiotics,fluids,pressors 2.Bowel perforation-CT chest with free air in abdomen awaiting CT abdomen surgical evaluation 3.Respiratory failure on ventilator 4.COPD/CHF Condition critical,prognosis poor
[2017-03-07] MEDS ORDERED: metroNIDAZOLE IV 500 mg/100 ml 500 MG/100 ML BAG IVPB SCH (07:00)
[2017-03-07 07:39] LABS: BASO % 0.1 % (0.0-2.0); HEMATOCRIT 39.8 % (34.0-47.0); LYMPH # 0.2 K/uL (1.0-4.3); LYMPH % 6.2 % (20.0-40.0); MEAN CELL VOLUME 89.4 fL (81.0-99.0); MEAN CORPUSCULAR HEMOGLOBIN 30.2 pg (27.0-31.0); MEAN CORPUSCULAR HGB CONC 33.8 g/dL (33.0-37.0); MEAN PLATELET VOLUME 7.7 fL (7.2-11.7); MONO # 0.1 K/uL (0.0-0.8); NRBC % 0.4 % (0.0-2.0); PLATELET COUNT 351 K/uL (130-400); RED CELL DISTRIBUTION WIDTH 14.1 % (11.5-14.5); WHITE BLOOD COUNT 3.9 K/uL (4.8-10.8)
[2017-03-07] MEDS: MethylPREDNISolone 40 mg Vial IVP SCH (08:14)
[2017-03-07 08:23] LABS: POTASSIUM 4.3 mmol/L (3.6-5.2)
[2017-03-07 08:25] LABS: BILIRUBIN,TOTAL 0.6 mg/dL (0.2-1.3)
[2017-03-07 08:26] LABS: ALB/GLOB RATIO 1.1 (1.0-2.1); CALCIUM 6.4 mg/dl (8.6-10.4); MAGNESIUM 2.5 mg/dL (1.6-2.3); PHOSPHOROUS 3.7 mg/dL (2.5-4.5); TOTAL PROTEIN 4.6 g/dL (6.3-8.3)
--- NOTE | 2017-03-07 08:38 | RAD ---
Chest x-ray single frontal view History: Post intubation. Comparison: 03/06/2017 Findings: Endotracheal tube low lying approximately 10 millimeters above the poppy. Mild venous congestion. Patchy bibasilar airspace opacities. Tortuous aorta. Calcification at the aortic knob. Degenerative changes in the spine and shoulders. Impression: Endotracheal tube low lying approximately 10 millimeters above the poppy. Mild venous congestion. Patchy bibasilar airspace opacities. Tortuous aorta. Calcification at the aortic knob.
--- NOTE | 2017-03-07 08:43 | RAD ---
PROCEDURE: CHEST RADIOGRAPH, 1 VIEW HISTORY: post intubation COMPARISON: 03/06/2017 FINDINGS: LUNGS: Lines and tubes in stable position. Mild venous congestion. Mild patchy bibasilar airspace opacities. Elevated right hemidiaphragm. PLEURA: No pneumothorax or pleural fluid seen. CARDIOVASCULAR: Normal. OSSEOUS STRUCTURES: Degenerative changes in the spine and shoulders. VISUALIZED UPPER ABDOMEN: Normal. OTHER FINDINGS: None. IMPRESSION: Lines and tubes in stable position. Mild venous congestion. Mild patchy bibasilar airspace opacities. Elevated right hemidiaphragm.
[2017-03-07] MEDS ORDERED: Dextrose 5%/0.9% NS 1,000 ML IV SCH (08:45)
--- NOTE | 2017-03-07 08:58 | RAD ---
Chest x-ray single frontal view History: Respiratory failure. Comparison: 03/06/2017 Findings: Lines and tubes in stable position. Moderate venous congestion. Patchy increased markings at the left lung base. Consolidative changes in the right suprahilar region. Biapical pleural thickening with upper lobe granulomatous changes. Elevated right hemidiaphragm. Tortuous aorta. Mild cardiomegaly. Impression: Lines and tubes in stable position. Moderate venous congestion. Patchy increased markings at the left lung base. Consolidative changes in the right suprahilar region. Biapical pleural thickening with upper lobe granulomatous changes. Elevated right hemidiaphragm. Tortuous aorta. Mild cardiomegaly.
[2017-03-07 09:07] LABS: METAMYELOCYTE 6 % (0-0); MYELOCYTE 3 % (0-0); NEUTROPHIL 15 % (50-75); NUCLEATED RED BLOOD CELL 1 % (0-0); TOTAL CELLS COUNTED 100
[2017-03-07 09:09] LABS: GIANT PLATELETS PRESENT; LARGE PLATELETS PRESENT
[2017-03-07] MEDS: Vitamin B Complex/Vitamin C Tab PO SCH (10:31)
[2017-03-07 12:10] VITALS: BP 96/50; PULSE 103; RESP 23; O2SAT 82
--- NOTE | 2017-03-07 14:08 | CP.PCM.DIS ---
Provider - Provider Date of Admission: 03/04/17 19:22 Attending physician: Valerio James MD Time Spent in preparation of Discharge (in minutes): 30 Hospital Course - Lab Results Lab Results: Most Recent Lab Values WBC 3.9 K/uL (4.8-10.8) L 03/07/17 07:15 RBC 4.46 Mil/uL (3.80-5.20) 03/07/17 07:15 Hgb 13.5 g/dL (11.0-16.0) 03/07/17 07:15 Hct 39.8 % (34.0-47.0) 03/07/17 07:15 MCV 89.4 fL (81.0-99.0) 03/07/17 07:15 MCH 30.2 pg (27.0-31.0) 03/07/17 07:15 MCHC 33.8 g/dL (33.0-37.0) 03/07/17 07:15 RDW 14.1 % (11.5-14.5) 03/07/17 07:15 Plt Count 351 K/uL (130-400) 03/07/17 07:15 MPV 7.7 fL (7.2-11.7) 03/07/17 07:15 Neut % (Auto) 90.7 % (50.0-75.0) H 03/07/17 07:15 Lymph % (Auto) 6.2 % (20.0-40.0) L 03/07/17 07:15 [place] % (Auto) 3.0 % (0.0-10.0) 03/07/17 07:15 Eos % (Auto) 0.0 % (0.0-4.0) 03/07/17 07:15 Baso % (Auto) 0.1 % (0.0-2.0) 03/07/17 07:15 Neut # 3.5 K/uL (1.8-7.0) 03/07/17 07:15 Lymph # 0.2 K/uL (1.0-4.3) L 03/07/17 07:15 [place] # 0.1 K/uL (0.0-0.8) 03/07/17 07:15 Eos # 0.0 K/uL (0.0-0.7) 03/07/17 07:15 Baso # 0.0 K/uL (0.0-0.2) 03/07/17 07:15 Neutrophils % (Manual) 15 % (50-75) L 03/07/17 07:15 Band Neutrophils % 57 % (0-2) H* 03/07/17 07:15 Lymphocytes % (Manual) 14 % (20-40) L 03/07/17 07:15 Reactive Lymphs % 10 % (0-0) H 03/07/17 00:54 Monocytes % (Manual) 5 % (0-10) 03/07/17 07:15 Metamyelocytes % 6 % (0-0) H 03/07/17 07:15 Myelocytes % 3 % (0-0) H 03/07/17 07:15 Nucleated RBC % 1 % (0-0) H 03/07/17 07:15 Toxic Granulation Present 03/07/17 07:15 Platelet Estimate Normal (NORMAL) 03/07/17 07:15 Large Platelets Present 03/07/17 07:15 Giant Platelets Present 03/07/17 07:15 RBC Morphology Normal 03/05/17 07:10 Polychromasia Slight 03/07/17 07:15 Hypochromasia (manual) Slight 03/07/17 07:15 Poikilocytosis (manual Slight 03/07/17 07:15 Anisocytosis (manual) Slight 03/07/17 07:15 Ovalocytes Slight 03/07/17 07:15 Luis A Cells Moderate 03/07/17 07:15 PT 10.4 SECONDS (9.7-12.2) 03/04/17 18:19 INR 0.9 03/04/17 18:19 APTT 29 SECONDS (21-34) 03/04/17 18:19 Puncture Site Rb 03/07/17 05:19 pCO2 55 mm/Hg (35-45) H 03/07/17 05:19 pO2 82 mm/Hg (80-100) 03/07/17 05:19 HCO3 22.2 mmol/L (21-28) 03/07/17 05:19 ABG pH 7.26 (7.35-7.45) L 03/07/17 05:19 ABG Total CO2 26.4 mmol/L (22-28) 03/07/17 05:19 ABG O2 Saturation 97.2 % (95-98) 03/07/17 05:19 ABG Base Excess -3.3 mmol/L (-2.0-3.0) L 03/07/17 05:19 ABG Hemoglobin 14.7 g/dL (11.7-17.4) 03/07/17 05:19 ABG Carboxyhemoglobin 2.0 % (0.5-1.5) H 03/07/17 05:19 POC ABG HHb (Measured) 2.7 % (0.0-5.0) 03/07/17 05:19 ABG Methemoglobin 1.8 % (0.0-3.0) 03/07/17 05:19 Telly Test Na 03/07/17 05:19 ABG Potassium 3.8 mmol/L (3.6-5.2) 03/06/17 16:15 A-a O2 Difference 348.0 mm/Hg 03/07/17 05:19 Respiratory Index 4.2 03/07/17 05:19 Hgb O2 Saturation 93.6 % (95.0-98.0) L 03/07/17 05:19 Sodium 130.0 mmol/l (132-148) L 03/06/17 16:15 Chloride 97.0 mmol/L (98-107) L 03/06/17 16:15 Glucose 104 mg/dl (65-105) 03/06/17 16:15 Lactate 1.7 mmol/L (0.7-2.1) 03/06/17 16:15 Vent Mode Prvc 03/07/17 05:19 Mechanical Rate 18 03/07/17 05:19 FiO2 70.0 % 03/07/17 05:19 Tidal Volume 500 03/07/17 05:19 PEEP 5 03/07/17 05:19 Inspiratory BiPAP 18 03/06/17 20:05 Expiratory BiPAP 10 03/06/17 20:05 Crit Value Called To Dr quin perez 03/06/17 16:15 Crit Value Called By Ta chacon rrt 03/06/17 16:15 Crit Value Read Back Y 03/06/17 16:15 Blood Gas Notified Time 1625 03/06/17 16:15 Sodium 129 mmol/L (132-148) L 03/07/17 07:15 Potassium 4.3 mmol/L (3.6-5.2) 03/07/17 07:15 Chloride 96 mmol/L (98-107) L 03/07/17 07:15 Carbon Dioxide 23 mmol/L (22-30) 03/07/17 07:15 Anion Gap 14 (10-20) 03/07/17 07:15 BUN 48 mg/dL (7-17) H 03/07/17 07:15 Creatinine 2.8 MG/DL (0.7-1.2) H 03/07/17 07:15 Est GFR ( Amer) 20 03/07/17 07:15 Est GFR (Non-Af Amer) 16 03/07/17 07:15 POC Glucose (mg/dL) 123 mg/dL (65-110) H 03/07/17 07:30 Random Glucose 116 mg/dL (65-105) H 03/07/17 07:15 Lactic Acid 1.6 mmol/L (0.7-2.1) 03/07/17 00:54 Calcium 6.4 mg/dl (8.6-10.4) L 03/07/17 07:15 Phosphorus 3.7 mg/dL (2.5-4.5) 03/07/17 07:15 Magnesium 2.5 mg/dL (1.6-2.3) H 03/07/17 07:15 Total Bilirubin 0.6 mg/dL (0.2-1.3) 03/07/17 07:15 AST 49 U/L (14-36) H D 03/07/17 07:15 ALT 35 U/L (9-52) 03/07/17 07:15 Alkaline Phosphatase 37 U/L (38-126) L 03/07/17 07:15 Total Creatine Kinase 50 U/L (30-135) 03/06/17 11:49 CK-MB (Mass) 1.92 ng/mL (0.0-3.38) 03/06/17 11:49 Troponin I 0.1160 ng/mL (0.00-0.120) 03/06/17 17:15 Troponin I, Quant 0.0950 ng/mL (0.00-0.120) 03/06/17 11:49 NT-Pro-B Natriuret Pep 7150 pg/mL (0-900) H 03/06/17 07:19 Total Protein 4.6 g/dL (6.3-8.3) L 03/07/17 07:15 Albumin 2.4 g/dL (3.5-5.0) L 03/07/17 07:15 Globulin 2.2 gm/dL (2.2-3.9) 03/07/17 07:15 Albumin/Globulin Ratio 1.1 (1.0-2.1) 03/07/17 07:15 Arterial Blood Potassium 3.8 mmol/L (3.6-5.2) 03/06/17 16:15 - Hospital Course Hospital Course: ADMITTED FROM ER WITH INCREASING SOB PT WAS D/C [facility] ON 03/03/17, AFTER COPD WITH EXACERBATION . CARDIAC W/U NEG . HAD LOW NA , WAS CORRECTED WITH IV FLUIDS AND LASIX PAST HIST. HTN/DM/NORMAL CORONARIES PT. INITIALLY IMPROVED ON BIPAP AND IV REGLAN CT CHEST SHOWED NO PE , CONSOLIDATIVE CHANGES ON 03/06 PT BECAME ABRUPTLY HYPOTENSIVE AND UNRESPONSIVE PT WAS INTUBATED ON DOPAMINE WAS STABILIZED PT CONTINOUS TO BE HYPOTENSIVE AND HYPOEXMIA A REPEAT CY CHEST WAS DONE WHICH SHOWED POSSIBLE VISCOUS PERFORATION THERE WAS PNEUMOPERITONEUM SURGICAL/ID WERE CONSULTED FEW HRS LATER THE FAMILY CAME BACK AND REQUESTED EXTUBATION AND DNR . THE ORDERS WERE CARRIED OUT BY THE INTENSEVIST PT AND HR. LATER Discharge Exam - Head Exam Head Exam: ATRAUMATIC, NORMAL INSPECTION Discharge Plan - Follow Up Plan Condition: FAIR Disposition: HOME/ ROUTINE
--- NOTE | 2017-03-07 21:48 | CP.PCM.CON ---
Past Patient History - Past Medical History & Family History Past Medical History?: Yes - Past Social History Smoking Status: Never Smoked - CARDIAC Hx Congestive Heart Failure: Yes Hx Hypercholesterolemia: Yes Hx Hypertension: Yes - PULMONARY Hx Asthma: Yes - NEUROLOGICAL Hx Alzheimer's Disease: Yes - HEENT Hx HEENT Problems: Yes Hx Cataracts: Yes (bilateral) - RENAL Hx Chronic Kidney Disease: No - ENDOCRINE/METABOLIC Hx Diabetes Mellitus Type 2: Yes - HEMATOLOGICAL/ONCOLOGICAL Hx Blood Disorders: Yes - INTEGUMENTARY Hx Dermatological Problems: No - MUSCULOSKELETAL/RHEUMATOLOGICAL Hx Arthritis: Yes - GASTROINTESTINAL Hx Gastrointestinal Disorders: No - GENITOURINARY/GYNECOLOGICAL Hx Genitourinary Disorders: No - PSYCHIATRIC Hx Substance Use: No - SURGICAL HISTORY Hx Cholecystectomy: Yes - ANESTHESIA Hx Anesthesia: Yes Hx Anesthesia Reactions: No Hx Malignant Hyperthermia: No Meds Allergies/Adverse Reactions: Allergies Allergy/AdvReac Type Severity Reaction Status Date / Time No Known Allergies Allergy Verified 02/28/17 17:13 Results - Vital Signs Recent Vital Signs: Last Vital Signs Temp 97.6 F 03/06/17 08:07 Pulse 103 H 03/07/17 12:01 Resp 23 03/07/17 12:01 BP 96/50 L 03/07/17 12:01 Pulse Ox 82 L 03/07/17 12:01 - Labs Result Diagrams: 03/07/17 07:15 03/07/17 07:15 Labs: Laboratory Results - last 24 hr 03/06/17 03/06/17 03/07/17 22:30 23:44 00:13 WBC RBC Hgb Hct MCV MCH MCHC RDW Plt Count MPV Neut % (Auto) Lymph % (Auto) [place] % (Auto) Eos % (Auto) Baso % (Auto) Neut # Lymph # [place] # Eos # Baso # Neutrophils % (Manual) Band Neutrophils % Lymphocytes % (Manual) Reactive Lymphs % Monocytes % (Manual) Metamyelocytes % Myelocytes % Nucleated RBC % Toxic Granulation Platelet Estimate Large Platelets Giant Platelets Polychromasia Hypochromasia (manual) Poikilocytosis (manual Anisocytosis (manual) Ovalocytes Luis A Cells Puncture Site Rra pCO2 51 H pO2 60 L HCO3 22.7 ABG pH 7.29 L ABG Total CO2 26.1 ABG O2 Saturation 94.2 L ABG Base Excess -2.6 L ABG Hemoglobin 13.3 ABG Carboxyhemoglobin 1.9 H POC ABG HHb (Measured) 5.6 H ABG Methemoglobin 1.0 Telly Test Pos A-a O2 Difference 304.0 Respiratory Index 5.1 Hgb O2 Saturation 91.5 L Vent Mode A/c Mechanical Rate FiO2 60.0 Tidal Volume 500 PEEP 5 Sodium Potassium Chloride Carbon Dioxide Anion Gap BUN Creatinine Est GFR ( Amer) Est GFR (Non-Af Amer) POC Glucose (mg/dL) 90 66 Random Glucose Lactic Acid Calcium Phosphorus Magnesium Total Bilirubin AST ALT Alkaline Phosphatase Total Protein Albumin Globulin Albumin/Globulin Ratio 03/07/17 03/07/17 03/07/17 00:54 00:54 00:54 WBC 5.1 RBC 4.51 Hgb 13.4 Hct 40.4 MCV 89.5 MCH 29.6 MCHC 33.1 RDW 14.3 Plt Count 355 MPV 7.8 Neut % (Auto) 87.9 H Lymph % (Auto) 8.7 L [place] % (Auto) 3.2 Eos % (Auto) 0.1 Baso % (Auto) 0.1 Neut # 4.4 Lymph # 0.4 L [place] # 0.2 Eos # 0.0 Baso # 0.0 Neutrophils % (Manual) 23 L Band Neutrophils % 43 H* Lymphocytes % (Manual) 8 L Reactive Lymphs % 10 H Monocytes % (Manual) 7 Metamyelocytes % 5 H Myelocytes % 4 H Nucleated RBC % 1 H Toxic Granulation Platelet Estimate Normal Large Platelets Giant Platelets Polychromasia Hypochromasia (manual) Poikilocytosis (manual Anisocytosis (manual) Ovalocytes Luis A Cells Puncture Site pCO2 pO2 HCO3 ABG pH ABG Total CO2 ABG O2 Saturation ABG Base Excess ABG Hemoglobin ABG Carboxyhemoglobin POC ABG HHb (Measured) ABG Methemoglobin Etlly Test A-a O2 Difference Respiratory Index Hgb O2 Saturation Vent Mode Mechanical Rate FiO2 Tidal Volume PEEP Sodium 128 L Potassium 4.1 Chloride 95 L Carbon Dioxide 24 Anion Gap 13 BUN 44 H Creatinine 2.4 H Est GFR ( Amer) 24 Est GFR (Non-Af Amer) 20 POC Glucose (mg/dL) Random Glucose 174 H Lactic Acid 1.6 Calcium 6.7 L Phosphorus 3.4 Magnesium 2.5 H Total Bilirubin 0.5 AST 39 H D ALT 37 Alkaline Phosphatase 37 L Total Protein 4.6 L Albumin 2.5 L Globulin 2.1 L Albumin/Globulin Ratio 1.2 03/07/17 03/07/17 03/07/17 01:22 02:38 04:08 WBC RBC Hgb Hct MCV MCH MCHC RDW Plt Count MPV Neut % (Auto) Lymph % (Auto) [place] % (Auto) Eos % (Auto) Baso % (Auto) Neut # Lymph # [place] # Eos # Baso # Neutrophils % (Manual) Band Neutrophils % Lymphocytes % (Manual) Reactive Lymphs % Monocytes % (Manual) Metamyelocytes % Myelocytes % Nucleated RBC % Toxic Granulation Platelet Estimate Large Platelets Giant Platelets Polychromasia Hypochromasia (manual) Poikilocytosis (manual Anisocytosis (manual) Ovalocytes [place] Cells Puncture Site pCO2 pO2 HCO3 ABG pH ABG Total CO2 ABG O2 Saturation ABG Base Excess ABG Hemoglobin ABG Carboxyhemoglobin POC ABG HHb (Measured) ABG Methemoglobin Telly Test A-a O2 Difference Respiratory Index Hgb O2 Saturation Vent Mode Mechanical Rate FiO2 Tidal Volume PEEP Sodium Potassium Chloride Carbon Dioxide Anion Gap BUN Creatinine Est GFR ( Amer) Est GFR (Non-Af Amer) POC Glucose (mg/dL) 161 H 144 H 95 Random Glucose Lactic Acid Calcium Phosphorus Magnesium Total Bilirubin AST ALT Alkaline Phosphatase Total Protein Albumin Globulin Albumin/Globulin Ratio 03/07/17 03/07/17 03/07/17 05:19 06:26 07:15 WBC 3.9 L RBC 4.46 Hgb 13.5 Hct 39.8 MCV 89.4 MCH 30.2 MCHC 33.8 RDW 14.1 Plt Count 351 MPV 7.7 Neut % (Auto) 90.7 H Lymph % (Auto) 6.2 L [place] % (Auto) 3.0 Eos % (Auto) 0.0 Baso % (Auto) 0.1 Neut # 3.5 Lymph # 0.2 L [place] # 0.1 Eos # 0.0 Baso # 0.0 Neutrophils % (Manual) 15 L Band Neutrophils % 57 H* Lymphocytes % (Manual) 14 L Reactive Lymphs % Monocytes % (Manual) 5 Metamyelocytes % 6 H Myelocytes % 3 H Nucleated RBC % 1 H Toxic Granulation Present Platelet Estimate Normal Large Platelets Present Giant Platelets Present Polychromasia Slight Hypochromasia (manual) Slight Poikilocytosis (manual Slight Anisocytosis (manual) Slight Ovalocytes Slight [place] Cells Moderate Puncture Site Rb pCO2 55 H pO2 82 HCO3 22.2 ABG pH 7.26 L ABG Total CO2 26.4 ABG O2 Saturation 97.2 ABG Base Excess -3.3 L ABG Hemoglobin 14.7 ABG Carboxyhemoglobin 2.0 H POC ABG HHb (Measured) 2.7 ABG Methemoglobin 1.8 Telly Test Na A-a O2 Difference 348.0 Respiratory Index 4.2 Hgb O2 Saturation 93.6 L Vent Mode Prvc Mechanical Rate 18 FiO2 70.0 Tidal Volume 500 PEEP 5 Sodium Potassium Chloride Carbon Dioxide Anion Gap BUN Creatinine Est GFR ( Amer) Est GFR (Non-Af Amer) POC Glucose (mg/dL) 106 Random Glucose Lactic Acid Calcium Phosphorus Magnesium Total Bilirubin AST ALT Alkaline Phosphatase Total Protein Albumin Globulin Albumin/Globulin Ratio 03/07/17 03/07/17 07:15 07:30 WBC RBC Hgb Hct MCV MCH MCHC RDW Plt Count MPV Neut % (Auto) Lymph % (Auto) [place] % (Auto) Eos % (Auto) Baso % (Auto) Neut # Lymph # [place] # Eos # Baso # Neutrophils % (Manual) Band Neutrophils % Lymphocytes % (Manual) Reactive Lymphs % Monocytes % (Manual) Metamyelocytes % Myelocytes % Nucleated RBC % Toxic Granulation Platelet Estimate Large Platelets Giant Platelets Polychromasia Hypochromasia (manual) Poikilocytosis (manual Anisocytosis (manual) Ovalocytes [place] Cells Puncture Site pCO2 pO2 HCO3 ABG pH ABG Total CO2 ABG O2 Saturation ABG Base Excess ABG Hemoglobin ABG Carboxyhemoglobin POC ABG HHb (Measured) ABG Methemoglobin Telly Test A-a O2 Difference Respiratory Index Hgb O2 Saturation Vent Mode Mechanical Rate FiO2 Tidal Volume PEEP Sodium 129 L Potassium 4.3 Chloride 96 L Carbon Dioxide 23 Anion Gap 14 BUN 48 H Creatinine 2.8 H Est GFR ( Amer) 20 Est GFR (Non-Af Amer) 16 POC Glucose (mg/dL) 123 H Random Glucose 116 H Lactic Acid Calcium 6.4 L Phosphorus 3.7 Magnesium 2.5 H Total Bilirubin 0.6 AST 49 H D ALT 35 Alkaline Phosphatase 37 L Total Protein 4.6 L Albumin 2.4 L Globulin 2.2 Albumin/Globulin Ratio 1.1
--- NOTE | 2017-03-08 07:38 | CP.PCM.CON ---
<BessieJuliet - Last Filed: 03/08/17 07:38> History of Present Illness - History of Present Illness History of Present Illness: GENERAL SURGERY CONSULT NOTE FOR DR. APARICIO 76yo F with PMHx of HTN, DM, CHF, COPD presented to the ED on 03/04 for SOB and was admitted for COPD and CHF exacerbation. On 03/06, she became hypotensive and SOB. She also had abdominal pain. A rapid response was called. CXR was negative for free air. She was sent to the ICU. There she developed respiratory distress and was intubated. She was put on dopamine. A repeat CT Chest showed pneumoperitoneum with possible perforated viscous. Surgery was consulted for free air. Options of surgery vs conservative care were discussed with patient's family members. Family declined surgery and requested DNR with terminal extubation. Patient after extubation. PMHx: HTN, DM, CHF (last EF 55.8% on 03/03 ECHO), COPD, asthma, hyperlipideamia , alzheimers, arthritis Surgeries: cholecystectomy Allergies: none Review of Systems - Review of Systems Systems not reviewed;Unavailable: Altered Mental Status, Intubated Past Patient History - Past Medical History & Family History Past Medical History?: Yes - Past Social History Smoking Status: Never Smoked - CARDIAC Hx Congestive Heart Failure: Yes Hx Hypercholesterolemia: Yes Hx Hypertension: Yes - PULMONARY Hx Asthma: Yes - NEUROLOGICAL Hx Alzheimer's Disease: Yes - HEENT Hx HEENT Problems: Yes Hx Cataracts: Yes (bilateral) - RENAL Hx Chronic Kidney Disease: No - ENDOCRINE/METABOLIC Hx Diabetes Mellitus Type 2: Yes - HEMATOLOGICAL/ONCOLOGICAL Hx Blood Disorders: Yes - INTEGUMENTARY Hx Dermatological Problems: No - MUSCULOSKELETAL/RHEUMATOLOGICAL Hx Arthritis: Yes - GASTROINTESTINAL Hx Gastrointestinal Disorders: No - GENITOURINARY/GYNECOLOGICAL Hx Genitourinary Disorders: No - PSYCHIATRIC Hx Substance Use: No - SURGICAL HISTORY Hx Cholecystectomy: Yes - ANESTHESIA Hx Anesthesia: Yes Hx Anesthesia Reactions: No Hx Malignant Hyperthermia: No Meds Allergies/Adverse Reactions: Allergies Allergy/AdvReac Type Severity Reaction Status Date / Time No Known Allergies Allergy Verified 02/28/17 17:13 Physical Exam - Constitutional Appears: Chronically Ill - Head Exam Head Exam: ATRAUMATIC, NORMAL INSPECTION - Neck Exam Neck exam: Positive for: Normal Inspection - Respiratory Exam Respiratory Exam: NORMAL BREATHING PATTERN (on mechanical ventilation) - Cardiovascular Exam Cardiovascular Exam: Tachycardia - GI/Abdominal Exam GI & Abdominal Exam: Soft, Tenderness (tenderness on deep palpation). absent: Distended, Firm, Rebound, Rigid - Neurological Exam Neurological exam: Altered (pt only responds to pain) - Skin Skin Exam: Dry, Normal Color, Warm Results - Vital Signs Recent Vital Signs: Last Vital Signs Temp 97.6 F 03/06/17 08:07 Pulse 103 H 03/07/17 12:01 Resp 23 03/07/17 12:01 BP 96/50 L 03/07/17 12:01 Pulse Ox 82 L 03/07/17 12:01 - Labs Result Diagrams: 03/07/17 07:15 03/07/17 07:15 Labs: Laboratory Results - last 24 hr 03/07/17 03/07/17 03/07/17 07:15 07:15 07:30 WBC 3.9 L RBC 4.46 Hgb 13.5 Hct 39.8 MCV 89.4 MCH 30.2 MCHC 33.8 RDW 14.1 Plt Count 351 MPV 7.7 Neut % (Auto) 90.7 H Lymph % (Auto) 6.2 L [place] % (Auto) 3.0 Eos % (Auto) 0.0 Baso % (Auto) 0.1 Neut # 3.5 Lymph # 0.2 L [place] # 0.1 Eos # 0.0 Baso # 0.0 Neutrophils % (Manual) 15 L Band Neutrophils % 57 H* Lymphocytes % (Manual) 14 L Monocytes % (Manual) 5 Metamyelocytes % 6 H Myelocytes % 3 H Nucleated RBC % 1 H Toxic Granulation Present Platelet Estimate Normal Large Platelets Present Giant Platelets Present Polychromasia Slight Hypochromasia (manual) Slight Poikilocytosis (manual Slight Anisocytosis (manual) Slight Ovalocytes Slight Luis A Cells Moderate Sodium 129 L Potassium 4.3 Chloride 96 L Carbon Dioxide 23 Anion Gap 14 BUN 48 H Creatinine 2.8 H Est GFR ( Amer) 20 Est GFR (Non-Af Amer) 16 POC Glucose (mg/dL) 123 H Random Glucose 116 H Calcium 6.4 L Phosphorus 3.7 Magnesium 2.5 H Total Bilirubin 0.6 AST 49 H D ALT 35 Alkaline Phosphatase 37 L Total Protein 4.6 L Albumin 2.4 L Globulin 2.2 Albumin/Globulin Ratio 1.1 Assessment & Plan - Assessment and Plan (Free Text) Assessment: 76yo F with PMHx of HTN, DM, CHF, COPD who was admitted for COPD and CHF exacerbation and found to have free air and possible perforated viscous - Afebrile, mild tachycardia - Mild hypotension on Dopamine - Repeat CT Chest showed pneumoperitoneum with possible perforated viscous - Options of surgery vs conservative care were discussed with patient's family members. - Family declined surgery and requested DNR with terminal extubation. Patient after extubation. - Discussed plan with Dr. Alessandra La PGY-3 <Arron Aparicio - Last Filed: 03/08/17 10:29> Results - Vital Signs Recent Vital Signs: Last Vital Signs Temp 97.6 F 03/06/17 08:07 Pulse 103 H 03/07/17 12:01 Resp 23 03/07/17 12:01 BP 96/50 L 03/07/17 12:01 Pulse Ox 82 L 03/07/17 12:01 - Labs Result Diagrams: 03/07/17 07:15 03/07/17 07:15 Attending/Attestation - Attestation I have personally seen and examined this patient.: Yes I have fully participated in the care of the patient.: Yes I have reviewed all pertinent clinical information: Yes Notes (Text): 03/08/17 10:25 Pt was seen and examined at bedside Agree with above note and assessment Pt with Acute Abdomen and Perforated viscus with septic shock Abdomen: Soft, Tender all over abdomen Neck: Supple, Intubated Neuro: Sedated, Unable to examine Ass: Perforated viscus with septic shock Plan: Option of surgical intervention discussed with pt don't want any kind of operative intervention as per pt's previous wishes C.w IV antibiotics Plan d.w pt's family, Nurse, ICU attending in detail Risk and benefit explained in detail.
--- NOTE | 2017-03-09 16:32 | CARD ---
APPROVED REPORT EKG Measurement Heart [id number] NC [id number] <Conclusion> Normal sinus rhythm Left axis deviation Left bundle branch block Abnormal ECG
--- NOTE | 2017-03-09 16:36 | CARD ---
APPROVED REPORT EKG Measurement Heart [id number] MD [id number] <Conclusion> Sinus rhythm with occasional premature ventricular complexes and premature atrial complexes Left axis deviation Left bundle branch block Abnormal ECG
--- NOTE | 2017-03-09 22:18 | CARD ---
APPROVED REPORT EKG Measurement Heart [id number] <Conclusion> Sinus rhythm with premature atrial complexes LBBB Left axis deviation Left ventricular hypertrophy with QRS widening and repolarization abnormality Inferior infarct, age undetermined Anterolateral infarct, age undetermined Abnormal ECG
== END 2017-03-07 12:45 | DRG 208 ==
LOC: C.ER 16:56 → C.9E 19:22 → C.5S 22:02 → C.9I 03-06 16:27
PROVIDERS: ADMIT Internal Medicine Cardiovascular Disease; ATTEND Internal Medicine Cardiovascular Disease
PROC: 5A09457 Assistance with Respiratory Ventilation, 24-96 Consecutive Hours, Continuous Positive Airway Pressure (ICD-10-PCS; principal; 2017-03-04)
PROC: 5A1935Z Respiratory Ventilation, Less than 24 Consecutive Hours (ICD-10-PCS; 2017-03-06)
PROC: 0BH17EZ Insertion of Endotracheal Airway into Trachea, Via Natural or Artificial Opening (ICD-10-PCS; 2017-03-06)
PROC: 06HY33Z Insertion of Infusion Device into Lower Vein, Percutaneous Approach (ICD-10-PCS; 2017-03-07)
DX: J44.1 Chronic obstructive pulmonary disease with (acute) exacerbation (principal); J96.01 Acute respiratory failure with hypoxia; K63.1 Perforation of intestine (nontraumatic); I50.30 Unspecified diastolic (congestive) heart failure; I11.0 Hypertensive heart disease with heart failure; G30.9 Alzheimer's disease, unspecified; F02.80 Dementia in other diseases classified elsewhere, unspecified severity, without behavioral disturbance, psychotic disturbance, mood disturbance, and anxiety; E86.0 Dehydration; I35.0 Nonrheumatic aortic (valve) stenosis; I44.7 Left bundle-branch block, unspecified; E78.5 Hyperlipidemia, unspecified; K44.9 Diaphragmatic hernia without obstruction or gangrene; E11.649 Type 2 diabetes mellitus with hypoglycemia without coma